=== PATIENT | female | born 1945 | race Caucasian/White ===

== ENCOUNTER → 2024-12-19 | Outpatient (CLI) | payer OTHER, SELFPAY ==
[2024-12-19 12:15] LABS: Basophils # (Auto) 0.1 Thou/mm3 (0.0-0.2); Basophils % (Auto) 1 % (0-2.5); Eosinophils # (Auto) 0.4 Thou/mm3 (0.0-0.5); Eosinophils % (Auto) 5 % (0-10); Hematocrit 45.6 % (36.0-46.0); Hemoglobin 15.0 g/dL (12.0-16.0); Immature Granulocytes Auto 0.03 Thou/mm3 (0.00-0.00); Lymphocytes # (Auto) 2.3 Thou/mm3 (1.0-4.8); Lymphocytes % (Auto) 30 % (10-50); Mean Corpuscular HGB Conc 32.9 g/dl (31.0-37.0); Mean Corpuscular Hemoglobin 30.7 pg (25.0-35.0); Mean Corpuscular Volume 93 fL (80-100); Monocytes # (Auto) 0.5 Thou/mm3 (0.0-0.8); Monocytes % (Auto) 7 % (0-12); Neutrophils # (Auto) 4.3 Thou/mm3 (1.8-7.7); Neutrophils % (Auto) 57 % (37-80); Nucleated Red Blood Cell # 0.00 Thou/mm3 (0.00-0.00); Nucleated Red Blood Cell % 0 /100 WBC (0); Platelet Count 260 Thou/mm3 (140-440); RDW Standard Deviation 45.6 fL (36.4-46.3); Red Blood Count 4.88 Miln/mm3 (4.00-5.20); White Blood Count 7.6 Thou/mm3 (3.6-11.0)
[2024-12-19 12:36] LABS: Alanine Aminotransferase 8 U/L (10-49); Albumin, Serum 4.0 gm/dL (3.4-4.8); Albumin/Globulin Ratio 1.6 (1.2-2.2); Alkaline Phosphatase 84 U/L (46-116); Anion Gap 10 (7-16); Aspartate Amino Transferase 15 U/L (0-34); BUN/Creatinine Ratio 9 Ratio (12-20); Bilirubin,Total 0.6 mg/dL (0.3-1.2); Blood Urea Nitrogen 8 mg/dL (9-23); Calcium 9.5 mg/dL (8.3-10.6); Calcium (Corrected) 9.5 mg/dL (8.5-10.1); Carbon Dioxide 26.0 mMol/L (20.0-31.0); Cardiac Risk Estimate 5.0 RATIO (3.7-5.6); Chloride 107 mMol/L (98-107); Cholesterol 229 mg/dL (132-200); Creatinine (Component) 0.9 mg/dL (0.6-1.3); Globulin 2.5 gm/dL (2.3-3.5); Glucose 104 mg/dL (74-106); HDL Cholesterol 46 mg/dL (40-60); LDL Cholesterol,Calculated 156 mg/dL (0-130); Osmolality,Calculated 283 (275-295); Potassium 4.1 mMol/L (3.4-5.1); Sodium 143 mMol/L (136-145); Total Protein 6.5 gm/dL (5.7-8.2); Triglycerides 134 mg/dL (30-150); eGFR > 60 See Note
[2024-12-19 12:50] LABS: Collection Type, Urine Clean Catch
[2024-12-19 13:35] LABS: Bacteria,Urine Rare; Bilirubin,Urine Negative (Negative); Blood,Urine Negative (Negative); Color,Urine Yellow (Lt Yel-Yel); Glucose, Urine Negative (Negative); Hyaline Casts,Urine < 1 /hpf (0-1); Ketones,Urine Negative (Negative); Leukocyte Esterase,Urine Positive (Negative); Nitrite,Urine Negative (Negative); PH,Urine 6.0 (5.0-7.0); Protein,Urine Trace (Neg - Trace); RBC,Urine 6 /hpf (0-3); Specific Gravity,Urine 1.022 (1.001-1.035); Squamous Epithelial Cell,Urine 20 /hpf (0-5); Urobilinogen,Urine Negative mg/dL (0.0-1.0); WBC,Urine 18 /hpf (0-5)
[2024-12-19 13:41] LABS: Clarity,Urine Hazy (Clear/Hazy)
== END | disposition home or self-care (01) ==
PROVIDERS: PCP Internal Medicine; Referring Provider Internal Medicine; Visit Provider Internal Medicine
DX: I10 Essential (primary) hypertension (principal); E78.5 Hyperlipidemia, unspecified
CPT/HCPCS: 36415; 80053; 80061; 81001; 85025

== ENCOUNTER → 2025-04-04 | Outpatient (CLI) | payer OTHER, SELFPAY ==
[2025-04-04 11:57] LABS: Collection Type, Urine Clean Catch
[2025-04-04 12:14] LABS: Basophils # (Auto) 0.1 Thou/mm3 (0.0-0.2); Basophils % (Auto) 1 % (0-2.5); Eosinophils # (Auto) 0.4 Thou/mm3 (0.0-0.5); Eosinophils % (Auto) 4 % (0-10); Hematocrit 45.3 % (36.0-46.0); Hemoglobin 15.0 g/dL (12.0-16.0); Immature Granulocytes Auto 0.04 Thou/mm3 (0.00-0.00); Lymphocytes # (Auto) 2.0 Thou/mm3 (1.0-4.8); Lymphocytes % (Auto) 22 % (10-50); Mean Corpuscular HGB Conc 33.1 g/dl (31.0-37.0); Mean Corpuscular Hemoglobin 30.5 pg (25.0-35.0); Mean Corpuscular Volume 92 fL (80-100); Monocytes # (Auto) 0.8 Thou/mm3 (0.0-0.8); Monocytes % (Auto) 9 % (0-12); Neutrophils # (Auto) 5.7 Thou/mm3 (1.8-7.7); Neutrophils % (Auto) 64 % (37-80); Nucleated Red Blood Cell # 0.00 Thou/mm3 (0.00-0.00); Nucleated Red Blood Cell % 0 /100 WBC (0); Platelet Count 251 Thou/mm3 (140-440); RDW Standard Deviation 45.6 fL (36.4-46.3); Red Blood Count 4.91 Miln/mm3 (4.00-5.20); White Blood Count 9.0 Thou/mm3 (3.6-11.0)
[2025-04-04 12:23] LABS: Glucose Estimated Average 120 mg/dL (80-131); Hemoglobin A1C 5.8 % Hgb (4.8-6.0)
[2025-04-04 12:25] LABS: Bacteria,Urine Rare; Bilirubin,Urine Negative (Negative); Blood,Urine Negative (Negative); Clarity,Urine Clear (Clear/Hazy); Color,Urine Yellow (Lt Yel-Yel); Glucose, Urine Negative (Negative); Hyaline Casts,Urine < 1 /hpf (0-1); Ketones,Urine Negative (Negative); Leukocyte Esterase,Urine Positive (Negative); Nitrite,Urine Negative (Negative); PH,Urine 6.5 (5.0-7.0); Protein,Urine Trace (Neg - Trace); RBC,Urine 3 /hpf (0-3); Specific Gravity,Urine 1.022 (1.001-1.035); Squamous Epithelial Cell,Urine 3 /hpf (0-5); Urobilinogen,Urine 3.0 mg/dL (0.0-1.0); WBC,Urine 6 /hpf (0-5)
[2025-04-04 12:33] LABS: Vitamin B12 402 pg/mL (211-911); Vitamin D 25 Hydroxy Total 59.6 ng/mL (7.3-40.2)
[2025-04-04 12:35] LABS: Alanine Aminotransferase 8 U/L (10-49); Albumin, Serum 4.4 gm/dL (3.4-4.8); Albumin/Globulin Ratio 2.0 (1.2-2.2); Alkaline Phosphatase 97 U/L (46-116); Anion Gap 10 (7-16); Aspartate Amino Transferase 17 U/L (0-34); BUN/Creatinine Ratio 8 Ratio (12-20); Bilirubin,Total 1.1 mg/dL (0.3-1.2); Blood Urea Nitrogen 7 mg/dL (9-23); Calcium 9.4 mg/dL (8.3-10.6); Calcium (Corrected) 9.4 mg/dL (8.5-10.1); Carbon Dioxide 27.9 mMol/L (20.0-31.0); Cardiac Risk Estimate 5.3 RATIO (3.7-5.6); Chloride 106 mMol/L (98-107); Cholesterol 210 mg/dL (132-200); Creatinine (Component) 0.9 mg/dL (0.6-1.3); Globulin 2.2 gm/dL (2.3-3.5); Glucose 93 mg/dL (74-106); HDL Cholesterol 40 mg/dL (40-60); LDL Cholesterol,Calculated 151 mg/dL (0-130); Osmolality,Calculated 284 (275-295); Potassium 3.5 mMol/L (3.4-5.1); Sodium 144 mMol/L (136-145); Thyroid Stimulating Hormone 3.75 uIU/mL (0.55-4.78); Total Protein 6.6 gm/dL (5.7-8.2); Triglycerides 93 mg/dL (30-150); Uric Acid 5.1 mg/dL (3.1-7.8); eGFR > 60 See Note
== END | disposition home or self-care (01) ==
PROVIDERS: PCP Internal Medicine; Referring Provider Internal Medicine; Visit Provider Internal Medicine
DX: Z00.00 Encounter for general adult medical examination without abnormal findings (principal); I10 Essential (primary) hypertension; E78.5 Hyperlipidemia, unspecified; E03.9 Hypothyroidism, unspecified; R73.03 Prediabetes; E79.0 Hyperuricemia without signs of inflammatory arthritis and tophaceous disease; D51.9 Vitamin B12 deficiency anemia, unspecified; E55.9 Vitamin D deficiency, unspecified
CPT/HCPCS: 36415; 80053; 80061; 81001; 82306; 82607; 83036; 84443; 84550; 85025

== ENCOUNTER → 2025-05-15 | Outpatient (CLI) | payer OTHER, SELFPAY ==
--- NOTE | 2025-05-15 13:00 | XR_ITS ---
Examination: Screening digital mammography, bilateral Computer aided detection 3-D breast Tomosynthesis, bilateral Date and time of exam: May 15, 2025, at 1317 hours, compared to mammograms dating to June 12, 2006 Indication: Screening Technique: Nonmagnified MLO, CC views of the breasts to been obtained, reconstructed from 3-D Tomosynthesis images. R2 computer aided detection program utilized for evaluation of suspicious masses and/or abnormal calcifications. 3-D Tomosynthesis images obtained. Findings: Scattered areas of fibroglandular density. Benign calcifications. No interval suspicious mass Impression: BI-RADS category II: Benign Findings. Recommend 1 year follow-up mammogram.
--- NOTE | 2025-05-15 13:15 | XR_ITS ---
Examination: Bone densitometry Date and time of exam: May 15, 2025, 1339 hours INDICATIONS: Menopause age 55 Technique: Lumbar spine and hip total bone mineralization values of an calculated. Peak reference and age match control results have been displayed. Findings: Lumbar spine total bone mineralization is 1.213 gm/cm2. This is 1.5 standard deviations above peak reference. This is 4.1 standard deviations above age-matched controls. Hip total bone mineralization is 1.826 gm/cm2 This is 1.0 standard deviations below peak reference. This is 1.0 standard deviations above age-matched controls Impression: There is normal mineralization based on lumbar spine measurements. There is osteopenia based on hip measurements Lumbar mineralization is increased 14.6% compared to January 02, 2010 Hip mineralization is decreased 19.2% compared with January 03, 2000
== END | disposition home or self-care (01) ==
LOC: CDIM 13:09
PROVIDERS: PCP Internal Medicine; Referring Provider Internal Medicine; Visit Provider Internal Medicine
DX: Z12.31 Encounter for screening mammogram for malignant neoplasm of breast (principal); R92.323 Mammographic fibroglandular density, bilateral breasts; R92.1 Mammographic calcification found on diagnostic imaging of breast; M85.89 Other specified disorders of bone density and structure, multiple sites
CPT/HCPCS: 77063; 77067; 77080

== ENCOUNTER 2025-06-01 14:47 | Inpatient (IN) | payer OTHER, MEDICARE, SELFPAY ==
[2025-06-01 14:48] VITALS: BP 143/86; PULSE 98; RESP 18; TEMP 36.4; O2SAT 95
--- NOTE | 2025-06-01 15:51 | PC.NURSE ---
Pt BIBA from home, lives alone. Hx Dementia and HLD per EMS. Daughter told EMS she had attempted to contact pt with no success, called PD for wellfare check, they were unable to make contact. Dtr ended up going to check on pt herself and found her laying in bed, very weak and lethargic. Called EMS due to the inability/fear of taking the pt to urgent care herself. Pt denies pain, unsure of symptoms, able to state Name, Birthday, and location, but not current month and upcoming holiday. Waiting for dtr to arrived (EMS stated that she should be on her way) to get more info/accurate info. Pt currently stable, and lying in gurney awake.
--- NOTE | 2025-06-01 16:02 | PC.NURSE ---
Dtr states pt has been sick for awhile and has not been getting better. States when she called pt yesterday, pt took awhile to answer (usually answers quickly), and today could not get ahold of her. Dtr found pt in recliner, naked. Pt was able to walk when dtr saw her. Pt has been coughing a bunch per dtr. Takes losartan, has a hernia, atorvastatin, mematine.
--- NOTE | 2025-06-01 16:17 | EKG_ITS ---
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: : [id number] Requested By: Melly Turner Order Number: [id number] Reading MD: Melly Turner Measurements Intervals [place] Rate: 85 P: 26 HI: 164 QRS: -13 QRSD: 107 T: 65 QT: 398 QTc: 474 Interpretive Statements SINUS RHYTHM WITH OCCASIONAL VENTRICULAR PREMATURE COMPLEXES WITH OCCASIONAL SUPRAVENTRICULAR PREMATURE COMPLEXES MINIMAL VOLTAGE CRITERIA FOR LVH, CONSIDER NORMAL VARIANT [MEETS CRITERIA IN ONE OF: R(aVL), S(V1), R(V5), R(V5/V6)+S(V1)] NONSPECIFIC T-WAVE ABNORMALITY Compared to ECG 11/19/2023 09:56:23 Ventricular premature complex(es) now present T-wave abnormality now present /store/S0/[id number]/[id number].pdf
--- NOTE | 2025-06-01 16:19 | XR_ITS ---
Examination: CT brain head without contrast. 2-D sagittal coronal reconstructions Date and time of exam: June 01, 2025, 1804 hours INDICATIONS: Altered mental status confusion today CTDI: vol (mGy): 47.1 DLP: (mGycm): 897 Technique: Multiple CT axial sections of the brain have been obtained, 5 mm slice thickness. Contrast has not been administered. 2-D sagittal, coronal reconstructions have been obtained Low dose protocols were performed. One or more of the following dose reduction techniques were used; automated exposure control, adjustment of the mA and/or KV according to patient size, use of iterative reconstruction technique. Findings: No significant ventricular enlargement. Intra-axial or extra-axial hemorrhage density is not seen. No mass effect or midline shift Basal cisterns are not remarkable. Fourth ventricle is midline. Cranial vault intact. Impression: Negative for acute hemorrhage, mass effect or midline shift Advise clinical correlation and follow-up accordingly
--- NOTE | 2025-06-01 16:20 | PD.EDWEAK ---
ED Weakness RME/HPI General Chief complaint: Weakness Stated complaint: WEAKNESS Time Seen by Provider: 06/01/25 15:50 Arrival date/time: 06/01/25 14:47 80-year-old female patient with significant history of new onset dementia, hypertension, hypercholesterolemia, was brought in by EMS for evaluation regarding confusion. According to the family patient was noted to be slow to response, and complaining of feeling very tired since yesterday afternoon. Earlier today patient called the patient and patient is not responding or answering the text. Patient called law enforcement for welfare check. They help to forcibly open the door to get in. Patient was found naked lying on the couch. On my initial evaluation patient answer simple question, and denies any complaints. GCS of 14. According to the family who was at the bedside, told me that patient has been sick with flulike symptoms for 1 month. Was not able to do much for the last 1 month. Patient usually very active doing her own shopping and laundry. No other complaints noted. Related Data Home Medications ?Medication ?Instructions ?Recorded ?Confirmed losartan 100 mg tablet 100 mg PO QDAY 02/19/19 11/20/23 acetaminophen 500 mg tablet 500 mg PO Q6H PRN Pain 11/19/23 11/19/23 ascorbic acid (vitamin C) 500 mg 500 mg PO QDAY 11/19/23 11/20/23 tablet (Vitamin C) aspirin 81 mg tablet,delayed 81 mg PO QDAY 11/19/23 11/20/23 release atorvastatin 10 mg tablet 10 mg PO HS 11/19/23 11/20/23 biotin 1 mg capsule 1 mg PO QDAY 11/19/23 11/20/23 calcium 600 mg capsule 600 mg PO DAILY 11/19/23 11/20/23 cholecalciferol (vitamin D3) 25 25 mcg PO QDAY 11/19/23 11/20/23 mcg (1,000 unit) chewable tablet (Vitamin D3) cyclobenzaprine 5 mg tablet 5 mg PO HS PRN Spasms 11/19/23 11/19/23 meclizine 12.5 mg tablet 12.5 mg PO TID PRN Dizziness 11/19/23 11/20/23 montelukast 10 mg tablet 10 mg PO QPM 11/19/23 11/20/23 (Singulair) vitamin B12 0.5 mg-folic acid 1 mg 1 tab PO QDAY 11/19/23 11/20/23 tablet Allergies Allergy/AdvReac Type Severity Reaction Status Date / Time latex Allergy Severe RASH Verified 11/20/23 12:57 Review of Systems Review of Systems Narrative Review of Systems: Review of system reviewed and within normal limits except mentioned in HPI ED Exam Narrative Physical exam: VITAL SIGNS: Reviewed. GENERAL APPEARANCE: Alert and oriented x 3, follows commands, no acute distress, GCS 14 HEAD AND FACE: Non-traumatic. ENT: PERRL, pink conjunctivitis, eyelid no trauma, Mucous membrane moist. NECK: Supple, nontender, no nuchal rigidity. CHEST: No tenderness, no crepitus, no paradoxical movement, no retractions. LUNGS: Clear, well ventilated, symmetric, no rales, no wheezing, no ronchi, no stridor, good breath sounds bilaterally. HEART: Regular rate, regular rhythm, no murmur, no gallops. ABDOMEN: Soft, positive bowel sounds, nondistended, no guarding, nontender, no rebound, no masses, RECTAL: Deferred. GENITAL: Deferred. NEUROLOGICAL: Gross motor function intact sensory function intact, Appropriate for age. MUSCULOSKELETAL: low back nontender, full range of motion. EXTREMITIES: Nontender, full range of motion. SKIN: Color pink, dry, no rash, no lacerations, no abrasions, no contusions. LYMPHATICS: Deferred. Course Quality Measures none Orders Category Date Time Status admission [Admit to Inpatient Status] Routine Admission 06/01/25 21:11 Active Bedside COVID-19 Antigen Test NOW Care 06/01/25 16:19 Active Bedside Influenza A&B Antigen Test NOW Care 06/01/25 16:20 Completed COVID-19 Screening Questionnaire NOW Care 06/01/25 21:[address] Screening NOW Care 06/01/25 18:40 Active Group Director STAT Care 06/01/25 16:17 Active Continuous Pulse Oximetry STAT Care 06/01/25 16:17 Active Decision to Admit X1 Care 06/01/25 21:06 Active EKG (ED ONLY) *Do not use* NOW Care 06/01/25 16:17 Completed In and Out Catheter X1PRN Care 06/01/25 16:17 Completed Insert IV NOW Care 06/01/25 16:17 Active NPO STAT Care 06/01/25 16:17 Active Neuro Check Q4H Care 06/01/25 21:12 Active Strict Intake and Output Routine Care 06/01/25 16:17 Ordered Diet Cardiac Diet 06/01/[address] chest abdomen pelvis w Stat Exams 06/01/25 18:[address] head/brain wo con Stat Exams 06/01/25 16:19 Completed EKG (ED Only) Stat Exams 06/01/25 16:17 Draft Ammonia Stat Lab 06/01/25 20:59 Ordered B-Type Natriuretic Peptide Stat Lab 06/01/25 16:20 Completed Blood Culture (Lab) Stat Lab 06/01/25 17:00 Received CBC AM DRAW Lab 06/02/25 05:00 Ordered CBC AM DRAW Lab 06/03/25 05:00 Ordered CBC AM DRAW Lab 06/04/25 05:00 Ordered CBC Stat Lab 06/01/25 16:20 Completed Comprehensive Metabolic Panel AM DRAW Lab 06/02/25 05:00 Ordered Comprehensive Metabolic Panel AM DRAW Lab 06/03/25 05:00 Ordered Comprehensive Metabolic Panel AM DRAW Lab 06/04/25 05:00 Ordered Comprehensive Metabolic Panel Stat Lab 06/01/25 16:20 Completed LDH (Lactate Dehydrogenase) Stat Lab 06/01/25 16:20 Completed Lactate (Lactic Acid) Stat Lab 06/01/25 16:20 Completed Lactic Acid [Lactate (Lactic Acid)] Routine Lab 06/02/25 05:00 Ordered Lactic Acid, 3 HR Stat Lab 06/01/25 20:15 Completed Lipase Stat Lab 06/01/25 16:20 Completed Magnesium Stat Lab 06/01/25 16:20 Completed Partial Thromboplastin Time Stat Lab 06/01/25 20:15 Completed Phosphorous Stat Lab 06/01/25 16:20 Completed Procalcitonin Stat Lab 06/01/25 16:20 Completed Prothrombin Time with INR Stat Lab 06/01/25 20:15 Completed Troponin I Stat Lab 06/01/25 16:20 Completed Urinalysis, C/S if Indicated Stat Lab 06/01/25 17:50 Completed Piper/Tazo 3.375 gm Premix [Zosyn] Med 06/01/25 21:12 Pending 3.375 gm in 50 ml IV Q6HR Piper/Tazo 3.375 gm Premix [Zosyn] Med 06/01/25 21:15 Active 3.375 gm in 50 ml IV X1 Ringers Lactated 1000 ml [Lactated Ringers] 1,000 ml Med 06/01/25 16:18 Discontinued IV 999 mls/hr Ringers Lactated 1000 ml [Lactated Ringers] 1,000 ml Med 06/01/25 21:12 Active IV 999 mls/hr Sodium Chloride 0.45 % [Ns 0.45%] 1,000 ml Med 06/01/25 21:11 Active IV 125 mls/hr cefTRIAXone/D5w 1gm IV premix [Rocephin/D5w 1gm IV Med 06/01/25 16:17 Discontinued premix] 1 gm in 50 ml IV X1 Code Status Routine Oth 06/01/25 21:11 Ordered Oxygen Delivery NOW RT 06/01/25 16:17 Active Vital Signs Vital signs: Vital Signs Temperature 97.5 F 06/01/25 14:48 Pulse Rate 98 06/01/25 14:48 Respiratory Rate 18 06/01/25 14:48 Blood Pressure 143/86 H 06/01/25 14:48 Pulse Oximetry (%) 95 06/01/25 14:48 Oxygen Delivery Method Room Air 06/01/25 14:48 Weakness MDM Narrative MDM Narrative:: 06/01/25 14:47 80-year-old female patient with significant history of new onset dementia, hypertension, hypercholesterolemia, was brought in by EMS for evaluation regarding confusion. According to the family patient was noted to be slow to response, and complaining of feeling very tired since yesterday afternoon. Earlier today patient called the patient and patient is not responding or answering the text. Patient called law enforcement for welfare check. They help to forcibly open the door to get in. Patient was found naked lying on the couch. On my initial evaluation patient answer simple question, and denies any complaints. GCS of 14. According to the family who was at the bedside, told me that patient has been sick with flulike symptoms for 1 month. Was not able to do much for the last 1 month. Patient usually very active doing her own shopping and laundry. No other complaints noted. EKG showed sinus rhythm, ventricular rate of 85 bpm, no ST segment elevation depression noted. Laboratory workup is significant for leukocytosis of 20.7. Patient initial lactic acid was noted to be 4.3, after 1 L of fluids still high 3.1 Patient received total of 2 L IV fluids, and IV ceftriaxone. Plan of care discussed with the patient and family who agrees to be admitted Urinalysis no UTI. CT scan of the head came back unremarkable. CT scan of the chest abdomen pelvis also came back unremarkable. I spoke with Dr. Tony, patient's PCP, who admitted the patient. Patient data External records reviewed:: None Clinical information provided by:: patient and family Social determinants that could affect healthcare access:: none Patient has the following chronic illnesses:: Hyperlipidemia hypertension dementia How is presenting disease/condition affected by chronic disease/condition?: exacerbated by Evaluation data The following diagnostics were reviewed and interpreted by me:: lab results, radiology exam(s) and EKG tracing(s) Lab and/or radiology exams considered but not ordered:: None Interpretation Summary: See above Medications / Prescriptions Medications or Prescriptions considered but not ordered:: None Medication administrations:: Medication Administration History Lactated Ringer's (Lactated Ringers) 1,000 mls @ 999 mls/hr IV .Q1H1M ONE Stop: 06/01/25 22:12 Sodium Chloride (Ns 0.45%) 1,000 mls @ 125 mls/hr IV .Q8H ONE Stop: 06/02/25 05:10 Piperacillin/Tazobactam/Dextrose (Zosyn) 3.375 gm in 50 mls @ 100 mls/hr IV Q6HR ONE; Protocol Stop: 06/01/25 21:41 Piperacillin/Tazobactam/Dextrose (Zosyn) 3.375 gm in 50 mls @ 100 mls/hr IV X1 ONE; Protocol Stop: 06/01/25 21:44 Discontinued Medications Ceftriaxone Sodium/Dextrose (Rocephin/D5w 1gm Iv Premix) 1 gm in 50 mls @ 100 mls/hr IV X1 ONE Stop: 06/01/25 16:46 Last Infusion: 06/01/25 19:32 Dose: Infused Documented By: Admin: 06/01/25 17:02 Dose: 100 mls/hr Documented By: BROOKLYN Lactated Ringer's (Lactated Ringers) 1,000 mls @ 999 mls/hr IV .Q1H1M ONE Stop: 06/01/25 17:18 Last Infusion: 06/01/25 20:23 Dose: Infused Documented By: Admin: 06/01/25 17:02 Dose: 999 mls/hr Documented By: BROOKLYN Stable Consultations Consultation(s) initiated? (list below): No Diagnosis Weakness Differential Diagnosis: sepsis and dehydration Most likely diagnosis given after review of the tests above:: Altered mental status, sepsis, Admission Indicated Admission indicated?: not indicated Admission Request Was there a request for admission?: Yes Admission Attestation Admission request attestation: Dr Tony [agrees,d to accept the patient for admission. Disposition Plan Disposition Plan: Admit Discharge Plan Plan Patient Disposition: Admit Acute Care w/in Hospital Prescriptions/Referrals Prescriptions/Med Rec: No Action losartan 100 mg Tablet 100 mg PO QDAY calcium 600 mg Capsule 600 mg PO DAILY atorvastatin 10 mg tablet 10 mg PO HS Patient Comments: TAKE 1 TABLET BY MOUTH EVERYDAY AT BEDTIME meclizine 12.5 mg Tablet 12.5 mg PO TID PRN (Reason: Dizziness) aspirin 81 mg Tablet,Delayed Release (Dr/Ec) 81 mg PO QDAY acetaminophen 500 mg Tablet 500 mg PO Q6H PRN (Reason: Pain) ascorbic acid (vitamin C) [Vitamin C] 500 mg Tablet 500 mg PO QDAY montelukast [Singulair] 10 mg Tablet 10 mg PO QPM cyclobenzaprine 5 mg Tablet 5 mg PO HS PRN (Reason: Spasms) vitamin W40-btmga acid 0.5-1 mg Tablet 1 tab PO QDAY cholecalciferol (vitamin D3) [Vitamin D3] 25 mcg (1,000 unit) Tablet,Chewable 25 mcg PO QDAY biotin 1 mg Capsule 1 mg PO QDAY Referrals: Radu Tony MD [Primary Care Provider, Nephrology] - In 1 week Problem List Clinical Impression: Sepsis, Altered mental status Patient/Caregiver Discharge Instructions Print Language: Polish Stand Alone Forms: Marah Award Info., Patient Portal Info Letter
[2025-06-01 16:52] LABS: Basophils # (Auto) 0.1 Thou/mm3 (0.0-0.2); Basophils % (Auto) 0 % (0-2.5); Eosinophils # (Auto) 0.1 Thou/mm3 (0.0-0.5); Eosinophils % (Auto) 1 % (0-10); Hematocrit 50.9 % (36.0-46.0); Hemoglobin 17.2 g/dL (12.0-16.0); Immature Granulocytes Auto 0.19 Thou/mm3 (0.00-0.00); Lymphocytes # (Auto) 1.2 Thou/mm3 (1.0-4.8); Lymphocytes % (Auto) 6 % (10-50); Mean Corpuscular HGB Conc 33.8 g/dl (31.0-37.0); Mean Corpuscular Hemoglobin 30.6 pg (25.0-35.0); Mean Corpuscular Volume 90 fL (80-100); Monocytes # (Auto) 1.0 Thou/mm3 (0.0-0.8); Monocytes % (Auto) 5 % (0-12); Neutrophils # (Auto) 18.2 Thou/mm3 (1.8-7.7); Neutrophils % (Auto) 88 % (37-80); Nucleated Red Blood Cell # 0.07 Thou/mm3 (0.00-0.00); Nucleated Red Blood Cell % 0 /100 WBC (0); Platelet Count 220 Thou/mm3 (140-440); RDW Standard Deviation 51.3 fL (36.4-46.3); Red Blood Count 5.63 Miln/mm3 (4.00-5.20); White Blood Count 20.7 Thou/mm3 (3.6-11.0)
[2025-06-01 16:54] LABS: Lactate (Lactic Acid) 4.3 mMol/L (0.4-2.0)
[2025-06-01] MEDS: RINGERS LACTATED 1000 ML 1,000 ML 999 ML IV ×2 (17:02→22:51)
[2025-06-01] MEDS: cefTRIAXone/D5w 1gm IV premix 1 GM/50 ML BAG IV (17:02)
[2025-06-01 17:10] LABS: B-Type Natriuretic Peptide 52 pg/mL (0-100)
[2025-06-01 17:27] LABS: Alanine Aminotransferase 9 U/L (10-49); Albumin, Serum 4.3 gm/dL (3.4-4.8); Albumin/Globulin Ratio 1.3 (1.2-2.2); Alkaline Phosphatase 100 U/L (46-116); Anion Gap 17 (7-16); Aspartate Amino Transferase 24 U/L (0-34); BUN/Creatinine Ratio 24 Ratio (12-20); Bilirubin,Total 2.3 mg/dL (0.3-1.2); Blood Urea Nitrogen 24 mg/dL (9-23); Calcium 9.9 mg/dL (8.3-10.6); Calcium (Corrected) 9.9 mg/dL (8.5-10.1); Carbon Dioxide 24.9 mMol/L (20.0-31.0); Chloride 106 mMol/L (98-107); Creatinine (Component) 1.0 mg/dL (0.6-1.3); Globulin 3.2 gm/dL (2.3-3.5); Glucose 134 mg/dL (74-106); LDH (Lactate Dehydrogenase) 350 U/L (120-246); Lipase 43 U/L (12-53); Magnesium 2.1 mg/dL (1.6-2.6); Osmolality,Calculated 300 (275-295); Phosphorous 1.8 mg/dL (2.4-5.1); Potassium 3.4 mMol/L (3.4-5.1); Procalcitonin 0.23 ng/ml (0.0-0.49); Sodium 148 mMol/L (136-145); Total Protein 7.5 gm/dL (5.7-8.2); Troponin I < 0.020 ng/mL (0.0-0.045); eGFR 58 See Note
[2025-06-01 18:07] LABS: Collection Type, Urine Clean Catch
[2025-06-01 18:14] LABS: Bilirubin,Urine 1+ (Negative); Blood,Urine Negative (Negative); Clarity,Urine Clear (Clear/Hazy); Color,Urine Yellow (Lt Yel-Yel); Culture Indicated,Urine Not Indicated; Glucose, Urine Negative (Negative); Ketones,Urine 1+ (Negative); Leukocyte Esterase,Urine Negative (Negative); Nitrite,Urine Negative (Negative); PH,Urine 6.0 (5.0-7.0); Protein,Urine Trace (Neg - Trace); RBC,Urine 1 /hpf (0-3); Specific Gravity,Urine 1.029 (1.001-1.035); Squamous Epithelial Cell,Urine < 1 /hpf (0-5); Urobilinogen,Urine 4.0 mg/dL (0.0-1.0); WBC,Urine 3 /hpf (0-5)
[2025-06-01 18:37] VITALS: BP 171/94; PULSE 83; RESP 19; TEMP 36.5; O2SAT 95
--- NOTE | 2025-06-01 18:40 | XR_ITS ---
Examination: CT chest with intravenous contrast CT abdomen with intravenous contrast CT pelvis with intravenous contrast 2-D coronal and sagittal reconstructions Time of exam: June 011931 hours INDICATIONS: Sepsis alert today, unknown source of the sepsis CTDI: vol (mGy) : 9.46 DLP: (mGycm): 678 Technique: Multiple axial images of the chest, abdomen and pelvis with intravenous contrast, 3.0 mm slice thickness. Images obtained post intravenous injection Isovue 370 60 cc. 2-D sagittal and coronal reconstructions. Low dose protocols were performed. One or more of the following dose reduction techniques were used; automated exposure control, adjustment of the mA and/or KV according to patient size, use of iterative reconstruction technique. Findings: No thoracic aortic aneurysmal dilatation No pulmonary artery emboli No mediastinal lymphadenopathy Moderate vascular congestion No lobar pneumonia Liver is irregular in contour, no focal liver lesions Gallbladder is not visualized No pancreatic mass Spleen is not enlarged No adrenal masses No renal or ureteral calculi, no hydronephrosis Aorta normal size No pericecal inflammatory change Scattered colonic diverticulosis, no diverticulitis Severe osteopenia with diffuse thoracic lumbar degenerative disc disease Atrophic uterus Contracted urinary bladder around a Ferrer catheter IMPRESSION: Moderate vascular congestion No pneumonia or pulmonary edema Cirrhosis versus primary hepatocellular disease No abdominal or pelvic abscess
[2025-06-01 19:45] LABS: Reflex Lactate? Y
[2025-06-01 20:24] LABS: Lactic Acid, 3 HR 3.1 mMol/L (0.4-2.0)
[2025-06-01 20:34] VITALS: BP 145/105; PULSE 77; RESP 19; TEMP 36.7; O2SAT 99
[2025-06-01 20:48] LABS: INR 1.3 (0.9-1.3); Partial Thromboplastin Time 28.8 Seconds (22.0-36.0); Prothrombin Time 13.5 Seconds (9.0-12.2)
--- NOTE | 2025-06-01 21:14 | PD.NEPHHP ---
Documentation for date of: 06/01/25 Meds Home Medications and Allergies Home Medications ?Medication ?Instructions ?Recorded ?Confirmed ?Type losartan 100 mg tablet 100 mg PO QDAY 02/19/19 06/02/25 History ascorbic acid (vitamin C) 500 mg 500 mg PO QDAY 11/19/23 06/02/25 History tablet (Vitamin C) aspirin 81 mg tablet,delayed 81 mg PO QDAY 11/19/23 06/02/25 History release atorvastatin 10 mg tablet 10 mg PO HS 11/19/23 06/02/25 History biotin 1 mg capsule 1 mg PO QDAY 11/19/23 06/02/25 History calcium 600 mg capsule 600 mg PO DAILY 11/19/23 06/02/25 History cholecalciferol (vitamin D3) 25 25 mcg PO QDAY 11/19/23 06/02/25 History mcg (1,000 unit) chewable tablet (Vitamin D3) cyclobenzaprine 5 mg tablet 5 mg PO HS PRN Spasms 11/19/23 06/02/25 History meclizine 12.5 mg tablet 12.5 mg PO TID PRN Dizziness 11/19/23 06/02/25 History montelukast 10 mg tablet 10 mg PO QPM 11/19/23 06/02/25 History (Singulair) vitamin B12 0.5 mg-folic acid 1 mg 1 tab PO QDAY 11/19/23 06/02/25 History tablet atorvastatin 40 mg tablet 40 mg PO HS 06/02/25 06/02/25 History ketoconazole 2 % topical cream 1 applic topical BID 06/02/25 06/02/25 History memantine 10 mg tablet 10 mg PO HS 06/02/25 06/02/25 History Allergies Allergy/AdvReac Type Severity Reaction Status Date / Time latex Allergy Severe RASH Verified 11/20/23 12:57 Exam Vital Signs Temp Pulse Resp BP Pulse Ox O2 Del Method O2 Flow Rate 36.7 C 77 19 145/105 H 99 Nasal Cannula 3 06/01/25 20:34 06/01/25 20:34 06/01/25 20:34 06/01/25 20:34 06/01/25 20:34 06/01/25 20:34 06/01/25 20:34 Results: Labs 06/02/25 05:40 06/02/25 05:40 Labs: Short CBC 06/01/25 Range/Units 16:20 WBC 20.7 H (3.6-11.0) Thou/mm3 Hgb 17.2 H (12.0-16.0) g/dL Hct 50.9 H (36.0-46.0) % Plt Count 220 (140-440) Thou/mm3 BMP 06/01/25 16:20 Sodium 148 H Potassium 3.4 Chloride 106 Carbon Dioxide 24.9 BUN 24 H Creatinine 1.0 Glucose 134 H Calcium 9.9 Cardiac Enzymes 06/01/25 Range/Units 16:20 Troponin I < 0.020 (0.0-0.045) ng/mL Liver Function 06/01/25 Range/Units 16:20 Total Bilirubin 2.3 H (0.3-1.2) mg/dL AST 24 (0-34) U/L ALT 9 L (10-49) U/L Alkaline Phosphatase 100 (46-116) U/L Albumin 4.3 (3.4-4.8) gm/dL Urine 06/01/25 Range/Units 17:50 Urine Color Yellow (Lt Yel-Yel) Urine Clarity Clear (Clear/Hazy) Urine pH 6.0 (5.0-7.0) Ur Specific [place] 1.029 (1.001-1.035) Urine Protein Trace (Neg - Trace) Urine Glucose (UA) Negative (Negative)
--- NOTE | 2025-06-01 21:40 | PD.RESHP ---
Documentation for date of: 06/01/25 [facility] History of Present Illness Chief complaint: AMS History of present illness: Patient is a 80 year old female with PMH of new onset dementia, hypertension, HLD who presented with progressive confusion over the past month. History was obtained from patient's daughter Edilam due to patient's altered mental status. Patient has had ongoing memory issues for the past 2 months, AOx1 for the past month. Also had intermittent flulike symptoms for the past month including nonproductive cough, fatigue, and a 2 day episode of n/v and diarrhea (in mid April), all of which has progressively made her weaker and less active per daughter. Previously independent with ADLs. Daughter suspects patient has not been taking her medications for the past few weeks and her house has become more unkempt over the past month. Patient lives at home alone, daughter lives in [place] and visits every weekend. Noted to be slower to respond and more tired for the past 2 days. Daughter tried to call her yesterday around noon, was not responding. Law enforcement was called due to concern, patient was found naked in recliner, altered. Upon ED arrival, GCS 14. BP 143/86, all other vitals stable. WBC 20.7, hemoglobin 17.2. Sodium 148. Anion gap 17, bicarb 24.9. BUN 24, creatinine 1.0 (baseline 0.7-0.9). Glucose 134. Lactic 4.3, LDH 350, procal negative. Calcium 9.9, phosphorus 1.8, Mg 2.1. Total bili 2.3 but liver enzymes and alk phos within normal limits. Ammonia <10. Troponin negative, BNP WNL. EKG showed sinus rhythm with occasional PVCs, no ST abnormalities noted UA showed 1+ ketones and 1+ bilirubin, negative for UTI. Head CT negative for acute infarct. CT CAP showed cirrhosis but otherwise unremarkable. Given LR bolus x2, CFX x1 Patient admitted for acute encephalopathy and sepsis rule out, unclear infection source at this time. Past Medical History: as above Family History: noncontributory Surgical History: bilateral knee arthroscopy, bilateral heel bone spur surgery Social History: Denies history of smoking, denies current alcohol use, denies recreational drug use Current Medications: ASA 81 daily, atorvastatin 40 nightly, biotin 1 mg daily, vit D3, calcium 600 mg daily, cyclobenzaprine 5 mg prn, losartan 100 mg daily, meclizine prn, memantine 10 mg nightly, montelukast 10 mg nightly, vit B12 folic acid daily Allergies: Latex (rash) Exam Vital Signs Temp Pulse Resp BP Pulse Ox O2 Del Method O2 Flow Rate 98.5 F 105 H 20 180/75 H 100 High Flow Nasal Cannula 40 06/02/25 12:00 06/02/25 12:00 06/02/25 12:00 06/02/25 12:00 06/02/25 12:00 06/02/25 12:00 06/02/25 12:00 FiO2 90 06/02/25 12:00 Narrative Exam Physical Exam General: Drowsy. Altered. GCS 14. HEENT: Normocephalic, atraumatic, mucous membranes dry. Heart: Regular rate and rhythm, normal S1 and S2, no murmurs appreciated. Lungs: Clear to auscultation with no wheezing or crackles. Abdomen: Soft, nondistended, nontender, positive bowel sounds. No guarding or rebound tenderness. Neurologic: Unable to assessed due to altered mental status. Extremities: No edema. Skin: No rash or ecchymoses. Results: Labs 06/03/25 05:20 06/03/25 16:42 Labs: Short CBC 06/01/25 06/02/25 Range/Units 16:20 05:40 WBC 20.7 H 16.0 H (3.6-11.0) Thou/mm3 Hgb 17.2 H 15.3 (12.0-16.0) g/dL Hct 50.9 H 44.1 (36.0-46.0) % Plt Count 220 193 (140-440) Thou/mm3 [facility] 06/01/25 06/02/25 16:20 05:40 Sodium 148 H 144 Potassium 3.4 2.7 L* D Chloride 106 106 Carbon Dioxide 24.9 23.9 BUN 24 H 16 Creatinine 1.0 0.6 Glucose 134 H 105 Calcium 9.9 9.0 Cardiac Enzymes 06/01/25 Range/Units 16:20 Troponin I < 0.020 (0.0-0.045) ng/mL Liver Function 06/01/25 06/02/25 Range/Units 16:20 05:40 Total Bilirubin 2.3 H 1.4 H D (0.3-1.2) mg/dL AST 24 21 (0-34) U/L ALT 9 L < 7 L (10-49) U/L Alkaline Phosphatase 100 88 (46-116) U/L Albumin 4.3 3.6 D (3.4-4.8) gm/dL Urine 06/01/25 Range/Units 17:50 Urine Color Yellow (Lt Yel-Yel) Urine Clarity Clear (Clear/Hazy) Urine pH 6.0 (5.0-7.0) Ur Specific [place] 1.029 (1.001-1.035) Urine Protein Trace (Neg - Trace) Urine Glucose (UA) Negative (Negative) Quality Measures Quality Measures none Advance care planning discussed with:: child Medications Home Medications and Allergies Home Medications ?Medication ?Instructions ?Recorded ?Confirmed ?Type losartan 100 mg tablet 100 mg PO QDAY 02/19/19 06/02/25 History ascorbic acid (vitamin C) 500 mg 500 mg PO QDAY 11/19/23 06/02/25 History tablet (Vitamin C) aspirin 81 mg tablet,delayed 81 mg PO QDAY 11/19/23 06/02/25 History release atorvastatin 10 mg tablet 10 mg PO HS 11/19/23 06/02/25 History biotin 1 mg capsule 1 mg PO QDAY 11/19/23 06/02/25 History calcium 600 mg capsule 600 mg PO DAILY 11/19/23 06/02/25 History cholecalciferol (vitamin D3) 25 25 mcg PO QDAY 11/19/23 06/02/25 History mcg (1,000 unit) chewable tablet (Vitamin D3) cyclobenzaprine 5 mg tablet 5 mg PO HS PRN Spasms 11/19/23 06/02/25 History meclizine 12.5 mg tablet 12.5 mg PO TID PRN Dizziness 11/19/23 06/02/25 History montelukast 10 mg tablet 10 mg PO QPM 11/19/23 06/02/25 History (Singulair) vitamin B12 0.5 mg-folic acid 1 mg 1 tab PO QDAY 11/19/23 06/02/25 History tablet atorvastatin 40 mg tablet 40 mg PO HS 06/02/25 06/02/25 History ketoconazole 2 % topical cream 1 applic topical BID 06/02/25 06/02/25 History memantine 10 mg tablet 10 mg PO HS 06/02/25 06/02/25 History Allergies Allergy/AdvReac Type Severity Reaction Status Date / Time latex Allergy Severe RASH Verified 11/20/23 12:57 Visit Medications Ascorbic Acid (Ascorbic Acid 250 Mg Tablet) 500 mg PO QDAY [facility] Stop: 07/02/25 11:44 Last Admin: 06/02/25 11:46 Dose: 500 mg Atorvastatin Calcium (Atorvastatin Calcium 20 Mg Tablet) 40 mg PO HS [facility] Stop: 07/02/25 20:59 Calcium Carbonate (Calcium Carbonate 600 Mg Tablet) 600 mg PO DAILY [facility] Stop: 07/03/25 08:59 Cyclobenzaprine HCl (Cyclobenzaprine 5 Mg Tablet) 5 mg PO HS PRN PRN Reason: Spasms Stop: 07/02/25 11:34 Losartan Potassium (Losartan Potassium 25 Mg Tablet) 100 mg PO QDAY [facility] Stop: 07/02/25 11:44 Last Admin: 06/02/25 11:49 Dose: 100 mg Meclizine HCl (Meclizine Hcl 25 Mg Tablet) 12.5 mg PO TID PRN PRN Reason: Dizziness Memantine (Memantine Hcl 5 Mg Tablet) 10 mg PO HS [facility] Stop: 07/02/25 20:59 Montelukast Sodium (Montelukast Sodium 10 Mg Tablet) 10 mg PO QPM [facility] Stop: 07/02/25 20:59 Vitamin B Complex/Vit C/Folic Acid (Vit B12/Vit C/Fa (Nephrovite) Tablet) 1 tab PO QDAY [facility] Stop: 07/02/25 11:44 Last Admin: 06/02/25 11:46 Dose: 1 tab Vitamin D (Cholecalciferol (Vitamin D3) 1,000 Iu Tablet) 1,000 iu PO QDAY [facility] Stop: 07/03/25 08:59 Discontinued Medications Gentamicin Sulfate (Gentamicin Op Malinda 0.3% 5 Ml Btl) 0 drop BOTH EYES X1 ONE Stop: 06/02/25 08:30 Last Admin: 06/02/25 10:50 Dose: 1 drop Ceftriaxone Sodium/Dextrose (Rocephin/D5w 1gm Iv Premix) 1 gm in 50 mls @ 100 mls/hr IV X1 ONE Stop: 06/01/25 16:46 Last Infusion: 06/01/25 19:32 Dose: Infused Lactated Ringer's (Lactated Ringers) 1,000 mls @ 999 mls/hr IV .Q1H1M ONE Stop: 06/01/25 17:18 Last Infusion: 06/01/25 20:23 Dose: Infused Lactated Ringer's (Lactated Ringers) 1,000 mls @ 999 mls/hr IV .Q1H1M ONE Stop: 06/01/25 22:12 Last Infusion: 06/02/25 01:26 Dose: Infused Sodium Chloride (Ns 0.45%) 1,000 mls @ 125 mls/hr IV .Q8H ONE Stop: 06/02/25 05:10 Last Infusion: 06/02/25 05:15 Dose: 0 mls/hr Piperacillin/Tazobactam/Dextrose (Zosyn) 3.375 gm in 50 mls @ 100 mls/hr IV Q6HR ONE; Protocol Stop: 06/01/25 06:29 Piperacillin/Tazobactam/Dextrose (Zosyn) 3.375 gm in 50 mls @ 100 mls/hr IV X1 ONE; Protocol Stop: 06/01/25 21:44 Last Infusion: 06/01/25 23:39 Dose: Infused Potassium Chloride (Kcl Ivpb) 10 meq in 100 mls @ 100 mls/hr IV Q1H [facility] Stop: 06/02/25 11:09 Last Admin: 06/02/25 11:44 Dose: 75 mls/hr Lactated Ringer's (Lactated Ringers) 1,000 mls @ 999 mls/hr IV .Q1H1M ONE Stop: 06/02/25 09:29 Last Admin: 06/02/25 08:40 Dose: 999 mls/hr Lactated Ringer's (Lactated Ringers) 1,000 mls @ 999 mls/hr IV .Q1H1M ONE Stop: 06/02/25 11:24 Last Admin: 06/02/25 10:49 Dose: 999 mls/hr Non-Formulary Medication (Biotin) 1 mg PO QDAY [facility] Stop: 07/03/25 08:59 Assessment & Plan Plan Patient is a 80 year old female with PMH of new onset dementia, hypertension, HLD who presented with progressive confusion over the past month, admitted for acute encephalopathy and sepsis rule out, unclear infection source at this time. #Acute encephalopathy, likely metabolic #Sepsis rule out - Presented for confusion for the past day. Last known normal last night (conversational but confused), however daughter also notes that she has become progressively confused for the past month, which she attributes to her dementia. Also reports increasing fatigue and persistent nonproductive cough. AOx1 at baseline but previously independent with ADLs. - Home medication includes ASA 81, unknown history of stroke/TIA - BP mildly elevated at 143/86, other vitals stable, afebrile - WBC elevated at 20,000. Hgb 17.2. CMP unremarkable except for total bili 2.3. Lactic acid and LDH elevated, procal negative, ammonia <10. - EKG showed normal sinus rhythm with occasional PVCs, no ST abnormalities - UA negative for UTI but shows ketones and bilirubin - CT head negative for acute infarct - CT CAP showed moderate vascular congestion but negative for lobar PNA, appendicitis, diverticulitis - S/p LR bolus x2, CFX x1 in ED - Suspect metabolic secondary to lactic acidosis, possible sepsis but no clear source of infection at this time. Plan: - Consider MRI if high suspicion for stroke - Started on Zosyn (06/02 - Follow up blood cultures #Lactic acidosis, type A versus type B #Anion gap metabolic acidosis - Lactic 4.3 on admission - Anion gap 17, bicarb 24.9 - Suspect secondary to sepsis given elevated WBC and history of flu like symptoms Plan: - S/p LR x2 bolus - NS 125 ml/hr maintenance - Trend lactic q6hr - On abx as above #Hypovolemic hypernatremia - Likely secondary to dehydration - Na 148 - Patient has been increasingly forgetful per daughter, likely decreased PO intake - Appears hypovolemic on exam Plan: - S/p LR bolus x2 - Follow up AM renal panel #Hx of dementia - Has been having memory issues for the past 2 months per daughter. Appears to have worsening mentation over the past month - Officially diagnosed in PCP office in April per daughter, MMSE Plan: - Continue memantine 10 mg nightly - Will likely need SNF placement #HTN - Continue losartan 100 mg daily #HLD - Continue atorvastatin 40 mg nightly #Scattered colonic diverticulosis #Severe osteopenia #Diffuse thoracic lumbar degenerative disease - Incidental findings on CT CAP - No active treatment at this time - Outpatient follow up Health Maintenance Disposition: telemetry DVT prophylaxis: heparin SC GI prophylaxis: none Diet: cardiac CODE STATUS: FULL Patient plan of care was discussed with the attending physician, Dr. Tony. Hallie Ocampo DO, PGY-1 Attending Provider Attestation/Addendum Patient currently seen and examined with resident physician Dr. Ocampo. Note reviewed, agree with findings and recommendations. Patient currently seen in telemetry. Confused. Continue with fluids. Cultures ordered CT brain negative
[2025-06-01 22:25] LABS: Ammonia < 10 uMol/L (11-32)
[2025-06-01] MEDS: PIPER/TAZO 3.375 GM PREMIX 3.375 GM/50 ML BAG IV (22:51)
[2025-06-01 23:29] VITALS: BP 172/86; PULSE 93; RESP 18; TEMP 36.9; O2SAT 100
[2025-06-02] VITALS (8 sets, daily range): BP systolic 116–180; BP diastolic 75–91; PULSE 65–105; RESP 18–97; TEMP 36.1–36.9; O2SAT 94–100; BMI 27.4
[2025-06-02] MEDS: SODIUM CHLORIDE 0.45 % 1,000 ML 125 ML IV (00:07)
[2025-06-02 06:06] LABS: Lactate (Lactic Acid) 2.4 mMol/L (0.4-2.0)
[2025-06-02 06:18] LABS: Basophils # (Auto) 0.0 Thou/mm3 (0.0-0.2); Basophils % (Auto) 0 % (0-2.5); Eosinophils # (Auto) 0.0 Thou/mm3 (0.0-0.5); Eosinophils % (Auto) 0 % (0-10); Hematocrit 44.1 % (36.0-46.0); Hemoglobin 15.3 g/dL (12.0-16.0); Immature Granulocytes Auto 0.20 Thou/mm3 (0.00-0.00); Lymphocytes # (Auto) 2.3 Thou/mm3 (1.0-4.8); Lymphocytes % (Auto) 14 % (10-50); Mean Corpuscular HGB Conc 34.7 g/dl (31.0-37.0); Mean Corpuscular Hemoglobin 30.9 pg (25.0-35.0); Mean Corpuscular Volume 89 fL (80-100); Monocytes # (Auto) 1.0 Thou/mm3 (0.0-0.8); Monocytes % (Auto) 6 % (0-12); Neutrophils # (Auto) 12.5 Thou/mm3 (1.8-7.7); Neutrophils % (Auto) 78 % (37-80); Nucleated Red Blood Cell # 0.04 Thou/mm3 (0.00-0.00); Nucleated Red Blood Cell % 0 /100 WBC (0); Platelet Count 193 Thou/mm3 (140-440); RDW Standard Deviation 50.4 fL (36.4-46.3); Red Blood Count 4.95 Miln/mm3 (4.00-5.20); White Blood Count 16.0 Thou/mm3 (3.6-11.0)
[2025-06-02 06:59] LABS: Alanine Aminotransferase < 7 U/L (10-49); Albumin, Serum 3.6 gm/dL (3.4-4.8); Albumin/Globulin Ratio 1.3 (1.2-2.2); Alkaline Phosphatase 88 U/L (46-116); Anion Gap 14 (7-16); Aspartate Amino Transferase 21 U/L (0-34); BUN/Creatinine Ratio 27 Ratio (12-20); Bilirubin,Total 1.4 mg/dL (0.3-1.2); Blood Urea Nitrogen 16 mg/dL (9-23); Calcium 9.0 mg/dL (8.3-10.6); Calcium (Corrected) 9.3 mg/dL (8.5-10.1); Carbon Dioxide 23.9 mMol/L (20.0-31.0); Chloride 106 mMol/L (98-107); Creatinine (Component) 0.6 mg/dL (0.6-1.3); Estimated Creatinine Clearance 81.0 mL/min (>60); Globulin 2.7 gm/dL (2.3-3.5); Glucose 105 mg/dL (74-106); Osmolality,Calculated 288 (275-295); Sodium 144 mMol/L (136-145); Total Protein 6.3 gm/dL (5.7-8.2); eGFR > 60 See Note
[2025-06-02 07:02] LABS: Potassium 2.7 mMol/L (3.4-5.1)
[2025-06-02] MEDS: POTASSIUM CHL 10 mEq IVPB 10 MEQ/100 ML BAG 100 MEQ IV ×2 (07:37→08:39)
--- NOTE | 2025-06-02 08:30 | XR_ITS ---
Examination: Abdomen sonogram, Limited Date and time of exam: June 02, 2025, 0930 hours INDICATIONS: Elevated total bilirubin on laboratory examination today Technique: Real-time barbosa scale transabdominal sonographic images of the upper abdomen obtained. Findings: Absent gallbladder Normal common bile duct 0.3 cm Pancreatic head 3.4 cm Liver 12.8 cm lobular contour no focal liver lesions Normal hepatopetal portal venous flow Patent IVC IMPRESSION: Normal common bile duct Liver normal size lobular contour consider primary hepatocellular disease
[2025-06-02] MEDS: RINGERS LACTATED 1000 ML 1,000 ML 999 ML IV ×2 (08:40→10:49)
--- NOTE | 2025-06-02 08:45 | PD.RESHP ---
Documentation for date of: 06/02/25 [facility] History of Present Illness History of present illness: Patient is a 80 year old female with PMH of new onset dementia, hypertension, HLD who presented with progressive confusion over the past month. History was obtained from patient's daughter Edilma due to patient's altered mental status. Patient has had ongoing memory issues for the past 2 months, AOx1 for the past month. Also had intermittent flulike symptoms for the past month including nonproductive cough, fatigue, and a 2 day episode of n/v and diarrhea (in mid April), all of which has progressively made her weaker and less active per daughter. Previously independent with ADLs. Daughter suspects patient has not been taking her medications for the past few weeks and her house has become more unkempt over the past month. Patient lives at home alone, daughter lives in [place] and visits every weekend. Noted to be slower to respond and more tired for the past 2 days. Daughter tried to call her yesterday around noon, was not responding. Law enforcement was called due to concern, patient was found naked in recliner, altered. Upon ED arrival, GCS 14. BP 143/86, all other vitals stable. WBC 20.7, hemoglobin 17.2. Sodium 148. Anion gap 17, bicarb 24.9. BUN 24, creatinine 1.0 (baseline 0.7-0.9). Glucose 134. Lactic 4.3, LDH 350, procal negative. Calcium 9.9, phosphorus 1.8, Mg 2.1. Total bili 2.3 but liver enzymes and alk phos within normal limits. Ammonia <10. Troponin negative, BNP WNL. EKG showed sinus rhythm with occasional PVCs, no ST abnormalities noted UA showed 1+ ketones and 1+ bilirubin, negative for UTI. Head CT negative for acute infarct. CT CAP showed cirrhosis but otherwise unremarkable. Given LR bolus x2, CFX x1 Patient admitted for acute encephalopathy and sepsis rule out, unclear infection source at this time. Past Medical History: as above Family History: noncontributory Surgical History: bilateral knee arthroscopy, bilateral heel bone spur surgery Social History: Denies history of smoking, denies current alcohol use, denies recreational drug use Current Medications: ASA 81 daily, atorvastatin 40 nightly, biotin 1 mg daily, vit D3, calcium 600 mg daily, cyclobenzaprine 5 mg prn, losartan 100 mg daily, meclizine prn, memantine 10 mg nightly, montelukast 10 mg nightly, vit B12 folic acid daily Allergies: Latex (rash) 06/02/25: Patient seen and assessed on telemetry. AOx1, at baseline. Following commands, able to respond to simple questions appropriately. Complaining of abdominal pain, ordered gallbladder US. Denies chest pain and shortness of breath. Appears hypovolemic, UOP 500 cc overnight, will give another LR bolus x2. BP 144/84, restart home losartan. WBC downtrending, started on Zosyn overnight. Potassium 2.7, repleted. Total bili 1.4 (from 2.3). BHB mildly elevated, possible starvation ketosis. Anion gap closing, lactic acid improving, will continue to monitor. Exam Vital Signs Temp Pulse Resp BP Pulse Ox O2 Del Method O2 Flow Rate 97.5 F 70 20 142/84 H 94 L Nasal Cannula 2 06/02/25 08:00 06/02/25 08:00 06/02/25 08:00 06/02/25 08:00 06/02/25 08:00 06/02/25 08:00 06/02/25 08:00 Narrative Exam Physical Exam General: Awake and in no acute distress. Pleasant elderly lady, confused at baseline. Able to follow commands, answers simple questions appropriately. HEENT: Normocephalic, atraumatic, mucous membranes dry. Redness in eyes, dry. Heart: Regular rate and rhythm, normal S1 and S2, no murmurs appreciated. Lungs: Clear to auscultation with no wheezing or crackles. Abdomen: Soft, nondistended, nontender, positive bowel sounds. No guarding or rebound tenderness. Neurologic: Alert and oriented x1 (at baseline), no gross neurological deficit, and patient able to move all 4 extremities, strength intact. Extremities: No edema. Skin: No rash or ecchymoses. Results: Labs 06/02/25 05:40 06/02/25 05:40 Labs: Short CBC 06/01/25 06/02/25 Range/Units 16:20 05:40 WBC 20.7 H 16.0 H (3.6-11.0) Thou/mm3 Hgb 17.2 H 15.3 (12.0-16.0) g/dL Hct 50.9 H 44.1 (36.0-46.0) % Plt Count 220 193 (140-440) Thou/mm3 BMP 06/01/25 06/02/25 16:20 05:40 Sodium 148 H 144 Potassium 3.4 2.7 L* D Chloride 106 106 Carbon Dioxide 24.9 23.9 BUN 24 H 16 Creatinine 1.0 0.6 Glucose 134 H 105 Calcium 9.9 9.0 Cardiac Enzymes 06/01/25 Range/Units 16:20 Troponin I < 0.020 (0.0-0.045) ng/mL Liver Function 06/01/25 06/02/25 Range/Units 16:20 05:40 Total Bilirubin 2.3 H 1.4 H D (0.3-1.2) mg/dL AST 24 21 (0-34) U/L ALT 9 L < 7 L (10-49) U/L Alkaline Phosphatase 100 88 (46-116) U/L Albumin 4.3 3.6 D (3.4-4.8) gm/dL Urine 06/01/25 Range/Units 17:50 Urine Color Yellow (Lt Yel-Yel) Urine Clarity Clear (Clear/Hazy) Urine pH 6.0 (5.0-7.0) Ur Specific [place] 1.029 (1.001-1.035) Urine Protein Trace (Neg - Trace) Urine Glucose (UA) Negative (Negative) Quality Measures Quality Measures none Medications Home Medications and Allergies Home Medications ?Medication ?Instructions ?Recorded ?Confirmed ?Type losartan 100 mg tablet 100 mg PO QDAY 02/19/19 06/02/25 History ascorbic acid (vitamin C) 500 mg 500 mg PO QDAY 11/19/23 06/02/25 History tablet (Vitamin C) aspirin 81 mg tablet,delayed 81 mg PO QDAY 11/19/23 06/02/25 History release atorvastatin 10 mg tablet 10 mg PO HS 11/19/23 06/02/25 History biotin 1 mg capsule 1 mg PO QDAY 11/19/23 06/02/25 History calcium 600 mg capsule 600 mg PO DAILY 11/19/23 06/02/25 History cholecalciferol (vitamin D3) 25 25 mcg PO QDAY 11/19/23 06/02/25 History mcg (1,000 unit) chewable tablet (Vitamin D3) cyclobenzaprine 5 mg tablet 5 mg PO HS PRN Spasms 11/19/23 06/02/25 History meclizine 12.5 mg tablet 12.5 mg PO TID PRN Dizziness 11/19/23 06/02/25 History montelukast 10 mg tablet 10 mg PO QPM 11/19/23 06/02/25 History (Singulair) vitamin B12 0.5 mg-folic acid 1 mg 1 tab PO QDAY 11/19/23 06/02/25 History tablet atorvastatin 40 mg tablet 40 mg PO HS 06/02/25 06/02/25 History ketoconazole 2 % topical cream 1 applic topical BID 06/02/25 06/02/25 History memantine 10 mg tablet 10 mg PO HS 06/02/25 06/02/25 History Allergies Allergy/AdvReac Type Severity Reaction Status Date / Time latex Allergy Severe RASH Verified 11/20/23 12:57 Visit Medications Potassium Chloride (Kcl Ivpb) 10 meq in 100 mls @ 100 mls/hr IV Q1H [facility] Stop: 06/02/25 11:09 Last Admin: 06/02/25 08:39 Dose: 100 mls/hr Lactated Ringer's (Lactated Ringers) 1,000 mls @ 999 mls/hr IV .Q1H1M ONE Stop: 06/02/25 09:29 Last Admin: 06/02/25 08:40 Dose: 999 mls/hr Discontinued Medications Gentamicin Sulfate (Gentamicin Op [place] 0.3% 5 Ml Btl) 0 drop BOTH EYES X1 ONE Stop: 06/02/25 08:30 Ceftriaxone Sodium/Dextrose (Rocephin/D5w 1gm Iv Premix) 1 gm in 50 mls @ 100 mls/hr IV X1 ONE Stop: 06/01/25 16:46 Last Infusion: 06/01/25 19:32 Dose: Infused Lactated Ringer's (Lactated Ringers) 1,000 mls @ 999 mls/hr IV .Q1H1M ONE Stop: 06/01/25 17:18 Last Infusion: 06/01/25 20:23 Dose: Infused Lactated Ringer's (Lactated Ringers) 1,000 mls @ 999 mls/hr IV .Q1H1M ONE Stop: 06/01/25 22:12 Last Infusion: 06/02/25 01:26 Dose: Infused Sodium Chloride (Ns 0.45%) 1,000 mls @ 125 mls/hr IV .Q8H ONE Stop: 06/02/25 05:10 Last Infusion: 06/02/25 05:15 Dose: 0 mls/hr Piperacillin/Tazobactam/Dextrose (Zosyn) 3.375 gm in 50 mls @ 100 mls/hr IV Q6HR ONE; Protocol Stop: 06/01/25 06:29 Piperacillin/Tazobactam/Dextrose (Zosyn) 3.375 gm in 50 mls @ 100 mls/hr IV X1 ONE; Protocol Stop: 06/01/25 21:44 Last Infusion: 06/01/25 23:39 Dose: Infused Assessment & Plan Plan Patient is a 80 year old female with PMH of new onset dementia, hypertension, HLD who presented with progressive confusion over the past month, admitted for acute encephalopathy and sepsis rule out, unclear source at this time. #Acute encephalopathy #Concern for sepsis - Presented with worsening #Hx dementia - Possible vascular given progression? Plan: - Continue memantine 10 mg nightly #HTN - Continue losartan 100 mg daily #HLD - Continue atorvastatin 40 mg nightly Health Maintenance Disposition: telemetry DVT prophylaxis: SCDs GI prophylaxis: none Diet: cardiac CODE STATUS: FULL Patient plan of care was discussed with the attending physician, Dr. Tony. Hallie Ocampo DO, PGY-1
[2025-06-02 09:05] LABS: Reflex Lactate? Y
[2025-06-02 09:34] LABS: Lactic Acid, 3 HR 2.3 mMol/L (0.4-2.0)
[2025-06-02 09:48] LABS: Beta Hydroxybutyrate 0.7 mmol/L (<0.6)
[2025-06-02 10:07] LABS: Magnesium 1.9 mg/dL (1.6-2.6); Phosphorous 2.1 mg/dL (2.4-5.1)
[2025-06-02] MEDS: POTASSIUM CHL 10 mEq IVPB 10 MEQ/100 ML BAG 75 MEQ IV ×2 (10:07→11:44)
[2025-06-02] MEDS: GENTAMICIN OP SOL 0.3% 5 ML BTL BOTH EYES (10:50)
[2025-06-02] MEDS: VIT B12/Vit C/FA (Nephrovite) TABLET 1 TAB PO (11:46)
[2025-06-02] MEDS: ASCORBIC ACID 250 MG TABLET 500 MG PO (11:46)
[2025-06-02] MEDS: LOSARTAN POTASSIUM 25 MG TABLET 100 MG PO (11:49)
--- NOTE | 2025-06-02 14:12 | PD.RESPRO ---
Documentation for date of: 06/02/25 Subjective Subjective Interval history: Patient is a 80 year old female with PMH of new onset dementia, hypertension, HLD who presented with progressive confusion over the past month. History was obtained from patient's daughter Edilma due to patient's altered mental status. Patient has had ongoing memory issues for the past 2 months, AOx1 for the past month. Also had intermittent flulike symptoms for the past month including nonproductive cough, fatigue, and a 2 day episode of n/v and diarrhea (in mid April), all of which has progressively made her weaker and less active per daughter. Previously independent with ADLs. Daughter suspects patient has not been taking her medications for the past few weeks and her house has become more unkempt over the past month. Patient lives at home alone, daughter lives in [place] and visits every weekend. Noted to be slower to respond and more tired for the past 2 days. Daughter tried to call her yesterday around noon, was not responding. Law enforcement was called due to concern, patient was found naked in recliner, altered. Upon ED arrival, GCS 14. BP 143/86, all other vitals stable. WBC 20.7, hemoglobin 17.2. Sodium 148. Anion gap 17, bicarb 24.9. BUN 24, creatinine 1.0 (baseline 0.7-0.9). Glucose 134. Lactic 4.3, LDH 350, procal negative. Calcium 9.9, phosphorus 1.8, Mg 2.1. Total bili 2.3 but liver enzymes and alk phos within normal limits. Ammonia <10. Troponin negative, BNP WNL. EKG showed sinus rhythm with occasional PVCs, no ST abnormalities noted UA showed 1+ ketones and 1+ bilirubin, negative for UTI. Head CT negative for acute infarct. CT CAP showed cirrhosis but otherwise unremarkable. Given LR bolus x2, CFX x1 Patient admitted for acute encephalopathy and sepsis rule out, unclear infection source at this time. Past Medical History: as above Family History: noncontributory Surgical History: bilateral knee arthroscopy, bilateral heel bone spur surgery Social History: Denies history of smoking, denies current alcohol use, denies recreational drug use Current Medications: ASA 81 daily, atorvastatin 40 nightly, biotin 1 mg daily, vit D3, calcium 600 mg daily, cyclobenzaprine 5 mg prn, losartan 100 mg daily, meclizine prn, memantine 10 mg nightly, montelukast 10 mg nightly, vit B12 folic acid daily Allergies: Latex (rash) 06/02/25: Patient seen and assessed on telemetry. AOx1, at baseline. Following commands, able to respond to simple questions appropriately. Complaining of abdominal pain, ordered gallbladder US. Denies chest pain and shortness of breath. Appears hypovolemic, UOP 500 cc overnight, will give another LR bolus x2. BP 144/84, restart home losartan. WBC downtrending, started on Zosyn overnight. Potassium 2.7, repleted. Total bili 1.4 (from 2.3). BHB mildly elevated, possible starvation ketosis. Anion gap closing, lactic acid improving, will continue to monitor. Spoke to patient's daughter Edilma over phone, obtained more history and updated her on plan. Would like to get in touch with social work administrator for SNF placement. Exam Vital Signs Temp Pulse Resp BP Pulse Ox O2 Del Method O2 Flow Rate 98.5 F 105 H 20 180/75 H 100 High Flow Nasal Cannula 40 06/02/25 12:00 06/02/25 12:00 06/02/25 12:00 06/02/25 12:00 06/02/25 12:00 06/02/25 12:00 06/02/25 12:00 FiO2 90 06/02/25 12:00 Narrative Exam Physical Exam General: Awake and in no acute distressed. Elderly lady, pleasantly confused. Following commands appropriately, able to answer simple questions. HEENT: Normocephalic, atraumatic, mucous membranes dry. Conjunctivitis. Heart: Regular rate and rhythm, normal S1 and S2, no murmurs appreciated appreciated. Lungs: Clear to auscultation with no wheezing or crackles. Abdomen: Soft, nondistended, positive bowel sounds. Mildly tender in lower abdomen. No guarding or rebound tenderness. Neurologic: AOx1, no gross neurological deficit, and patient able to move all 4 extremities. Strength intact. Extremities: No edema. Skin: No rash or ecchymoses. Objective Labs 06/03/25 05:20 06/03/25 16:42 Labs: Laboratory Results - last 24 hr 06/01/25 06/01/25 06/01/25 16:20 17:50 20:15 WBC 20.7 H RBC 5.63 H Hgb 17.2 H Hct 50.9 H MCV 90 MCH 30.6 MCHC 33.8 RDW Std Deviation 51.3 H Plt Count 220 Neut % (Auto) 88 H Lymph % (Auto) 6 L [place] % (Auto) 5 Eos % (Auto) 1 Baso % (Auto) 0 Neut # (Auto) 18.2 H Lymph # (Auto) 1.2 [place] # (Auto) 1.0 H Eos # (Auto) 0.1 Baso # (Auto) 0.1 Immature Gran # (Auto) 0.19 H Absolute Nucleated RBC 0.07 H Immature Gran % 1 H Nucleated RBC % 0 PT 13.5 H INR 1.3 APTT 28.8 Sodium 148 H Potassium 3.4 Chloride 106 Carbon Dioxide 24.9 Anion Gap 17 H BUN 24 H Creatinine 1.0 Estim Creat Clear Calc Not Performed. eGFR 58 L BUN/Creatinine Ratio 24 H Glucose 134 H Calculated Osmolality 300 H Lactic Acid 4.3 H* 3.1 H Calcium 9.9 Corrected Calcium 9.9 Phosphorus 1.8 L Magnesium 2.1 Total Bilirubin 2.3 H AST 24 ALT 9 L Alkaline Phosphatase 100 Ammonia Lactate Dehydrogenase 350 H Troponin I < 0.020 B-Natriuretic Peptide 52 Total Protein 7.5 Albumin 4.3 Globulin 3.2 Albumin/Globulin Ratio 1.3 Lipase 43 Beta-Hydroxybutyrate/Acetoacetate Procalcitonin 0.23 Ur Collection Type Clean Catch Urine Color Yellow Urine Clarity Clear Urine pH 6.0 Ur Specific [place] 1.029 Urine Protein Trace Urine Glucose (UA) Negative Urine Ketones 1+ A Urine Blood Negative Urine Nitrite Negative Urine Bilirubin 1+ A Urine Urobilinogen (Auto) 4.0 Ur Leukocyte Esterase Negative Urine RBC 1 Urine WBC 3 Ur Squamous Epith Cells < 1 Urine Bacteria None Ur Culture Indicated? Not Indicated 06/01/25 06/02/25 06/02/25 21:59 05:40 09:00 WBC 16.0 H RBC 4.95 Hgb 15.3 Hct 44.1 MCV 89 MCH 30.9 MCHC 34.7 RDW Std Deviation 50.4 H Plt Count 193 Neut % (Auto) 78 Lymph % (Auto) 14 [place] % (Auto) 6 Eos % (Auto) 0 Baso % (Auto) 0 Neut # (Auto) 12.5 H Lymph # (Auto) 2.3 [place] # (Auto) 1.0 H Eos # (Auto) 0.0 Baso # (Auto) 0.0 Immature Gran # (Auto) 0.20 H Absolute Nucleated RBC 0.04 H Immature Gran % 1 H Nucleated RBC % 0 PT INR APTT Sodium 144 Potassium 2.7 L* D Chloride 106 Carbon Dioxide 23.9 Anion Gap 14 BUN 16 Creatinine 0.6 Estim Creat Clear Calc 81.0 eGFR > 60 BUN/Creatinine Ratio 27 H Glucose 105 Calculated Osmolality 288 Lactic Acid 2.4 H 2.3 H Calcium 9.0 Corrected Calcium 9.3 Phosphorus 2.1 L Magnesium 1.9 Total Bilirubin 1.4 H D AST 21 ALT < 7 L Alkaline Phosphatase 88 Ammonia < 10 L Lactate Dehydrogenase Troponin I B-Natriuretic Peptide Total Protein 6.3 Albumin 3.6 D Globulin 2.7 Albumin/Globulin Ratio 1.3 Lipase Beta-Hydroxybutyrate/Acetoacetate 0.7 H Procalcitonin Ur Collection Type Urine Color Urine Clarity Urine pH Ur Specific [place] Urine Protein Urine Glucose (UA) Urine Ketones Urine Blood Urine Nitrite Urine Bilirubin Urine Urobilinogen (Auto) Ur Leukocyte Esterase Urine RBC Urine WBC Ur Squamous Epith Cells Urine Bacteria Ur Culture Indicated? Quality Measures Quality Measures none Advance care planning discussed with:: child Assessment & Plan Assessment Current Active Medications: Generic Name Dose Route Start Last Admin Trade Name Freq PRN Reason Stop Dose Admin Ascorbic Acid 500 mg 06/02/25 11:45 06/02/25 11:46 Ascorbic Acid 250 Mg Tablet PO 07/02/25 11:44 500 mg QDAY NOAM Administration Atorvastatin Calcium 40 mg 06/02/25 21:00 Atorvastatin Calcium 20 Mg Tablet PO 07/02/25 20:59 HS NOAM Calcium Carbonate 600 mg 06/03/25 09:00 Calcium Carbonate 600 Mg Tablet PO 07/03/25 08:59 DAILY NOAM Cyclobenzaprine HCl 5 mg 06/02/25 11:35 Cyclobenzaprine 5 Mg Tablet PO 07/02/25 11:34 HS PRN Spasms Losartan Potassium 100 mg 06/02/25 11:45 06/02/25 11:49 Losartan Potassium 25 Mg Tablet PO 07/02/25 11:44 100 mg QDAY NOAM Administration Meclizine HCl 12.5 mg 06/02/25 11:35 Meclizine Hcl 25 Mg Tablet PO TID PRN Dizziness Memantine 10 mg 06/02/25 21:00 Memantine Hcl 5 Mg Tablet PO 07/02/25 20:59 HS NOAM Montelukast Sodium 10 mg 06/02/25 21:00 Montelukast Sodium 10 Mg Tablet PO 07/02/25 20:59 QPM NOAM Vitamin B Complex/Vit C/Folic Acid 1 tab 06/02/25 11:45 06/02/25 11:46 Vit B12/Vit C/Fa (Nephrovite) Tablet PO 07/02/25 11:44 1 tab QDAY NOAM Administration Vitamin D 1,000 iu 06/03/25 09:00 Cholecalciferol (Vitamin D3) 1,000 Iu Tablet PO 07/03/25 08:59 QDAY NOAM Plan Patient is a 80 year old female with PMH of new onset dementia, hypertension, HLD who presented with progressive confusion over the past month, admitted to telemetry for acute encephalopathy and sepsis rule out, unclear infection source at this time. #Acute encephalopathy (resolved) #Sepsis rule out - Presented on 06/01 for worsened altered mental status. Last known normal last night, however daughter also notes that she has become progressively confused for the past month, which she attributes to her dementia. Also reports increasing fatigue and persistent nonproductive cough. AOx1 at baseline but previously independent with ADLs. - Home medication includes ASA 81, unknown history of stroke/TIA - BP mildly elevated at 143/86, other vitals stable, afebrile - WBC 20.7 -> 16.0 - CMP unremarkable except for total bili 2.3. Liver enzymes and alk phos WNL. - Lactic acid and LDH elevated, procal negative, ammonia <10. - EKG showed normal sinus rhythm with occasional PVCs, no ST abnormalities - UA negative for UTI but shows ketones and bilirubin - CT head negative for acute infarct - CT CAP showed moderate vascular congestion but negative for lobar PNA, appendicitis, diverticulitis - S/p LR bolus x2, CFX x1 in ED - Suspect metabolic secondary to lactic acidosis, possible sepsis but no clear source of infection at this time. - On exam today, patient has returned to mental baseline, following commands and answering simple questions appropriately. Able to recognize familiar face. Moving all extremities, no deficits noted, low suspicion for stroke at this time. Plan: - Started on Zosyn (06/01- - Follow up gallbladder US as not clearly visualized on CT CAP - Follow up influenza A&B - Follow up blood cultures - Resume ASA 81 mg daily #Lactic acidosis, type A versus type B (improving) #Anion gap metabolic acidosis (improving) - Lactic 4.3 on admission --> 2.4 - Anion gap 17, bicarb 24.9 --> 14 - S/p LR x2 bolus and NS 125 ml/hr maintenance - Suspect secondary to sepsis given elevated WBC and history of flu like symptoms Plan: - LR bolus 1L x2 - Trend lactic q6hr - On abx as above #Hypokalemia - Potassium 2.7 (06/02) Plan: - IV KCl 40 mEq x1 - Follow up repeat renal panel at 3 PM - Replete as needed - Keep K <4 #Hypovolemic hypernatremia (resolved) - Likely secondary to dehydration - Na 148 -> 144 - Patient has been increasingly forgetful per daughter, likely decreased PO intake - Appears hypovolemic on exam Plan: - S/p LR bolus x2 - Follow up AM renal panel #Hx of dementia - Has been having memory issues for the past 2 months per daughter. Appears to have worsening mentation over the past month - Officially diagnosed in PCP office in April per daughter, MMSE Plan: - Continue memantine 10 mg nightly - ASA 81 mg daily - Atorvastatin 40 mg nightly - Consider MRI or outpatient work up for dementia work up - financial services assistant consulted - PT consulted - Will likely need SNF placement #HTN - Continue losartan 100 mg daily #HLD - Continue atorvastatin 40 mg nightly #Conjunctivitis - Appears to have conjunctivitis on exam, some crusty discharge around eyes - Possibly infection versus dry eyes iso hypovolemia Plan: - Gentamicin eye drops #Scattered colonic diverticulosis #Severe osteopenia #Diffuse thoracic lumbar degenerative disease - Incidental findings on CT CAP - No active treatment at this time - Outpatient follow up Health Maintenance Disposition: telemetry DVT prophylaxis: heparin SC GI prophylaxis: none Diet: cardiac CODE STATUS: FULL Patient plan of care was discussed with the attending physician, Dr. Tony. Hallie Ocampo DO, PGY-1 Attending Provider Attestation/Addendum Patient currently seen and examined with resident physician Dr. Ocampo. Note reviewed, agree with findings and recommendations. Patient currently seen in telemetry. Confused. Continue with fluids. So far cultures pending CT brain negative
[2025-06-02 15:55] LABS: Lactate (Lactic Acid) 1.4 mMol/L (0.4-2.0)
[2025-06-02 16:31] LABS: Albumin, Serum 2.9 gm/dL (3.4-4.8); Anion Gap 13 (7-16); BUN/Creatinine Ratio 24 Ratio (12-20); Blood Urea Nitrogen 12 mg/dL (9-23); Calcium 8.0 mg/dL (8.3-10.6); Calcium (Corrected) 8.9 mg/dL (8.5-10.1); Carbon Dioxide 24.2 mMol/L (20.0-31.0); Chloride 104 mMol/L (98-107); Creatinine (Component) 0.5 mg/dL (0.6-1.3); Estimated Creatinine Clearance 97.2 mL/min (>60); Glucose 90 mg/dL (74-106); Osmolality,Calculated 280 (275-295); Phosphorous 2.0 mg/dL (2.4-5.1); Potassium 3.1 mMol/L (3.4-5.1); Sodium 141 mMol/L (136-145); eGFR > 60 See Note
[2025-06-02 17:12] LABS: Influenza A Ag Negative; Influenza B Ag Negative
[2025-06-02] MEDS: MEMANTINE HCL 5 MG TABLET 10 MG PO (20:22)
[2025-06-02] MEDS: ATORVASTATIN CALCIUM 20 MG TABLET 40 MG PO (20:22)
[2025-06-02] MEDS: MONTELUKAST SODIUM 10 MG TABLET PO (20:22)
[2025-06-02] MEDS: HEPARIN SOD INJ 5000 UNIT/ML VIAL SC (20:22)
[2025-06-03] VITALS (10 sets, daily range): BP systolic 100–131; BP diastolic 62–96; PULSE 68–140; RESP 14–97; TEMP 36.1–36.4; O2SAT 90–97; BMI 13.0
[2025-06-03 06:27] LABS: Basophils # (Auto) 0.1 Thou/mm3 (0.0-0.2); Basophils % (Auto) 0 % (0-2.5); Eosinophils # (Auto) 0.2 Thou/mm3 (0.0-0.5); Eosinophils % (Auto) 1 % (0-10); Hematocrit 39.1 % (36.0-46.0); Hemoglobin 13.5 g/dL (12.0-16.0); Immature Granulocytes Auto 0.16 Thou/mm3 (0.00-0.00); Lymphocytes # (Auto) 2.7 Thou/mm3 (1.0-4.8); Lymphocytes % (Auto) 21 % (10-50); Mean Corpuscular HGB Conc 34.5 g/dl (31.0-37.0); Mean Corpuscular Hemoglobin 30.9 pg (25.0-35.0); Mean Corpuscular Volume 90 fL (80-100); Monocytes # (Auto) 1.0 Thou/mm3 (0.0-0.8); Monocytes % (Auto) 7 % (0-12); Neutrophils # (Auto) 8.9 Thou/mm3 (1.8-7.7); Neutrophils % (Auto) 69 % (37-80); Nucleated Red Blood Cell # 0.02 Thou/mm3 (0.00-0.00); Nucleated Red Blood Cell % 0 /100 WBC (0); Platelet Count 155 Thou/mm3 (140-440); RDW Standard Deviation 50.5 fL (36.4-46.3); Red Blood Count 4.37 Miln/mm3 (4.00-5.20); White Blood Count 12.9 Thou/mm3 (3.6-11.0)
[2025-06-03 08:49] LABS: Alanine Aminotransferase 8 U/L (10-49); Albumin, Serum 3.2 gm/dL (3.4-4.8); Albumin/Globulin Ratio 1.4 (1.2-2.2); Alkaline Phosphatase 76 U/L (46-116); Anion Gap 17 (7-16); Aspartate Amino Transferase 22 U/L (0-34); BUN/Creatinine Ratio 20 Ratio (12-20); Bilirubin,Total 1.3 mg/dL (0.3-1.2); Blood Urea Nitrogen 10 mg/dL (9-23); Calcium 8.5 mg/dL (8.3-10.6); Calcium (Corrected) 9.1 mg/dL (8.5-10.1); Carbon Dioxide 23.2 mMol/L (20.0-31.0); Chloride 102 mMol/L (98-107); Creatinine (Component) 0.5 mg/dL (0.6-1.3); Estimated Creatinine Clearance 101.3 mL/min (>60); Globulin 2.3 gm/dL (2.3-3.5); Glucose 71 mg/dL (74-106); Osmolality,Calculated 280 (275-295); Potassium 2.8 mMol/L (3.4-5.1); Sodium 142 mMol/L (136-145); Total Protein 5.5 gm/dL (5.7-8.2); eGFR > 60 See Note
[2025-06-03] MEDS: LOSARTAN POTASSIUM 25 MG TABLET 100 MG PO (09:09)
[2025-06-03] MEDS: CALCIUM CARBONATE 600 MG TABLET PO (09:09)
[2025-06-03] MEDS: HEPARIN SOD INJ 5000 UNIT/ML VIAL SC ×2 (09:15→20:22)
[2025-06-03] MEDS: ASCORBIC ACID 250 MG TABLET 500 MG PO (09:15)
[2025-06-03] MEDS: VIT B12/Vit C/FA (Nephrovite) TABLET 1 TAB PO (09:15)
[2025-06-03] MEDS: ASPIRIN EC 81 MG TABEC PO (09:15)
[2025-06-03] MEDS: CHOLECALCIFEROL (Vitamin D3) 1,000 IU TABLET 1000 IU PO (09:15)
--- NOTE | 2025-06-03 10:32 | PD.RESPRO ---
Documentation for date of: 06/03/25 Subjective Subjective Interval history: Patient is a 80 year old female with PMH of new onset dementia, hypertension, HLD who presented with progressive confusion over the past month. History was obtained from patient's daughter Edilma due to patient's altered mental status. Patient has had ongoing memory issues for the past 2 months, AOx1 for the past month. Also had intermittent flulike symptoms for the past month including nonproductive cough, fatigue, and a 2 day episode of n/v and diarrhea (in mid April), all of which has progressively made her weaker and less active per daughter. Previously independent with ADLs. Daughter suspects patient has not been taking her medications for the past few weeks and her house has become more unkempt over the past month. Patient lives at home alone, daughter lives in [place] and visits every weekend. Noted to be slower to respond and more tired for the past 2 days. Daughter tried to call her yesterday around noon, was not responding. Law enforcement was called due to concern, patient was found naked in recliner, altered. Upon ED arrival, GCS 14. BP 143/86, all other vitals stable. WBC 20.7, hemoglobin 17.2. Sodium 148. Anion gap 17, bicarb 24.9. BUN 24, creatinine 1.0 (baseline 0.7-0.9). Glucose 134. Lactic 4.3, LDH 350, procal negative. Calcium 9.9, phosphorus 1.8, Mg 2.1. Total bili 2.3 but liver enzymes and alk phos within normal limits. Ammonia <10. Troponin negative, BNP WNL. EKG showed sinus rhythm with occasional PVCs, no ST abnormalities noted UA showed 1+ ketones and 1+ bilirubin, negative for UTI. Head CT negative for acute infarct. CT CAP showed cirrhosis but otherwise unremarkable. Given LR bolus x2, CFX x1 Patient admitted for acute encephalopathy and sepsis rule out, unclear infection source at this time. Past Medical History: as above Family History: noncontributory Surgical History: bilateral knee arthroscopy, bilateral heel bone spur surgery Social History: Denies history of smoking, denies current alcohol use, denies recreational drug use Current Medications: ASA 81 daily, atorvastatin 40 nightly, biotin 1 mg daily, vit D3, calcium 600 mg daily, cyclobenzaprine 5 mg prn, losartan 100 mg daily, meclizine prn, memantine 10 mg nightly, montelukast 10 mg nightly, vit B12 folic acid daily Allergies: Latex (rash) 06/02/25: Patient seen and assessed on telemetry. AOx1, at baseline. Following commands, able to respond to simple questions appropriately. Complaining of abdominal pain, ordered gallbladder US. Denies chest pain and shortness of breath. Appears hypovolemic, UOP 500 cc overnight, will give another LR bolus x2. BP 144/84, restart home losartan. WBC downtrending, started on Zosyn overnight. Potassium 2.7, repleted. Total bili 1.4 (from 2.3). BHB mildly elevated, possible starvation ketosis. Anion gap closing, lactic acid improving, will continue to monitor. Spoke to patient's daughter Edilma over phone, obtained more history and updated her on plan. Would like to get in touch with social service coordinator for SNF placement. 06/03/25: Patient seen and assessed on telemetry. Conversational, back to baseline, AOx1. WBC 12.9. Potassium 2.8, repleted with 80 mEq orally. Lactic acidosis resolved. Bilirubin downtrending. Gall bladder US negative for obstruction or biliary dilation. Blood cultures negative for 24 hours. Continue Zosyn. Spoke with social, patient would like to be discharged to SNF. PT recommends SNF. Likely discharge tomorrow if blood cultures remain negative. Exam Vital Signs Temp Pulse Resp BP Pulse Ox O2 Del Method O2 Flow Rate 97.5 F 82 14 106/62 96 Nasal Cannula 2 06/03/25 08:00 06/03/25 09:09 06/03/25 08:00 06/03/25 09:09 06/03/25 08:00 06/03/25 08:00 06/03/25 08:00 FiO2 90 06/02/25 12:00 Narrative Exam Physical Exam General: Awake and in no acute distressed. Elderly lady, pleasantly confused. Conversational. At baseline. HEENT: Normocephalic, atraumatic, mucous membranes dry. Heart: Regular rate and rhythm, normal S1 and S2, no murmurs appreciated appreciated. Lungs: Clear to auscultation with no wheezing or crackles. Abdomen: Soft, nondistended, positive bowel sounds. No guarding or rebound tenderness. Neurologic: AOx1, no gross neurological deficit, and patient able to move all 4 extremities. Strength intact. Extremities: No edema. Skin: No rash or ecchymoses. Objective Labs 06/03/25 05:20 06/03/25 16:42 Labs: Laboratory Results - last 24 hr 06/02/25 06/02/25 06/03/25 15:40 16:10 05:20 WBC 12.9 H RBC 4.37 Hgb 13.5 Hct 39.1 MCV 90 MCH 30.9 MCHC 34.5 RDW Std Deviation 50.5 H Plt Count 155 D Neut % (Auto) 69 Lymph % (Auto) 21 [place] % (Auto) 7 Eos % (Auto) 1 Baso % (Auto) 0 Neut # (Auto) 8.9 H Lymph # (Auto) 2.7 [place] # (Auto) 1.0 H Eos # (Auto) 0.2 Baso # (Auto) 0.1 Immature Gran # (Auto) 0.16 H Absolute Nucleated RBC 0.02 H Immature Gran % 1 H Nucleated RBC % 0 Sodium 141 142 Potassium 3.1 L 2.8 L Chloride 104 102 Carbon Dioxide 24.2 23.2 Anion Gap 13 17 H BUN 12 10 Creatinine 0.5 L 0.5 L Estim Creat Clear Calc 97.2 101.3 eGFR > 60 > 60 BUN/Creatinine Ratio 24 H 20 Glucose 90 71 L Calculated Osmolality 280 280 Lactic Acid 1.4 Calcium 8.0 L 8.5 Corrected Calcium 8.9 9.1 Phosphorus 2.0 L Total Bilirubin 1.3 H AST 22 ALT 8 L Alkaline Phosphatase 76 Total Protein 5.5 L Albumin 2.9 L D 3.2 L Globulin 2.3 Albumin/Globulin Ratio 1.4 Influenza A (Rapid) Negative Influenza B (Rapid) Negative Quality Measures Quality Measures none Advance care planning discussed with:: patient Assessment & Plan Assessment Current Active Medications: Generic Name Dose Route Start Last Admin Trade Name Freq PRN Reason Stop Dose Admin Ascorbic Acid 500 mg 06/02/25 11:45 06/03/25 09:15 Ascorbic Acid 250 Mg Tablet PO 07/02/25 11:44 500 mg QDAY NOAM Administration Aspirin 81 mg 06/03/25 09:00 06/03/25 09:15 Aspirin Ec 81 Mg Tabec PO 07/03/25 08:59 81 mg QDAY NOAM Administration Atorvastatin Calcium 40 mg 06/02/25 21:00 06/02/25 20:22 Atorvastatin Calcium 20 Mg Tablet PO 07/02/25 20:59 40 mg HS NOAM Administration Calcium Carbonate 600 mg 06/03/25 09:00 06/03/25 09:09 Calcium Carbonate 600 Mg Tablet PO 07/03/25 08:59 600 mg DAILY NOAM Administration Cyclobenzaprine HCl 5 mg 06/02/25 11:35 Cyclobenzaprine 5 Mg Tablet PO 07/02/25 11:34 HS PRN Spasms Heparin Sodium (Porcine) 5,000 unit 06/02/25 21:00 06/03/25 09:15 Heparin Sod Inj 5000 Unit/Ml Vial SC 06/16/25 20:59 5,000 unit Q12HR NOAM Administration Losartan Potassium 100 mg 06/02/25 11:45 06/03/25 09:09 Losartan Potassium 25 Mg Tablet PO 07/02/25 11:44 100 mg QDAY NOAM Administration Meclizine HCl 12.5 mg 06/02/25 11:35 Meclizine Hcl 25 Mg Tablet PO TID PRN Dizziness Memantine 10 mg 06/02/25 21:00 06/02/25 20:22 Memantine Hcl 5 Mg Tablet PO 07/02/25 20:59 10 mg HS NOAM Administration Montelukast Sodium 10 mg 06/02/25 21:00 06/02/25 20:22 Montelukast Sodium 10 Mg Tablet PO 07/02/25 20:59 10 mg QPM NOAM Administration Vitamin B Complex/Vit C/Folic Acid 1 tab 06/02/25 11:45 06/03/25 09:15 Vit B12/Vit C/Fa (Nephrovite) Tablet PO 07/02/25 11:44 1 tab QDAY NOAM Administration Vitamin D 1,000 iu 06/03/25 09:00 06/03/25 09:15 Cholecalciferol (Vitamin D3) 1,000 Iu Tablet PO 07/03/25 08:59 1,000 iu QDAY NOAM Administration Plan Patient is a 80 year old female with PMH of new onset dementia, hypertension, HLD who presented with progressive confusion over the past month, admitted to telemetry for acute encephalopathy and sepsis rule out, unclear infection source at this time. #Acute encephalopathy (resolved) #Sepsis rule out - Presented on 06/01 for worsened altered mental status. Last known normal last night, however daughter also notes that she has become progressively confused for the past month, which she attributes to her dementia. Also reports increasing fatigue and persistent nonproductive cough. AOx1 at baseline but previously independent with ADLs. - Home medication includes ASA 81, unknown history of stroke/TIA - BP mildly elevated at 143/86, other vitals stable, afebrile - WBC 20.7 -> 16.0 - CMP unremarkable except for total bili 2.3. Liver enzymes and alk phos WNL. - Lactic acid and LDH elevated, procal negative, ammonia <10. - EKG showed normal sinus rhythm with occasional PVCs, no ST abnormalities - UA negative for UTI but shows ketones and bilirubin - CT head negative for acute infarct - CT CAP showed moderate vascular congestion but negative for lobar PNA, appendicitis, diverticulitis - Gallbladder US negative - Influenza A&B negative - Blood cultures negative after 24 hours - S/p total 6L fluids - Suspect metabolic secondary to lactic acidosis, possible sepsis but no clear source of infection at this time. - On exam today, patient has returned to mental baseline, following commands and answering simple questions appropriately. Able to recognize familiar face. Moving all extremities, no deficits noted, low suspicion for stroke at this time. Plan: - Zosyn (06/01- - Follow up blood cultures - ASA 81 mg daily #Lactic acidosis, likely type A (resolved) #Anion gap metabolic acidosis (improving) - Lactic 4.3 on admission --> 2.4 -> 1.4 - Anion gap 17, bicarb 24.9 --> 14 -> 17, likely worsened in setting of hypokalemia - S/p total 6L fluids Plan: - Abx as above - Follow up blood cultures #Hypokalemia - Potassium 2.7 (06/02) -> 3.1 -> 2.8 Plan: - Oral potassium 80 mEq total - Follow up repeat renal panel at 3 PM - Replete as needed - Keep K <4 #Hypovolemic hypernatremia (resolved) - Likely secondary to dehydration - Na 148 -> 144 - Patient has been increasingly forgetful per daughter, likely decreased PO intake - Appears hypovolemic on exam Plan: - S/p total 6L IV fluids - Follow up AM renal panel #Hx of dementia - Has been having memory issues for the past 2 months per daughter. Appears to have worsening mentation over the past month - Officially diagnosed in PCP office in April per daughter, MMSE Plan: - Continue memantine 10 mg nightly - ASA 81 mg daily - Atorvastatin 40 mg nightly - Consider MRI or outpatient work up for dementia work up - guest services director consulted - PT consulted - Pending SNF placement #HTN - Continue losartan 100 mg daily #HLD - Continue atorvastatin 40 mg nightly #Conjunctivitis - Appears to have conjunctivitis on exam, some crusty discharge around eyes - Possibly infection versus dry eyes iso hypovolemia Plan: - S/p gentamicin eye drops #Scattered colonic diverticulosis #Severe osteopenia #Diffuse thoracic lumbar degenerative disease - Incidental findings on CT CAP - No active treatment at this time - Outpatient follow up Health Maintenance Disposition: telemetry DVT prophylaxis: heparin SC GI prophylaxis: none Diet: cardiac CODE STATUS: FULL Patient plan of care was discussed with the attending physician, Dr. Tony. Hallie Ocampo DO, PGY-1 Attending Provider Attestation/Addendum Patient currently seen and examined with resident physician Dr. Ocampo. Note reviewed, agree with findings and recommendations. Patient currently seen in telemetry. Confused. Continue with fluids. So far cultures pending CT brain negative DC [place]. More alert and awake. Plan for discharge in 1 to 2 days if clinically stable. Patient wants to go to rehab.
--- NOTE | 2025-06-03 11:14 | PC.SS ---
Addendum entered by Lamar Navarro 06/03/25 16:26: Application Packaging Specialist (SW) Lamar received a phone call from bedside RN-Annie who reported that patient has been confused all day, and should not return home with home health, unless family is able to stay with her. SW will await to discuss discharge plan with patient's daughter, Edilma. Original Note: This is 80-year-old, , female who presented to the ED due to suffering from altered mental status. Patient appeared alert and oriented to self, place and situation. Patient was able to verify her address and phone number. Patient reported that she resides alone at home. Prior to admission, patient was independent with all ADLs, no DME use. Patient reported that recently, she has been unable to ambulate. Per [employer], patient was found naked on a couch with a GCS of 14. Patient reported that she feels weak and afraid to return home. Dr. Tony submitted a referral for PT. At this time, based on the evaluation, patient would like to attend SNF at [facility]. Patient assigned her daughter, Edilma, as her medical surrogate decision maker. Discharge plan to be determined when PT evaluates patient.
[2025-06-03] MEDS: PIPER/TAZO 3.375 GM PREMIX 3.375 GM/50 ML BAG IV ×2 (13:24→21:07)
--- NOTE | 2025-06-03 15:04 | PC.NURSE ---
Per the electronic device monitor, Pt's heart rate went up to the 130's and patient had a few PVCs. By the time the message was received patient was no loner havin PVCs and patient's HR was in the 80's. Called Dr. Ocampo and made aware. ordered labs to check patient's potassium level. Will continue to assess patient.
[2025-06-03 18:02] LABS: Albumin, Serum 3.4 gm/dL (3.4-4.8); Anion Gap 12 (7-16); BUN/Creatinine Ratio 18 Ratio (12-20); Blood Urea Nitrogen 11 mg/dL (9-23); Calcium 8.9 mg/dL (8.3-10.6); Calcium (Corrected) 9.4 mg/dL (8.5-10.1); Carbon Dioxide 27.5 mMol/L (20.0-31.0); Chloride 100 mMol/L (98-107); Creatinine (Component) 0.6 mg/dL (0.6-1.3); Estimated Creatinine Clearance 84.4 mL/min (>60); Glucose 91 mg/dL (74-106); Osmolality,Calculated 276 (275-295); Phosphorous 1.6 mg/dL (2.4-5.1); Potassium 3.8 mMol/L (3.4-5.1); Sodium 139 mMol/L (136-145); eGFR > 60 See Note
[2025-06-03] MEDS: MONTELUKAST SODIUM 10 MG TABLET PO (20:22)
[2025-06-03] MEDS: MEMANTINE HCL 5 MG TABLET 10 MG PO (20:22)
[2025-06-03] MEDS: ATORVASTATIN CALCIUM 20 MG TABLET 40 MG PO (20:22)
[2025-06-04] VITALS (8 sets, daily range): BP systolic 104–155; BP diastolic 67–94; PULSE 70–96; RESP 19–28; TEMP 36.1–36.4; O2SAT 95–97
[2025-06-04] MEDS: PIPER/TAZO 3.375 GM PREMIX 3.375 GM/50 ML BAG IV (05:04)
[2025-06-04 06:17] LABS: Basophils # (Auto) 0.1 Thou/mm3 (0.0-0.2); Basophils % (Auto) 1 % (0-2.5); Eosinophils # (Auto) 0.4 Thou/mm3 (0.0-0.5); Eosinophils % (Auto) 3 % (0-10); Hematocrit 39.8 % (36.0-46.0); Hemoglobin 13.7 g/dL (12.0-16.0); Immature Granulocytes Auto 0.18 Thou/mm3 (0.00-0.00); Lymphocytes # (Auto) 2.8 Thou/mm3 (1.0-4.8); Lymphocytes % (Auto) 25 % (10-50); Mean Corpuscular HGB Conc 34.4 g/dl (31.0-37.0); Mean Corpuscular Hemoglobin 30.8 pg (25.0-35.0); Mean Corpuscular Volume 89 fL (80-100); Monocytes # (Auto) 0.9 Thou/mm3 (0.0-0.8); Monocytes % (Auto) 8 % (0-12); Neutrophils # (Auto) 6.8 Thou/mm3 (1.8-7.7); Neutrophils % (Auto) 62 % (37-80); Nucleated Red Blood Cell # 0.02 Thou/mm3 (0.00-0.00); Nucleated Red Blood Cell % 0 /100 WBC (0); Platelet Count 153 Thou/mm3 (140-440); RDW Standard Deviation 49.8 fL (36.4-46.3); Red Blood Count 4.45 Miln/mm3 (4.00-5.20); White Blood Count 11.1 Thou/mm3 (3.6-11.0)
[2025-06-04 07:04] LABS: Alanine Aminotransferase 7 U/L (10-49); Albumin, Serum 3.0 gm/dL (3.4-4.8); Albumin/Globulin Ratio 1.2 (1.2-2.2); Alkaline Phosphatase 79 U/L (46-116); Anion Gap 10 (7-16); Aspartate Amino Transferase 22 U/L (0-34); BUN/Creatinine Ratio 18 Ratio (12-20); Bilirubin,Total 1.2 mg/dL (0.3-1.2); Blood Urea Nitrogen 11 mg/dL (9-23); Calcium 8.8 mg/dL (8.3-10.6); Calcium (Corrected) 9.6 mg/dL (8.5-10.1); Carbon Dioxide 25.5 mMol/L (20.0-31.0); Chloride 102 mMol/L (98-107); Creatinine (Component) 0.6 mg/dL (0.6-1.3); Estimated Creatinine Clearance 84.4 mL/min (>60); Globulin 2.6 gm/dL (2.3-3.5); Glucose 93 mg/dL (74-106); Osmolality,Calculated 273 (275-295); Potassium 3.6 mMol/L (3.4-5.1); Sodium 137 mMol/L (136-145); Total Protein 5.6 gm/dL (5.7-8.2); eGFR > 60 See Note
[2025-06-04] MEDS: CHOLECALCIFEROL (Vitamin D3) 1,000 IU TABLET 1000 IU PO (09:01)
[2025-06-04] MEDS: HEPARIN SOD INJ 5000 UNIT/ML VIAL SC ×2 (09:01→20:05)
[2025-06-04] MEDS: ASPIRIN EC 81 MG TABEC PO (09:01)
[2025-06-04] MEDS: ASCORBIC ACID 250 MG TABLET 500 MG PO (09:01)
[2025-06-04] MEDS: VIT B12/Vit C/FA (Nephrovite) TABLET 1 TAB PO (09:01)
[2025-06-04] MEDS: CALCIUM CARBONATE 600 MG TABLET PO (09:01)
[2025-06-04] MEDS: LOSARTAN POTASSIUM 25 MG TABLET 100 MG PO (09:02)
--- NOTE | 2025-06-04 09:47 | PC.SS ---
SS submitted SNF referral, pending responses. Pt family #1 choice is [facility]. Pt will require auth that will be initiated tomorrow 06/05 when they are open.
[2025-06-04 09:57] LABS: Magnesium 1.8 mg/dL (1.6-2.6); Phosphorous 1.7 mg/dL (2.4-5.1)
--- NOTE | 2025-06-04 16:24 | PC.SS ---
MARYBEL PULIDO completed and downloaded, no f/u needed
--- NOTE | 2025-06-04 17:59 | PD.RESPRO ---
Documentation for date of: 06/04/25 Subjective Subjective Interval history: Interval history: Patient is a 80 year old female with PMH of new onset dementia, hypertension, HLD who presented with progressive confusion over the past month. History was obtained from patient's daughter Edilma due to patient's altered mental status. Patient has had ongoing memory issues for the past 2 months, AOx1 for the past month. Also had intermittent flulike symptoms for the past month including nonproductive cough, fatigue, and a 2 day episode of n/v and diarrhea (in mid April), all of which has progressively made her weaker and less active per daughter. Previously independent with ADLs. Daughter suspects patient has not been taking her medications for the past few weeks and her house has become more unkempt over the past month. Patient lives at home alone, daughter lives in [place] and visits every weekend. Noted to be slower to respond and more tired for the past 2 days. Daughter tried to call her yesterday around noon, was not responding. Law enforcement was called due to concern, patient was found naked in recliner, altered. Upon ED arrival, GCS 14. BP 143/86, all other vitals stable. WBC 20.7, hemoglobin 17.2. Sodium 148. Anion gap 17, bicarb 24.9. BUN 24, creatinine 1.0 (baseline 0.7-0.9). Glucose 134. Lactic 4.3, LDH 350, procal negative. Calcium 9.9, phosphorus 1.8, Mg 2.1. Total bili 2.3 but liver enzymes and alk phos within normal limits. Ammonia <10. Troponin negative, BNP WNL. EKG showed sinus rhythm with occasional PVCs, no ST abnormalities noted UA showed 1+ ketones and 1+ bilirubin, negative for UTI. Head CT negative for acute infarct. CT CAP showed cirrhosis but otherwise unremarkable. Given LR bolus x2, CFX x1 Patient admitted for acute encephalopathy and sepsis rule out, unclear infection source at this time. Past Medical History: as above Family History: noncontributory Surgical History: bilateral knee arthroscopy, bilateral heel bone spur surgery Social History: Denies history of smoking, denies current alcohol use, denies recreational drug use Current Medications: ASA 81 daily, atorvastatin 40 nightly, biotin 1 mg daily, vit D3, calcium 600 mg daily, cyclobenzaprine 5 mg prn, losartan 100 mg daily, meclizine prn, memantine 10 mg nightly, montelukast 10 mg nightly, vit B12 folic acid daily Allergies: Latex (rash) 06/02/25: Patient seen and assessed on telemetry. AOx1, at baseline. Following commands, able to respond to simple questions appropriately. Complaining of abdominal pain, ordered gallbladder US. Denies chest pain and shortness of breath. Appears hypovolemic, UOP 500 cc overnight, will give another LR bolus x2. BP 144/84, restart home losartan. WBC downtrending, started on Zosyn overnight. Potassium 2.7, repleted. Total bili 1.4 (from 2.3). BHB mildly elevated, possible starvation ketosis. Anion gap closing, lactic acid improving, will continue to monitor. Spoke to patient's daughter Edilma over phone, obtained more history and updated her on plan. Would like to get in touch with social science manager for SNF placement. 06/03/25: Patient seen and assessed on telemetry. Conversational, back to baseline, AOx1. WBC 12.9. Potassium 2.8, repleted with 80 mEq orally. Lactic acidosis resolved. Bilirubin downtrending. Gall bladder US negative for obstruction or biliary dilation. Blood cultures negative for 24 hours. Continue Zosyn. Spoke with social, patient would like to be discharged to SNF. PT recommends SNF. Likely discharge tomorrow if blood cultures remain negative. 06/04/25: Patient seen and assessed on telemetry. At mental baseline. WBC continues to downtrend (11.1). CMP unremarkable. Blood cultures negative for 48 hours, discontinued abx. Updated patient's daughter. Pending authorization per social science manager. Anticipate discharge to SNF tomorrow. Exam Vital Signs Temp Pulse Resp BP Pulse Ox O2 Del Method O2 Flow Rate 97.1 F 90 26 H 107/67 95 Room Air 3 06/04/25 16:00 06/04/25 16:00 06/04/25 16:00 06/04/25 16:00 06/04/25 16:00 06/04/25 16:00 06/04/25 04:00 FiO2 90 06/02/25 12:00 Narrative Exam Physical Exam General: Awake and in no acute distressed. Elderly lady, pleasantly confused. Conversational. At baseline. HEENT: Normocephalic, atraumatic, mucous membranes dry. Heart: Regular rate and rhythm, normal S1 and S2, no murmurs appreciated appreciated. Lungs: Clear to auscultation with no wheezing or crackles. Abdomen: Soft, nondistended, positive bowel sounds. No guarding or rebound tenderness. Neurologic: AOx1, no gross neurological deficit, and patient able to move all 4 extremities. Strength intact. Extremities: No edema. Skin: No rash or ecchymoses. Objective Labs 06/04/25 05:55 06/04/25 05:55 Labs: Laboratory Results - last 24 hr 06/03/25 06/04/25 16:42 05:55 WBC 11.1 H RBC 4.45 Hgb 13.7 Hct 39.8 MCV 89 MCH 30.8 MCHC 34.4 RDW Std Deviation 49.8 H Plt Count 153 Neut % (Auto) 62 Lymph % (Auto) 25 [place] % (Auto) 8 Eos % (Auto) 3 Baso % (Auto) 1 Neut # (Auto) 6.8 Lymph # (Auto) 2.8 [place] # (Auto) 0.9 H Eos # (Auto) 0.4 Baso # (Auto) 0.1 Immature Gran # (Auto) 0.18 H Absolute Nucleated RBC 0.02 H Immature Gran % 2 H Nucleated RBC % 0 Sodium 139 137 Potassium 3.8 D 3.6 Chloride 100 102 Carbon Dioxide 27.5 25.5 Anion Gap 12 10 BUN 11 11 Creatinine 0.6 0.6 Estim Creat Clear Calc 84.4 84.4 eGFR > 60 > 60 BUN/Creatinine Ratio 18 18 Glucose 91 93 Calculated Osmolality 276 273 L Calcium 8.9 8.8 Corrected Calcium 9.4 9.6 Phosphorus 1.6 L 1.7 L Magnesium 1.8 Total Bilirubin 1.2 AST 22 ALT 7 L Alkaline Phosphatase 79 Total Protein 5.6 L Albumin 3.4 3.0 L Globulin 2.6 Albumin/Globulin Ratio 1.2 Quality Measures Quality Measures none Advance care planning discussed with:: patient and child Assessment & Plan Assessment Current Active Medications: Generic Name Dose Route Start Last Admin Trade Name Freq PRN Reason Stop Dose Admin Ascorbic Acid 500 mg 06/02/25 11:45 06/04/25 09:01 Ascorbic Acid 250 Mg Tablet PO 07/02/25 11:44 500 mg QDAY NOAM Administration Aspirin 81 mg 06/03/25 09:00 06/04/25 09:01 Aspirin Ec 81 Mg Tabec PO 07/03/25 08:59 81 mg QDAY NOAM Administration Atorvastatin Calcium 40 mg 06/02/25 21:00 06/03/25 20:22 Atorvastatin Calcium 20 Mg Tablet PO 07/02/25 20:59 40 mg HS NOAM Administration Calcium Carbonate 600 mg 06/03/25 09:00 06/04/25 09:01 Calcium Carbonate 600 Mg Tablet PO 07/03/25 08:59 600 mg DAILY NOAM Administration Cyclobenzaprine HCl 5 mg 06/02/25 11:35 Cyclobenzaprine 5 Mg Tablet PO 07/02/25 11:34 HS PRN Spasms Heparin Sodium (Porcine) 5,000 unit 06/02/25 21:00 06/04/25 09:01 Heparin Sod Inj 5000 Unit/Ml Vial SC 06/16/25 20:59 5,000 unit Q12HR NOAM Administration Losartan Potassium 100 mg 06/02/25 11:45 06/04/25 09:02 Losartan Potassium 25 Mg Tablet PO 07/02/25 11:44 100 mg QDAY NOAM Administration Meclizine HCl 12.5 mg 06/02/25 11:35 Meclizine Hcl 25 Mg Tablet PO TID PRN Dizziness Memantine 10 mg 06/02/25 21:00 06/03/25 20:22 Memantine Hcl 5 Mg Tablet PO 07/02/25 20:59 10 mg HS NOAM Administration Montelukast Sodium 10 mg 06/02/25 21:00 06/03/25 20:22 Montelukast Sodium 10 Mg Tablet PO 07/02/25 20:59 10 mg QPM NOAM Administration Vitamin B Complex/Vit C/Folic Acid 1 tab 06/02/25 11:45 06/04/25 09:01 Vit B12/Vit C/Fa (Nephrovite) Tablet PO 07/02/25 11:44 1 tab QDAY NOAM Administration Vitamin D 1,000 iu 06/03/25 09:00 06/04/25 09:01 Cholecalciferol (Vitamin D3) 1,000 Iu Tablet PO 07/03/25 08:59 1,000 iu QDAY NOAM Administration Plan Patient is a 80 year old female with PMH of new onset dementia, hypertension, HLD who presented with progressive confusion over the past month, admitted to telemetry for acute encephalopathy and sepsis rule out, unclear infection source at this time. #Acute encephalopathy (resolved) #Sepsis rule out - Presented on 06/01 for worsened altered mental status. Last known normal last night, however daughter also notes that she has become progressively confused for the past month, which she attributes to her dementia. Also reports increasing fatigue and persistent nonproductive cough. AOx1 at baseline but previously independent with ADLs. - Home medication includes ASA 81, unknown history of stroke/TIA - BP mildly elevated at 143/86, other vitals stable, afebrile - WBC 20.7 -> 16.0 - CMP unremarkable except for total bili 2.3. Liver enzymes and alk phos WNL. - Lactic acid and LDH elevated, procal negative, ammonia <10. - EKG showed normal sinus rhythm with occasional PVCs, no ST abnormalities - UA negative for UTI but shows ketones and bilirubin - CT head negative for acute infarct - CT CAP showed moderate vascular congestion but negative for lobar PNA, appendicitis, diverticulitis - Gallbladder US negative - Influenza A&B negative - Blood cultures negative after 48 hours - S/p total 6L fluids - Suspect metabolic secondary to lactic acidosis, possible sepsis but no clear source of infection at this time. Suspect viral. - Patient has returned to mental baseline, conversational, AOx1. Able to recognize familiar face. Moving all extremities, no deficits noted, low suspicion for stroke. Plan: - Discontinue Zosyn (06/01-06/04) - ASA 81 mg daily (home medication) #Hx of dementia - Has been having memory issues for the past 2 months per daughter. Appears to have worsening mentation over the past month - Officially diagnosed in PCP office in April per daughter, MMSE 23/30 Plan: - Continue memantine 10 mg nightly - ASA 81 mg daily - Atorvastatin 40 mg nightly - Consider MRI or outpatient work up for dementia work up - travel services professional consulted - PT consulted - Pending SNF placement #HTN - Continue losartan 100 mg daily #HLD - Continue atorvastatin 40 mg nightly #Conjunctivitis - Appears to have conjunctivitis on exam, some crusty discharge around eyes - Possibly infection versus dry eyes iso hypovolemia Plan: - S/p gentamicin eye drops #Scattered colonic diverticulosis #Severe osteopenia #Diffuse thoracic lumbar degenerative disease - Incidental findings on CT CAP - No active treatment at this time - Outpatient follow up #Lactic acidosis, likely type A (resolved) #Anion gap metabolic acidosis (resolved) #Hypokalemia (resolved) #Hypovolemic hypernatremia (resolved) Health Maintenance Disposition: telemetry DVT prophylaxis: heparin SC GI prophylaxis: none Diet: cardiac CODE STATUS: FULL Patient plan of care was discussed with the attending physician, Dr. Tony. Hallie Ocampo DO, PGY-1 Attending Provider Attestation/Addendum Patient currently seen and examined with resident physician Dr. Ocampo. Note reviewed, agree with findings and recommendations. Patient currently seen in telemetry. Confused. Continue with fluids. So far cultures pending CT brain negative DC Ferrer. More alert and awake. Plan for discharge in am to rehab. add lactulose
[2025-06-04] MEDS: LACTULOSE SYRUP 20 GM/30 ML UDC PO (18:28)
[2025-06-04] MEDS: ATORVASTATIN CALCIUM 20 MG TABLET 40 MG PO (20:05)
[2025-06-04] MEDS: MEMANTINE HCL 5 MG TABLET 10 MG PO (20:05)
[2025-06-04] MEDS: MONTELUKAST SODIUM 10 MG TABLET PO (20:05)
[2025-06-05] VITALS (8 sets, daily range): BP systolic 112–175; BP diastolic 82–98; PULSE 74–144; RESP 14–27; TEMP 36.1–36.9; O2SAT 94–98; BMI 29.7
[2025-06-05] MEDS: LACTULOSE SYRUP 20 GM/30 ML UDC PO (08:50)
[2025-06-05] MEDS: CALCIUM CARBONATE 600 MG TABLET PO (08:51)
[2025-06-05] MEDS: ASCORBIC ACID 250 MG TABLET 500 MG PO (08:51)
[2025-06-05] MEDS: LOSARTAN POTASSIUM 25 MG TABLET 100 MG PO (08:51)
[2025-06-05] MEDS: HEPARIN SOD INJ 5000 UNIT/ML VIAL SC ×2 (08:51→20:27)
[2025-06-05] MEDS: VIT B12/Vit C/FA (Nephrovite) TABLET 1 TAB PO (08:51)
[2025-06-05] MEDS: CHOLECALCIFEROL (Vitamin D3) 1,000 IU TABLET 1000 IU PO (08:51)
[2025-06-05] MEDS: ASPIRIN EC 81 MG TABEC PO (08:51)
--- NOTE | 2025-06-05 10:52 | PC.SS ---
Follow up note: SS has notified patient's health insurance [employer] is accept and SS was informed for PT to work with pt.
[2025-06-05] MEDS: MEMANTINE HCL 5 MG TABLET 10 MG PO (20:27)
[2025-06-05] MEDS: ATORVASTATIN CALCIUM 20 MG TABLET 40 MG PO (20:27)
[2025-06-05] MEDS: MONTELUKAST SODIUM 10 MG TABLET PO (20:28)
--- NOTE | 2025-06-05 22:20 | ESPR_ITS ---
Documentation for date of: 06/05/25 Subjective Subjective Interval history: Patient is a 80 year old female with PMH of new onset dementia, hypertension, HLD who presented with progressive confusion over the past month. History was obtained from patient's daughter Edilma due to patient's altered mental status. Patient has had ongoing memory issues for the past 2 months, AOx1 for the past month. Also had intermittent flulike symptoms for the past month including nonproductive cough, fatigue, and a 2 day episode of n/v and diarrhea (in mid April), all of which has progressively made her weaker and less active per daughter. Previously independent with ADLs. Daughter suspects patient has not been taking her medications for the past few weeks and her house has become more unkempt over the past month. Patient lives at home alone, daughter lives in [place] and visits every weekend. Noted to be slower to respond and more tired for the past 2 days. Daughter tried to call her yesterday around noon, was not responding. Law enforcement was called due to concern, patient was found naked in recliner, altered. Upon ED arrival, GCS 14. BP 143/86, all other vitals stable. WBC 20.7, hemoglobin 17.2. Sodium 148. Anion gap 17, bicarb 24.9. BUN 24, creatinine 1.0 (baseline 0.7-0.9). Glucose 134. Lactic 4.3, LDH 350, procal negative. Calcium 9.9, phosphorus 1.8, Mg 2.1. Total bili 2.3 but liver enzymes and alk phos within normal limits. Ammonia <10. Troponin negative, BNP WNL. EKG showed sinus rhythm with occasional PVCs, no ST abnormalities noted UA showed 1+ ketones and 1+ bilirubin, negative for UTI. Head CT negative for acute infarct. CT CAP showed cirrhosis but otherwise unremarkable. Given LR bolus x2, CFX x1 Patient admitted for acute encephalopathy and sepsis rule out, unclear infection source at this time. Past Medical History: as above Family History: noncontributory Surgical History: bilateral knee arthroscopy, bilateral heel bone spur surgery Social History: Denies history of smoking, denies current alcohol use, denies recreational drug use Current Medications: ASA 81 daily, atorvastatin 40 nightly, biotin 1 mg daily, vit D3, calcium 600 mg daily, cyclobenzaprine 5 mg prn, losartan 100 mg daily, meclizine prn, memantine 10 mg nightly, montelukast 10 mg nightly, vit B12 folic acid daily Allergies: Latex (rash) 06/02/25: Patient seen and assessed on telemetry. AOx1, at baseline. Following commands, able to respond to simple questions appropriately. Complaining of abdominal pain, ordered gallbladder US. Denies chest pain and shortness of breath. Appears hypovolemic, UOP 500 cc overnight, will give another LR bolus x2. BP 144/84, restart home losartan. WBC downtrending, started on Zosyn overnight. Potassium 2.7, repleted. Total bili 1.4 (from 2.3). BHB mildly elevated, possible starvation ketosis. Anion gap closing, lactic acid improving, will continue to monitor. Spoke to patient's daughter Edilma over phone, obtained more history and updated her on plan. Would like to get in touch with social media senior associate for SNF placement. 06/03/25: Patient seen and assessed on telemetry. Conversational, back to baseline, AOx1. WBC 12.9. Potassium 2.8, repleted with 80 mEq orally. Lactic acidosis resolved. Bilirubin downtrending. Gall bladder US negative for obstruction or biliary dilation. Blood cultures negative for 24 hours. Continue Zosyn. Spoke with social, patient would like to be discharged to SNF. PT recommends SNF. Likely discharge tomorrow if blood cultures remain negative. 06/04/25: Patient seen and assessed on telemetry. At mental baseline. WBC continues to downtrend (11.1). CMP unremarkable. Blood cultures negative for 48 hours, discontinued abx. Updated patient's daughter. Pending authorization per social media senior associate. Anticipate discharge to SNF tomorrow. 06/05/2025 patient currently seen in telemetry overnight she got confused and was given 1 dose of Risperdal and softly restrained. During lunchtime she is more alert and awake although still confused. Labs and medications have been reviewed. No evidence of any active infection. Will monitor today-suspect related to dementia with delirium related to the hospitalization. If no improvement will request neurology consult. CT brain was negative. Review of Systems Review of Systems ROS Unobtainable: unobtainable due to mental status and unobtainable due to medical condition Exam Vital Signs Temp Pulse Resp BP Pulse Ox O2 Del Method O2 Flow Rate 36.1 C 87 14 118/82 97 Room Air 3 06/05/25 20:00 06/05/25 20:00 06/05/25 20:00 06/05/25 20:00 06/05/25 20:00 06/05/25 20:00 06/05/25 16:00 FiO2 90 06/05/25 16:00 Narrative Exam GENERAL APPEARANCE: Patient seems to be comfortable, adequately hydrated and nourished. HEENT: EOMI, PERRLA NECK: Neck supple, no JVD or bruit CARDIOVASCULAR: Heart regular, no murmurs LUNGS/CHEST: Chest clear to auscultation. No rales, rhonchi, wheezing ABDOMEN: Soft, nontender, nondistended. No masses. Normal bowel sounds. EXTREMITIES: No edema, clubbing or cyanosis. SKIN: Skin exam normal without any rashes MUSCULOSKELETAL: In bed NEUROLOGICAL : softly restrained Objective Labs 06/04/25 05:55 06/04/25 05:55 Assessment & Plan Additional Assessment & Plan Additional Plan: Patient is a 80 year old female with PMH of new onset dementia, hypertension, HLD who presented with progressive confusion over the past month, admitted to telemetry for acute encephalopathy and sepsis rule out, unclear infection source at this time. #Acute encephalopathy (resolved) #Sepsis rule out - Presented on 06/01 for worsened altered mental status. Last known normal last night, however daughter also notes that she has become progressively confused for the past month, which she attributes to her dementia. Also reports increasing fatigue and persistent nonproductive cough. AOx1 at baseline but previously independent with ADLs. - Home medication includes ASA 81, unknown history of stroke/TIA - BP mildly elevated at 143/86, other vitals stable, afebrile - WBC 20.7 -> 16.0 - CMP unremarkable except for total bili 2.3. Liver enzymes and alk phos WNL. - Lactic acid and LDH elevated, procal negative, ammonia <10. - EKG showed normal sinus rhythm with occasional PVCs, no ST abnormalities - UA negative for UTI but shows ketones and bilirubin - CT head negative for acute infarct - CT CAP showed moderate vascular congestion but negative for lobar PNA, appendicitis, diverticulitis - Gallbladder US negative - Influenza A&B negative - Blood cultures negative after 48 hours - S/p total 6L fluids - Suspect metabolic secondary to lactic acidosis, possible sepsis but no clear source of infection at this time. Suspect viral. - Patient last night got confused again. Suspect at this time related to sundowning. Currently soft restraint. Not ready for discharge. Will request neurology consult if needed. Plan: - Discontinue Zosyn (06/01-06/04) - ASA 81 mg daily (home medication) #Hx of dementia - Has been having memory issues for the past 2 months per daughter. Appears to have worsening mentation over the past month - Officially diagnosed in PCP office in April per daughter, MMSE Plan: - Continue memantine 10 mg nightly - ASA 81 mg daily - Atorvastatin 40 mg nightly - Will do MRI - accounting advisory services manager consulted - PT consulted - Pending SNF placement #HTN - Continue losartan 100 mg daily #HLD - Continue atorvastatin 40 mg nightly #Conjunctivitis - Appears to have conjunctivitis on exam, some crusty discharge around eyes - Possibly infection versus dry eyes iso hypovolemia Plan: - S/p gentamicin eye drops #Scattered colonic diverticulosis #Severe osteopenia #Diffuse thoracic lumbar degenerative disease - Incidental findings on CT CAP - No active treatment at this time - Outpatient follow up #Lactic acidosis, likely type A (resolved) #Anion gap metabolic acidosis (resolved) #Hypokalemia (resolved) #Hypovolemic hypernatremia (resolved) Health Maintenance Disposition: telemetry DVT prophylaxis: heparin SC GI prophylaxis: none Diet: cardiac CODE STATUS: FULL
[2025-06-06] VITALS (12 sets, daily range): BP systolic 121–154; BP diastolic 83–108; PULSE 79–112; RESP 15–26; TEMP 36–36.7; O2SAT 95–98
[2025-06-06 06:32] LABS: Basophils # (Auto) 0.1 Thou/mm3 (0.0-0.2); Basophils % (Auto) 1 % (0-2.5); Eosinophils # (Auto) 0.5 Thou/mm3 (0.0-0.5); Eosinophils % (Auto) 3 % (0-10); Hematocrit 41.3 % (36.0-46.0); Hemoglobin 14.1 g/dL (12.0-16.0); Immature Granulocytes Auto 0.34 Thou/mm3 (0.00-0.00); Lymphocytes # (Auto) 2.9 Thou/mm3 (1.0-4.8); Lymphocytes % (Auto) 20 % (10-50); Mean Corpuscular HGB Conc 34.1 g/dl (31.0-37.0); Mean Corpuscular Hemoglobin 31.3 pg (25.0-35.0); Mean Corpuscular Volume 92 fL (80-100); Monocytes # (Auto) 1.7 Thou/mm3 (0.0-0.8); Monocytes % (Auto) 12 % (0-12); Neutrophils # (Auto) 8.6 Thou/mm3 (1.8-7.7); Neutrophils % (Auto) 61 % (37-80); Nucleated Red Blood Cell # 0.03 Thou/mm3 (0.00-0.00); Nucleated Red Blood Cell % 0 /100 WBC (0); Platelet Count 168 Thou/mm3 (140-440); RDW Standard Deviation 52.9 fL (36.4-46.3); Red Blood Count 4.51 Miln/mm3 (4.00-5.20); White Blood Count 14.0 Thou/mm3 (3.6-11.0)
[2025-06-06 06:45] LABS: Alanine Aminotransferase 18 U/L (10-49); Albumin, Serum 3.4 gm/dL (3.4-4.8); Albumin/Globulin Ratio 1.3 (1.2-2.2); Alkaline Phosphatase 76 U/L (46-116); Anion Gap 12 (7-16); Aspartate Amino Transferase 26 U/L (0-34); BUN/Creatinine Ratio 17 Ratio (12-20); Bilirubin,Total 0.7 mg/dL (0.3-1.2); Blood Urea Nitrogen 10 mg/dL (9-23); Calcium 9.1 mg/dL (8.3-10.6); Calcium (Corrected) 9.6 mg/dL (8.5-10.1); Carbon Dioxide 21.5 mMol/L (20.0-31.0); Chloride 107 mMol/L (98-107); Creatinine (Component) 0.6 mg/dL (0.6-1.3); Estimated Creatinine Clearance 85.5 mL/min (>60); Globulin 2.6 gm/dL (2.3-3.5); Glucose 108 mg/dL (74-106); Osmolality,Calculated 279 (275-295); Potassium 3.8 mMol/L (3.4-5.1); Sodium 140 mMol/L (136-145); Total Protein 6.0 gm/dL (5.7-8.2); eGFR > 60 See Note
--- NOTE | 2025-06-06 09:31 | PD.NEPHPROG ---
Documentation for date of: 06/06/25 Subjective Subjective Interval history: Patient is a 80 year old female with PMH of new onset dementia, hypertension, HLD who presented with progressive confusion over the past month. History was obtained from patient's daughter Edilma due to patient's altered mental status. Patient has had ongoing memory issues for the past 2 months, AOx1 for the past month. Also had intermittent flulike symptoms for the past month including nonproductive cough, fatigue, and a 2 day episode of n/v and diarrhea (in mid April), all of which has progressively made her weaker and less active per daughter. Previously independent with ADLs. Daughter suspects patient has not been taking her medications for the past few weeks and her house has become more unkempt over the past month. Patient lives at home alone, daughter lives in [place] and visits every weekend. Noted to be slower to respond and more tired for the past 2 days. Daughter tried to call her yesterday around noon, was not responding. Law enforcement was called due to concern, patient was found naked in recliner, altered. Upon ED arrival, GCS 14. BP 143/86, all other vitals stable. WBC 20.7, hemoglobin 17.2. Sodium 148. Anion gap 17, bicarb 24.9. BUN 24, creatinine 1.0 (baseline 0.7-0.9). Glucose 134. Lactic 4.3, LDH 350, procal negative. Calcium 9.9, phosphorus 1.8, Mg 2.1. Total bili 2.3 but liver enzymes and alk phos within normal limits. Ammonia <10. Troponin negative, BNP WNL. EKG showed sinus rhythm with occasional PVCs, no ST abnormalities noted UA showed 1+ ketones and 1+ bilirubin, negative for UTI. Head CT negative for acute infarct. CT CAP showed cirrhosis but otherwise unremarkable. Given LR bolus x2, CFX x1 Patient admitted for acute encephalopathy and sepsis rule out, unclear infection source at this time. Past Medical History: as above Family History: noncontributory Surgical History: bilateral knee arthroscopy, bilateral heel bone spur surgery Social History: Denies history of smoking, denies current alcohol use, denies recreational drug use Current Medications: ASA 81 daily, atorvastatin 40 nightly, biotin 1 mg daily, vit D3, calcium 600 mg daily, cyclobenzaprine 5 mg prn, losartan 100 mg daily, meclizine prn, memantine 10 mg nightly, montelukast 10 mg nightly, vit B12 folic acid daily Allergies: Latex (rash) 06/02/25: Patient seen and assessed on telemetry. AOx1, at baseline. Following commands, able to respond to simple questions appropriately. Complaining of abdominal pain, ordered gallbladder US. Denies chest pain and shortness of breath. Appears hypovolemic, UOP 500 cc overnight, will give another LR bolus x2. BP 144/84, restart home losartan. WBC downtrending, started on Zosyn overnight. Potassium 2.7, repleted. Total bili 1.4 (from 2.3). BHB mildly elevated, possible starvation ketosis. Anion gap closing, lactic acid improving, will continue to monitor. Spoke to patient's daughter Edilma over phone, obtained more history and updated her on plan. Would like to get in touch with social security benefits interviewer for SNF placement. 06/03/25: Patient seen and assessed on telemetry. Conversational, back to baseline, AOx1. WBC 12.9. Potassium 2.8, repleted with 80 mEq orally. Lactic acidosis resolved. Bilirubin downtrending. Gall bladder US negative for obstruction or biliary dilation. Blood cultures negative for 24 hours. Continue Zosyn. Spoke with social, patient would like to be discharged to SNF. PT recommends SNF. Likely discharge tomorrow if blood cultures remain negative. 06/04/25: Patient seen and assessed on telemetry. At mental baseline. WBC continues to downtrend (11.1). CMP unremarkable. Blood cultures negative for 48 hours, discontinued abx. Updated patient's daughter. Pending authorization per social security benefits interviewer. Anticipate discharge to SNF tomorrow. 06/05/2025 patient currently seen in telemetry overnight she got confused and was given 1 dose of Risperdal and softly restrained. During lunchtime she is more alert and awake although still confused. Labs and medications have been reviewed. No evidence of any active infection. Will monitor today-suspect related to dementia with delirium related to the hospitalization. If no improvement will request neurology consult. CT brain was negative. 06/06/2025 patient currently seen in telemetry. She still seems to be slightly confused and having memory lapses. MRI brain ordered. Awaiting neurology evaluation. She had a bowel movement yesterday. Not ready for discharge to rehab. Labs have been stable. Review of Systems Review of Systems Narrative Review of Systems: Limited as patient seems to be still confused. Denies any chest pain, shortness of breath. Denies any nausea, vomiting Exam Vital Signs Temp Pulse Resp BP Pulse Ox O2 Del Method O2 Flow Rate 36.7 C 98 26 H 151/108 H 96 Room Air 3 06/06/25 15:57 06/06/25 16:18 06/06/25 15:57 06/06/25 16:18 06/06/25 15:57 06/06/25 15:57 06/05/25 16:00 FiO2 90 06/05/25 16:00 Narrative Exam GENERAL APPEARANCE: Patient seems to be comfortable, adequately hydrated and nourished. HEENT: EOMI, PERRLA NECK: Neck supple, no JVD or bruit CARDIOVASCULAR: Heart regular, no murmurs LUNGS/CHEST: Chest clear to auscultation. No rales, rhonchi, wheezing ABDOMEN: Soft, nontender, nondistended. No masses. Normal bowel sounds. EXTREMITIES: No edema, clubbing or cyanosis. SKIN: Skin exam normal without any rashes MUSCULOSKELETAL: In bed NEUROLOGICAL : Still having memory lapses. Off restraints Objective Labs 06/06/25 05:30 06/06/25 05:30 Labs: Laboratory Results - last 24 hr 06/06/25 05:30 WBC 14.0 H RBC 4.51 Hgb 14.1 Hct 41.3 MCV 92 MCH 31.3 MCHC 34.1 RDW Std Deviation 52.9 H Plt Count 168 Neut % (Auto) 61 Lymph % (Auto) 20 [place] % (Auto) 12 Eos % (Auto) 3 Baso % (Auto) 1 Neut # (Auto) 8.6 H Lymph # (Auto) 2.9 [place] # (Auto) 1.7 H Eos # (Auto) 0.5 Baso # (Auto) 0.1 Immature Gran # (Auto) 0.34 H Absolute Nucleated RBC 0.03 H Immature Gran % 2 H Nucleated RBC % 0 Sodium 140 Potassium 3.8 Chloride 107 Carbon Dioxide 21.5 Anion Gap 12 BUN 10 Creatinine 0.6 Estim Creat Clear Calc 85.5 eGFR > 60 BUN/Creatinine Ratio 17 Glucose 108 H Calculated Osmolality 279 Calcium 9.1 Corrected Calcium 9.6 Total Bilirubin 0.7 D AST 26 ALT 18 Alkaline Phosphatase 76 Total Protein 6.0 Albumin 3.4 Globulin 2.6 Albumin/Globulin Ratio 1.3 Assessment & Plan Additional Assessment & Plan Additional Plan: Patient is a 80 year old female with PMH of new onset dementia, hypertension, HLD who presented with progressive confusion over the past month, admitted to telemetry for acute encephalopathy and sepsis rule out, unclear infection source at this time. #Acute encephalopathy (resolved) #Sepsis rule out - Presented on 06/01 for worsened altered mental status. Last known normal last night, however daughter also notes that she has become progressively confused for the past month, which she attributes to her dementia. Also reports increasing fatigue and persistent nonproductive cough. AOx1 at baseline but previously independent with ADLs. - Home medication includes ASA 81, unknown history of stroke/TIA - BP mildly elevated at 143/86, other vitals stable, afebrile - WBC 20.7 -> 16.0 - CMP unremarkable except for total bili 2.3. Liver enzymes and alk phos WNL. - Lactic acid and LDH elevated, procal negative, ammonia <10. - EKG showed normal sinus rhythm with occasional PVCs, no ST abnormalities - UA negative for UTI but shows ketones and bilirubin - CT head negative for acute infarct - CT CAP showed moderate vascular congestion but negative for lobar PNA, appendicitis, diverticulitis - Gallbladder US negative - Influenza A&B negative - Blood cultures negative after 48 hours - S/p total 6L fluids - Suspect metabolic secondary to lactic acidosis, possible sepsis but no clear source of infection at this time. Suspect viral. - Patient last night got confused again. Suspect at this time related to . Currently soft restraint. Not ready for discharge. Will request neurology consult, MRI brain ordered. Plan: - Discontinue Zosyn (06/01-06/04) - ASA 81 mg daily (home medication) #Hx of dementia - Has been having memory issues for the past 2 months per daughter. Appears to have worsening mentation over the past month - Officially diagnosed in PCP office in April per daughter, MMSE Plan: - Continue memantine 10 mg twice daily - ASA 81 mg daily - Atorvastatin 40 mg nightly - Will do MRI - respiratory services manager consulted - PT consulted - Pending SNF placement #HTN - Continue losartan 100 mg daily #HLD - Continue atorvastatin 40 mg nightly #Conjunctivitis - Appears to have conjunctivitis on exam, some crusty discharge around eyes - Possibly infection versus dry eyes iso hypovolemia Plan: - S/p gentamicin eye drops #Scattered colonic diverticulosis #Severe osteopenia #Diffuse thoracic lumbar degenerative disease - Incidental findings on CT CAP - No active treatment at this time - Outpatient follow up #Lactic acidosis, likely type A (resolved) #Anion gap metabolic acidosis (resolved) #Hypokalemia (resolved) #Hypovolemic hypernatremia (resolved) Health Maintenance Disposition: telemetry DVT prophylaxis: heparin SC GI prophylaxis: none Diet: cardiac CODE STATUS: FULL
[2025-06-06] MEDS: HEPARIN SOD INJ 5000 UNIT/ML VIAL SC (09:57)
[2025-06-06] MEDS: ASCORBIC ACID 250 MG TABLET 500 MG PO (09:57)
[2025-06-06] MEDS: ASPIRIN EC 81 MG TABEC PO (09:57)
[2025-06-06] MEDS: LOSARTAN POTASSIUM 25 MG TABLET 100 MG PO (09:57)
[2025-06-06] MEDS: CALCIUM CARBONATE 600 MG TABLET PO (09:57)
[2025-06-06] MEDS: CHOLECALCIFEROL (Vitamin D3) 1,000 IU TABLET 1000 IU PO (09:57)
[2025-06-06] MEDS: LACTULOSE SYRUP 20 GM/30 ML UDC PO (09:57)
[2025-06-06] MEDS: VIT B12/Vit C/FA (Nephrovite) TABLET 1 TAB PO (09:58)
[2025-06-06] MEDS: MEMANTINE HCL 5 MG TABLET 10 MG PO ×2 (09:58→22:09)
--- NOTE | 2025-06-06 18:30 | XR_ITS ---
Examination: Abdomen AP single view Technique: AP portable supine abdomen, single view Exam date and time: June 06, 2025, 2109 hours INDICATIONS: Onset abdominal pain today FINDINGS: Prominent colonic ileus No obstruction No free air Lung bases clear Severe osteopenia IMPRESSION: Prominent colonic ileus
[2025-06-06] MEDS: HYDROcodone/APAP 5/325 TABLET 1 TAB PO (19:28)
[2025-06-06] MEDS: ONDANSETRON INJ 2 MG/ML INJ 2 ML 4 MG IVP (20:02)
[2025-06-06] MEDS: POTASSIUM CHL 10 mEq IVPB 10 MEQ/100 ML BAG 100 MEQ IV (20:26)
[2025-06-06] MEDS: MORPHINE SULF INJ 4 MG/ML VIAL 1 MG IVP (21:10)
[2025-06-06] MEDS: ATORVASTATIN CALCIUM 20 MG TABLET 40 MG PO (22:09)
[2025-06-06] MEDS: METOPROLOL TARTRATE 25 MG TABLET 50 MG PO (22:10)
[2025-06-07] VITALS (9 sets, daily range): BP systolic 111–153; BP diastolic 74–101; PULSE 70–106; RESP 17–31; TEMP 35.9–36.5; O2SAT 93–95; BMI 30.5
--- NOTE | 2025-06-07 | XR_ITS ---
Examination: MRI brain without intravenous contrast. Date and time of exam: 06/07/2025 at 10:00 a.m. Technique: Multiple axial and sagittal images of the brain obtained. Siemens high-resolution 1.5 Angie short bore scanners utilized. Sagittal sections, T1-weighted, TR 500, TE 14, are performed. Axial sections proton-density and T2-weighted have been obtained. Inversion recovery axial images, TR 9, 260, TE 111, TI 2500. Diffusion weighted images, axial sections, TR 4800, TE 128, B value 1000 Axial sections, ADC map, TR 4800, TE 128 INDICATION: Confusion and altered mental status for 1 week Comparison study, CT head scan on 06/01/2025 Findings: The diffusion weighted images show no evidence of any restricted diffusion anywhere. The cortical sulci over the parietal convexities are reasonably normal in a patient this age. Likewise over the frontal lobes. The sylvian cisterns are significantly dilated bilaterally as is the extra-axial space over the anterior temporal lobes, and the anterior horn of the right lateral ventricle is significantly distended. There is moderate definite abnormal distention of the lateral ventricles, the third ventricle and fourth ventricle are normal in size. There is flattening of the pituitary gland, a common finding in elderly persons There is significant abnormal patchy hyperintense signal noted throughout much of the brainstem. The cerebellar hemispheres appear essentially normal. No abnormalities are seen involving the vascular flow voids on either side, paranasal sinuses and mastoids are clear, and no orbital abnormalities are seen. IMPRESSION: 1. There is very significant atrophy in the region of the sylvian cisterns and anterior temporal lobe bilaterally 2 there is significant abnormal patchy hyperintense signal noted throughout much of the brainstem consistent with chronic microvascular angiopathy 3. In particular there is very significant atrophy related to the middle and anterior temporal lobes on both sides, and involving the insula. Impression:
[2025-06-07 05:25] LABS: Basophils # (Auto) 0.1 Thou/mm3 (0.0-0.2); Basophils % (Auto) 0 % (0-2.5); Eosinophils # (Auto) 0.0 Thou/mm3 (0.0-0.5); Eosinophils % (Auto) 0 % (0-10); Hematocrit 44.5 % (36.0-46.0); Hemoglobin 14.7 g/dL (12.0-16.0); Immature Granulocytes Auto 0.22 Thou/mm3 (0.00-0.00); Lymphocytes # (Auto) 1.2 Thou/mm3 (1.0-4.8); Lymphocytes % (Auto) 6 % (10-50); Mean Corpuscular HGB Conc 33.0 g/dl (31.0-37.0); Mean Corpuscular Hemoglobin 30.4 pg (25.0-35.0); Mean Corpuscular Volume 92 fL (80-100); Monocytes # (Auto) 1.9 Thou/mm3 (0.0-0.8); Monocytes % (Auto) 10 % (0-12); Neutrophils # (Auto) 16.6 Thou/mm3 (1.8-7.7); Neutrophils % (Auto) 83 % (37-80); Nucleated Red Blood Cell # 0.04 Thou/mm3 (0.00-0.00); Nucleated Red Blood Cell % 0 /100 WBC (0); Platelet Count 166 Thou/mm3 (140-440); RDW Standard Deviation 53.1 fL (36.4-46.3); Red Blood Count 4.84 Miln/mm3 (4.00-5.20); White Blood Count 20.1 Thou/mm3 (3.6-11.0)
[2025-06-07 05:49] LABS: Alanine Aminotransferase 25 U/L (10-49); Albumin, Serum 3.7 gm/dL (3.4-4.8); Albumin/Globulin Ratio 1.3 (1.2-2.2); Alkaline Phosphatase 86 U/L (46-116); Anion Gap 11 (7-16); Aspartate Amino Transferase 32 U/L (0-34); BUN/Creatinine Ratio 13 Ratio (12-20); Bilirubin,Total 0.8 mg/dL (0.3-1.2); Blood Urea Nitrogen 10 mg/dL (9-23); Calcium 9.7 mg/dL (8.3-10.6); Calcium (Corrected) 9.9 mg/dL (8.5-10.1); Carbon Dioxide 22.1 mMol/L (20.0-31.0); Chloride 104 mMol/L (98-107); Creatinine (Component) 0.8 mg/dL (0.6-1.3); Estimated Creatinine Clearance 64.1 mL/min (>60); Globulin 2.8 gm/dL (2.3-3.5); Glucose 126 mg/dL (74-106); Osmolality,Calculated 274 (275-295); Potassium 4.6 mMol/L (3.4-5.1); Sodium 137 mMol/L (136-145); Total Protein 6.5 gm/dL (5.7-8.2); eGFR > 60 See Note
--- NOTE | 2025-06-07 08:10 | XR_ITS ---
EXAMINATION: AP chest single view TECHNIQUE: AP portable semiupright chest single view Date and time: June 07, 2025, 0857 hours INDICATIONS: Sepsis alert FINDINGS: Pneumonia left base obscuring detail left hemidiaphragm Reduced inspiratory effort No significant cardiac enlargement Prominent osteopenia IMPRESSION: Significant pneumonia left base
--- NOTE | 2025-06-07 10:00 | PC.SS ---
Rounding: Pending Dr. Saxena consult
[2025-06-07] MEDS: PIPER/TAZO 3.375 GM PREMIX 3.375 GM/50 ML BAG IV ×3 (11:24→23:17)
--- NOTE | 2025-06-07 12:30 | PD.SURCONS ---
HPI Consult details Consult date: 06/07/25 Reason for consultation narrative: Patient was seen in consultation because of colonic ileus seen on the abdominal series History of present illness: Patient was admitted with multiple medical problems and altered mental status. She was apparently found to be distended yesterday. She said she had a bowel movement yesterday. She is still passing flatus. She does not have much abdominal pain but she feels bloated. An NG tube was planned this morning but could not be inserted because the patient vomited. Patient's other medical problem consisted of low back pain and dementia and cholesterol. Patient was operated by mail last year and 2023 for incarcerated umbilical hernia. Past Medical History Past Medical History NEUROLOGIC: Negative Neurological Disorders or Seizures CARDIAC: Positive Cardiac Disorders, Hypercholesterolemia and Hypertension; Negative Congestive Heart Failure RESPIRATORY: Negative Respiratory Disorders, Chronic Obstructive Pulmonary Disease (COPD) or Asthma GASTROINTESTINAL: Positive Gastrointestinal Disorders and Obesity; Negative Hepatitis GENITOURINARY: Negative Genitourinary Disorders or Renal Disease REPRODUCTIVE: Positive Previous Pregnancies MUSCULOSKELETAL: Positive Musculoskeletal Disorders and Arthritis ENDOCRINE: Negative Endocrine Disorders, Diabetes Mellitus Type 1 or Diabetes Mellitus Type 2 HEMATOLOGIC: Positive Blood Disorders and Anemia; Negative Sickle Cell Disease OTHER HISTORY: Positive Hospitalization (knee infections), Chicken Pox and Measles; Negative Autoimmune Disease, Shingles, Blood Transfusions, Blood Transfusion Reaction, Anesthesia Reactions or Cancer Family History FAMILY HISTORY: Positive Family Cardiac Disorders; Negative Family Psychiatric Problems, Family Respiratory Disorders, Family Gastrointestinal Problems, Family Cancer, Family Surgery or Family Anesthesia Reaction Surgical History SURGICAL: Negative Abdominal Surgery Social History SMOKING STATUS: Never smoker Meds Home Medications and Allergies Home Medications ?Medication ?Instructions ?Recorded ?Confirmed ?Type losartan 100 mg tablet 100 mg PO QDAY 02/19/19 06/02/25 History ascorbic acid (vitamin C) 500 mg 500 mg PO QDAY 11/19/23 06/02/25 History tablet (Vitamin C) aspirin 81 mg tablet,delayed 81 mg PO QDAY 11/19/23 06/02/25 History release biotin 1 mg capsule 1 mg PO QDAY 11/19/23 06/02/25 History calcium 600 mg capsule 600 mg PO DAILY 11/19/23 06/02/25 History cholecalciferol (vitamin D3) 25 25 mcg PO QDAY 11/19/23 06/02/25 History mcg (1,000 unit) chewable tablet (Vitamin D3) meclizine 12.5 mg tablet 12.5 mg PO TID PRN Dizziness 11/19/23 06/02/25 History montelukast 10 mg tablet 10 mg PO QPM 11/19/23 06/02/25 History (Singulair) vitamin B12 0.5 mg-folic acid 1 mg 1 tab PO QDAY 11/19/23 06/02/25 History tablet atorvastatin 40 mg tablet 40 mg PO HS 06/02/25 06/02/25 History memantine 10 mg tablet 10 mg PO HS 06/02/25 06/02/25 History Allergies Allergy/AdvReac Type Severity Reaction Status Date / Time latex Allergy Severe RASH Verified 11/20/23 12:57 Exam Vital Signs Temp Pulse Resp BP Pulse Ox O2 Del Method O2 Flow Rate 96.7 F L 79 17 153/91 H 95 Room Air 3 06/07/25 08:00 06/07/25 08:00 06/07/25 08:00 06/07/25 08:00 06/07/25 08:00 06/07/25 08:00 06/07/25 08:00 FiO2 90 06/07/25 08:00 Narrative Exam Physical examination revealed an elderly lady who seems to answer some questions. Her vital signs are normal Routine Abdominal Exam Comments: Examination abdomen showed no gross distention and there is no tenderness. Bowel sounds are hypoactive. I could not do a rectal examination because of her position in the bed. Results Results: Laboratory Laboratory Narrative: Laboratory results show leukocytosis of 20,000. Her chemistry is within normal limits Results: Imaging Imaging narrative: Flatplate of the abdomen showed colonic ileus. But there is no gross dilatation of the large bowel and it is mild Assessment & Plan Additional Assessment Additional comments: Impression: Colonic ileus probably due to her confinement to bed Plan Plan: We shall try soapsuds enema and laxative. I do not know whether the patient has had a colonoscopy in the past. We shall wait for the response with enemas thank you
--- NOTE | 2025-06-07 13:06 | PD.NEPHPROG ---
Documentation for date of: 06/07/25 Subjective Subjective Interval history: Patient is a 80 year old female with PMH of new onset dementia, hypertension, HLD who presented with progressive confusion over the past month. History was obtained from patient's daughter Edilma due to patient's altered mental status. Patient has had ongoing memory issues for the past 2 months, AOx1 for the past month. Also had intermittent flulike symptoms for the past month including nonproductive cough, fatigue, and a 2 day episode of n/v and diarrhea (in mid April), all of which has progressively made her weaker and less active per daughter. Previously independent with ADLs. Daughter suspects patient has not been taking her medications for the past few weeks and her house has become more unkempt over the past month. Patient lives at home alone, daughter lives in [place] and visits every weekend. Noted to be slower to respond and more tired for the past 2 days. Daughter tried to call her yesterday around noon, was not responding. Law enforcement was called due to concern, patient was found naked in recliner, altered. Upon ED arrival, GCS 14. BP 143/86, all other vitals stable. WBC 20.7, hemoglobin 17.2. Sodium 148. Anion gap 17, bicarb 24.9. BUN 24, creatinine 1.0 (baseline 0.7-0.9). Glucose 134. Lactic 4.3, LDH 350, procal negative. Calcium 9.9, phosphorus 1.8, Mg 2.1. Total bili 2.3 but liver enzymes and alk phos within normal limits. Ammonia <10. Troponin negative, BNP WNL. EKG showed sinus rhythm with occasional PVCs, no ST abnormalities noted UA showed 1+ ketones and 1+ bilirubin, negative for UTI. Head CT negative for acute infarct. CT CAP showed cirrhosis but otherwise unremarkable. Given LR bolus x2, CFX x1 Patient admitted for acute encephalopathy and sepsis rule out, unclear infection source at this time. Past Medical History: as above Family History: noncontributory Surgical History: bilateral knee arthroscopy, bilateral heel bone spur surgery Social History: Denies history of smoking, denies current alcohol use, denies recreational drug use Current Medications: ASA 81 daily, atorvastatin 40 nightly, biotin 1 mg daily, vit D3, calcium 600 mg daily, cyclobenzaprine 5 mg prn, losartan 100 mg daily, meclizine prn, memantine 10 mg nightly, montelukast 10 mg nightly, vit B12 folic acid daily Allergies: Latex (rash) 06/02/25: Patient seen and assessed on telemetry. AOx1, at baseline. Following commands, able to respond to simple questions appropriately. Complaining of abdominal pain, ordered gallbladder US. Denies chest pain and shortness of breath. Appears hypovolemic, UOP 500 cc overnight, will give another LR bolus x2. BP 144/84, restart home losartan. WBC downtrending, started on Zosyn overnight. Potassium 2.7, repleted. Total bili 1.4 (from 2.3). BHB mildly elevated, possible starvation ketosis. Anion gap closing, lactic acid improving, will continue to monitor. Spoke to patient's daughter Edilma over phone, obtained more history and updated her on plan. Would like to get in touch with health and social care teacher for SNF placement. 06/03/25: Patient seen and assessed on telemetry. Conversational, back to baseline, AOx1. WBC 12.9. Potassium 2.8, repleted with 80 mEq orally. Lactic acidosis resolved. Bilirubin downtrending. Gall bladder US negative for obstruction or biliary dilation. Blood cultures negative for 24 hours. Continue Zosyn. Spoke with social, patient would like to be discharged to SNF. PT recommends SNF. Likely discharge tomorrow if blood cultures remain negative. 06/04/25: Patient seen and assessed on telemetry. At mental baseline. WBC continues to downtrend (11.1). CMP unremarkable. Blood cultures negative for 48 hours, discontinued abx. Updated patient's daughter. Pending authorization per health and social care teacher. Anticipate discharge to SNF tomorrow. 06/05/2025 patient currently seen in telemetry overnight she got confused and was given 1 dose of Risperdal and softly restrained. During lunchtime she is more alert and awake although still confused. Labs and medications have been reviewed. No evidence of any active infection. Will monitor today-suspect related to dementia with delirium related to the hospitalization. If no improvement will request neurology consult. CT brain was negative. 06/06/2025 patient currently seen in telemetry. She still seems to be slightly confused and having memory lapses. MRI brain ordered. Awaiting neurology evaluation. She had a bowel movement yesterday. Not ready for discharge to rehab. Labs have been stable. 06/07/2025 patient currently seen in telemetry. Still seems to be confused and having significant memory lapses. MRI showed no acute stroke. Teleneurology was consulted and I did talk to the physician. Apparently patient's mental status is related to her worsening dementia in the setting of metabolic encephalopathy from underlying pneumonia and a colonic ileus. Patient complaining of abdominal pain. Dr. Saxena was consulted. Did not think she needs any surgical intervention at this point. Recommended an MRI as patient has significant amount of stool. Patient currently on antibiotics for her pneumonia and elevated white count. Cultures ordered. Care discussed with the daughter at length.Patient refused NG tube despite several attempts. Will monitor closely. KUB showed colonic ileus. Review of Systems Review of Systems Narrative Review of Systems: Limited due to her mentation. Denies any chest pain, shortness of breath. Complaining of abdominal pain. Does have constipation. Significant memory lapses and confusion noted. Not restrained. Exam Vital Signs Temp Pulse Resp BP Pulse Ox O2 Del Method O2 Flow Rate 36.5 C 94 24 H 111/74 93 L Room Air 3 06/07/25 20:00 06/07/25 20:00 06/07/25 20:00 06/07/25 20:00 06/07/25 20:00 06/07/25 20:00 06/07/25 08:00 FiO2 90 06/07/25 08:00 Narrative Exam GENERAL APPEARANCE: Patient seems to be comfortable, adequately hydrated and nourished. Memory lapses noted HEENT: EOMI, PERRLA NECK: Neck supple, no JVD or bruit CARDIOVASCULAR: Heart regular, no murmurs LUNGS/CHEST: Chest clear to auscultation. No rales, rhonchi, wheezing ABDOMEN: Distended, discomfort noted. Bowel sounds faint EXTREMITIES: No edema, clubbing or cyanosis. SKIN: Skin exam normal without any rashes MUSCULOSKELETAL: In bed NEUROLOGICAL : Still having memory lapses. Off restraints Objective Labs 06/08/25 04:41 06/08/25 04:41 Labs: Laboratory Results - last 24 hr 06/07/25 04:24 WBC 20.1 H D RBC 4.84 Hgb 14.7 Hct 44.5 MCV 92 MCH 30.4 MCHC 33.0 RDW Std Deviation 53.1 H Plt Count 166 Neut % (Auto) 83 H Lymph % (Auto) 6 L [place] % (Auto) 10 Eos % (Auto) 0 Baso % (Auto) 0 Neut # (Auto) 16.6 H Lymph # (Auto) 1.2 [place] # (Auto) 1.9 H Eos # (Auto) 0.0 Baso # (Auto) 0.1 Immature Gran # (Auto) 0.22 H Absolute Nucleated RBC 0.04 H Immature Gran % 1 H Nucleated RBC % 0 Sodium 137 Potassium 4.6 D Chloride 104 Carbon Dioxide 22.1 Anion Gap 11 BUN 10 Creatinine 0.8 Estim Creat Clear Calc 64.1 eGFR > 60 BUN/Creatinine Ratio 13 Glucose 126 H Calculated Osmolality 274 L Calcium 9.7 Corrected Calcium 9.9 Total Bilirubin 0.8 AST 32 ALT 25 Alkaline Phosphatase 86 Total Protein 6.5 Albumin 3.7 Globulin 2.8 Albumin/Globulin Ratio 1.3 Assessment & Plan Additional Assessment & Plan Additional Plan: Patient is a 80 year old female with PMH of new onset dementia, hypertension, HLD who presented with progressive confusion over the past month, admitted to telemetry for acute encephalopathy and sepsis rule out, unclear infection source at this time. # Altered mental status secondary to metabolic encephalopathy and worsening underlying dementia per teleneurology. Continue with neurochecks, antibiotics for pneumonia. On memantine CT brain negative. MRI showed temporal atrophy consistent with dementia per teleneurology # Abdominal pain-KUB showed colonic ileus Surgical consultation requested. Dr. Dr. Saxena did not think patient needs surgery. Recommended soapsuds enema as that she has significant amount of stool. # Leukocytosis secondary to pneumonia on chest x-ray. Added to Zosyn. Sepsis rule out. Blood cultures negative # dementia Continue memantine-spoke to the daughter patient cannot take care of herself. She is not able to take care of her finances or medications due to her dementia. Daughter planning to move her to assisted living facility in [place] #HTN - Continue losartan 100 mg daily, metoprolol, hydralazine #HLD - Continue atorvastatin 40 mg nightly #Conjunctivitis - Appears to have conjunctivitis on exam, some crusty discharge around eyes - Possibly infection versus dry eyes iso hypovolemia Plan: - S/p gentamicin eye drops #Scattered colonic diverticulosis #Severe osteopenia #Diffuse thoracic lumbar degenerative disease - Incidental findings on CT CAP - No active treatment at this time - Outpatient follow up Time spent today more than 40 minutes regarding plan of care and disease management Health Maintenance Disposition: telemetry DVT prophylaxis: heparin SC GI prophylaxis: none Diet: cardiac CODE STATUS: FULL
--- NOTE | 2025-06-07 13:45 | PC.NURSE ---
[facility] contacted at approximately 1048, unable to get a tele cart d/t [facility] cart being in use. ED cart was needed for stroke alert. Charge nurse Buck contacted [facility] at approximately 1111, and awaiting for response back. Received response back at approximately 1335, report given and [facility] will be online when chart is reviewed.
--- NOTE | 2025-06-07 14:27 | PC.NURSE ---
NG tube placement attempted x2 patient vomiting. Dr. Saxena at bedside and recommends soap suds enema first.
--- NOTE | 2025-06-07 14:55 | PD.TNEURO ---
Tele Neuro Consultation Consultation Date 06/07/25 Most Recent Vital Signs Last Vital Signs Temp 96.8 F 06/07/25 12:00 Pulse 82 06/07/25 12:00 Resp 27 H 06/07/25 12:00 BP 127/92 H 06/07/25 12:00 Pulse Ox 95 06/07/25 12:00 O2 Del Method Room Air 06/07/25 12:00 O2 Flow Rate 3 06/07/25 08:00 FiO2 90 06/07/25 08:00 Laboratory-Coagulation Panel PT 13.5 Seconds (9.0-12.2) H 06/01/25 20:15 INR 1.3 (0.9-1.3) 06/01/25 20:15 APTT 28.8 Seconds (22.0-36.0) 06/01/25 20:15 Consultation Narrative [facility] TeleNeurology Consult Services Stat Consult Patient Name:???Kaia Carrillo Date of :???1945 Identification Number:??? Date of Service:???06/07/2025 09:06:26 Diagnosis:?G93.49 - Encephalopathy Multifactorial Impression 80yoF hx of HTN, HLD, dementia admitted for worsening AMS. On initial lab patient had lactic acidosis, suspect cause of AMS. After treatment she improved for a few days and got worse two days ago. On exam patient is oriented to self, follows simple commands, able to name physical objects, and read part of the sentences. She has symmetric movement in all extremities. No facial droop noted. She had MRI brain on 06/07 that was negative for acute finding, atrophy at bilateral temporal region noted. She was found to have colonic ileus on 06/06 and pneumonia on 06/07 CXR. There is elevated WBC of 20 on 06/07. Potential cause of worsening AMS includes ileus, pneumonia, delirium. There is no report of seizure-like activity. No focal deficit on exam. Patient is afebrile, appeared comfortable, did not complained of any headache or neck pain. No indication of ENVIRONMENTAL LABORATORY TECHNICIAN infection at this time. Recommend continue to treat underlying medical condition and start/continue delirium precaution. Avoid sedating medication when possible. With history of dementia, patient may need longer time to recover back to baseline. Once discharge, recommend follow up with neurology outpatient for further dementia management. - Check Vitamin B12 and TSH for other possible reversible cause of dementia if has not been done before. Recommendations: Our recommendations are outlined below. Laboratory Studies :Check B12/folate TSH Nursing Recommendations :Delirium precautions: Blinds open during the day, closed at night, frequent reorientation, minimize nighttime interruptions When possible avoid benzodiazepines, opioid pain medications, and anticholinergic medications DVT Prophylaxis :Choice of Primary Team Disposition :Neurology will sign off. Reconsult if Needed. Metrics: Callback Response Time: 06/07/2025 09:14:28 Primary Provider Notified of Diagnostic Impression and Management Plan on: 06/07/2025 14:44:50 ImagingMRI brain 06/07: There is very significant atrophy in the region of the sylvian cisterns and anterior temporal lobe bilaterally. There is significant abnormal patchy hyperintense signal noted throughout much of the brainstem consistent with chronic microvascular angiopathy. In particular there is very significant atrophy related to the middle and anterior temporal lobes on both sides and involving the insula. CXR 06/07: Significant pneumonia left base Abdomen XR 06/06: prominent colonic ileus CT CAP: Moderate vascular congestion. No pneumonia or pulmonary edema. Cirrhosis vs primary hepatocellular disease. No abdominal or pelvic abscess. Gallbladder ultrasound: normal common bile duct. Liver normal size lobular contour consider primary hepatocellular disease. LabsWBC 14 --> 20.1 Hgb 14.7, Plt 166 Na 137, Cr 0.8, Glu 126 LFT wnl BCX from 06/01: no growth BCx from 06/07 pending Chief Complaint: AMS History of Present Illness:Patient is a 80 year old Female. Patient came in for AMS. Came in for progressive confusion over the past month. Per H&P, patient had ongoing memory issue for the past 2 month, oriented x 1 past month. She had intermittent flu-like symptoms for the past month with nonproductive cough, fatigue, and 2 day episodes of N/V and diarrhea in mid April, all of which has progressive made her weaker and less active. She was previously independent with ADL. Daughter sees her every weekend and noticed patient's house become unkept over the past month, suspect not taking her medication. Daughter tried to call patient 05/31 afternoon, she did not answered. Law enforcement was called and patient was found naked in recliner, altered. On admission she has WBC 20, elevated LDH and lactic acid, UA negative for UTI. CT CAP neg for lobar PNA. She was started on Zosyn. Per progress note, patient was conversation on 06/03 and back to baseline, WBC down to 12.9 and plan to discharged to SNF. On 06/04 WBC continued to downtrend, remain at baseline. On 06/05, patient got confused overnight, received one dose of Risperdal and was softly restrained. 06/06 noted patient was slightly confused and having memory lapse. On 06/07, general surgery was consulted for colonic ileus, recommended enema and laxative. Consult today due to worsening confusion in the past two days. For the last two months patient was having memory issue, alert oriented to self. Flu-like symptoms. nonproductive cough, n/v, diarrhea. Seems weaker and less active. Daughter found patient naked at home and altered. Daughter thinks Past Medical History: Other PMH:? HTN, HLD, dementia Medications: Anticoagulant use:??Yes?Heparin ppx Antiplatelet use:?Yes?aspirin 81mg Reviewed EMR for current medications Allergies:? Reviewed Description:?Latex Social History: Smoking: No Family History: There is no family history of premature cerebrovascular disease pertinent to this consultation ROS : 14 Points Review of Systems was performed and was negative except mentioned in HPI. Past Surgical History: There Is No Surgical History Contributory To Today?s Visit Examination: BP(127/92),?Pulse(82), Neuro Exam: General:?Oriented, Person somnolent, wakes up easily with voice Oriented to name, , city. Not month. Speech:?very soft speaking, can barely hear her voice. Language:?Aphasia: Only identify one object on picture, able to name 4/4 physical objects, struggle to read sentences. Able to repeat sentence Face:?Symmetric: Facial Sensation:?Intact: Visual Agarwal:?Intact: Extraocular Movements:?Intact: Motor Exam:?No Drift: Sensation:?Intact: Coordination:?Intact: Spoke with :?Dr. Tony This consult was conducted in real time using interactive audio and video technology. Patient was informed of the technology being used for this visit and agreed to proceed. Patient located in hospital and provider located at home/office setting. Patient is being evaluated for possible acute neurologic impairment and high probability of imminent or life - threatening deterioration.I spent total of 60 minutes providing care to this patient, including time for face to face visit via telemedicine, review of medical records, imaging studies and discussion of findings with providers, the patient and / or family. Dr Reji Steele [facility] For Inpatient follow-up with [facility] physician please call [facility] at . As we are not an outpatient service for any post hospital discharge needs please contact the hospital for assistance. If you have any questions for the [facility] physicians or need to reconsult for clinical or diagnostic changes please contact us via [facility] at . Non-radiologist review of imaging performed to assist with emergent clinical decision-making. Remote physician workstations do not possess the same resolution, calibration, or diagnostic capabilities as hospital-based radiology reading stations, and formal radiologist read is necessary. Signature :Erica Steele
[2025-06-07] MEDS: ATORVASTATIN CALCIUM 20 MG TABLET 40 MG PO (21:23)
[2025-06-07] MEDS: MEMANTINE HCL 5 MG TABLET 10 MG PO (21:23)
[2025-06-07] MEDS: METOPROLOL TARTRATE 25 MG TABLET 50 MG PO (21:23)
[2025-06-08] VITALS (12 sets, daily range): BP systolic 94–127; BP diastolic 60–86; PULSE 62–99; RESP 18–26; TEMP 36–36.6; O2SAT 91–96; BMI 30.5
--- NOTE | 2025-06-08 00:15 | PC.NURSE ---
Soap rogelio enema administered as per MD Celso Cormier, pt tolerated well
[2025-06-08 05:29] LABS: Basophils # (Auto) 0.1 Thou/mm3 (0.0-0.2); Basophils % (Auto) 0 % (0-2.5); Eosinophils # (Auto) 0.1 Thou/mm3 (0.0-0.5); Eosinophils % (Auto) 0 % (0-10); Hematocrit 41.3 % (36.0-46.0); Hemoglobin 13.9 g/dL (12.0-16.0); Immature Granulocytes Auto 0.19 Thou/mm3 (0.00-0.00); Lymphocytes # (Auto) 1.7 Thou/mm3 (1.0-4.8); Lymphocytes % (Auto) 7 % (10-50); Mean Corpuscular HGB Conc 33.7 g/dl (31.0-37.0); Mean Corpuscular Hemoglobin 30.7 pg (25.0-35.0); Mean Corpuscular Volume 91 fL (80-100); Monocytes # (Auto) 2.4 Thou/mm3 (0.0-0.8); Monocytes % (Auto) 10 % (0-12); Neutrophils # (Auto) 18.6 Thou/mm3 (1.8-7.7); Neutrophils % (Auto) 81 % (37-80); Nucleated Red Blood Cell # 0.02 Thou/mm3 (0.00-0.00); Nucleated Red Blood Cell % 0 /100 WBC (0); Platelet Count 168 Thou/mm3 (140-440); RDW Standard Deviation 54.7 fL (36.4-46.3); Red Blood Count 4.53 Miln/mm3 (4.00-5.20); White Blood Count 23.0 Thou/mm3 (3.6-11.0)
[2025-06-08] MEDS: PIPER/TAZO 3.375 GM PREMIX 3.375 GM/50 ML BAG IV ×3 (06:17→18:19)
[2025-06-08 06:22] LABS: Alanine Aminotransferase 20 U/L (10-49); Albumin, Serum 3.5 gm/dL (3.4-4.8); Albumin/Globulin Ratio 1.3 (1.2-2.2); Alkaline Phosphatase 84 U/L (46-116); Anion Gap 11 (7-16); Aspartate Amino Transferase 22 U/L (0-34); BUN/Creatinine Ratio 15 Ratio (12-20); Bilirubin,Total 1.2 mg/dL (0.3-1.2); Blood Urea Nitrogen 15 mg/dL (9-23); Calcium 9.1 mg/dL (8.3-10.6); Calcium (Corrected) 9.5 mg/dL (8.5-10.1); Carbon Dioxide 20.4 mMol/L (20.0-31.0); Chloride 104 mMol/L (98-107); Creatinine (Component) 1.0 mg/dL (0.6-1.3); Estimated Creatinine Clearance 51.3 mL/min (>60); Globulin 2.7 gm/dL (2.3-3.5); Glucose 111 mg/dL (74-106); Osmolality,Calculated 271 (275-295); Potassium 4.7 mMol/L (3.4-5.1); Sodium 135 mMol/L (136-145); Total Protein 6.2 gm/dL (5.7-8.2); eGFR 58 See Note
[2025-06-08] MEDS: LOSARTAN POTASSIUM 25 MG TABLET 100 MG PO (09:36)
[2025-06-08] MEDS: LACTULOSE SYRUP 20 GM/30 ML UDC PO (09:36)
[2025-06-08] MEDS: MEMANTINE HCL 5 MG TABLET 10 MG PO ×2 (09:37→21:22)
[2025-06-08] MEDS: METOPROLOL TARTRATE 25 MG TABLET 50 MG PO ×2 (09:37→21:22)
--- NOTE | 2025-06-08 10:37 | PD.TNEUROPRO ---
Tele Neuro Progress Note Progress Note Date 06/08/25 Most Recent Vital Signs Last Vital Signs Temp 96.8 F 06/08/25 08:00 Pulse 79 06/08/25 09:37 Resp 24 H 06/08/25 08:00 BP 101/67 06/08/25 09:37 Pulse Ox 94 L 06/08/25 08:00 O2 Del Method Room Air 06/08/25 08:00 O2 Flow Rate 3 06/07/25 08:00 FiO2 90 06/07/25 08:00 Laboratory-Coagulation Panel PT 13.5 Seconds (9.0-12.2) H 06/01/25 20:15 INR 1.3 (0.9-1.3) 06/01/25 20:15 APTT 28.8 Seconds (22.0-36.0) 06/01/25 20:15 Progress Note Narrative [facility] TeleNeurology Consult Services Routine Consult Follow-Up Patient Name:???Kaia Carrillo Date of :???1945 Identification Number:??? Date of Service:???06/08/2025 10:36:55 Diagnosis?G93.49 - Encephalopathy Multifactorial Impression 80yoF hx of HTN, HLD, dementia admitted for worsening AMS. On initial lab patient had lactic acidosis, suspect cause of AMS. After treatment she improved for a few days and got worse two days ago. On exam patient is oriented to self, follows simple commands, able to name physical objects, and read part of the sentences. She has symmetric movement in all extremities. No facial droop noted. She had MRI brain on 06/07 that was negative for acute finding, atrophy at bilateral temporal region noted. She was found to have colonic ileus on 06/06 and pneumonia on 06/07 CXR. There is elevated WBC of 20 on 06/07. Potential cause of worsening AMS includes ileus, pneumonia, delirium. There is no report of seizure-like activity. No focal deficit on exam. Patient is afebrile, appeared comfortable, did not complained of any headache or neck pain. No indication of CLINICAL RN infection at this time. Recommend continue to treat underlying medical condition and start/continue delirium precaution. Avoid sedating medication when possible. With history of dementia, patient may need longer time to recover back to baseline. Once discharge, recommend follow up with neurology outpatient for further dementia management. - Check Vitamin B12 and TSH for other possible reversible cause of dementia if has not been done before. Neurology will sign off at this time. Call with any qustions or concerns. Our recommendations are outlined below Laboratory Studies : Check B12/folateTSH Nursing Recommendations : Delirium precautions: Blinds open during the day, closed at night, frequent reorientation, minimize nighttime interruptionsWhen possible avoid benzodiazepines, opioid pain medications, and anticholinergic medications Consultations : Toxic metabolic work up per primary team DVT Prophylaxis : Choice of Primary Team Disposition : Neurology will sign off. Reconsult if Needed.Outpatient Neurology follow up in 3-6 weeks Subjective PAtient seen this am. Imaging MRI brain 06/07: There is very significant atrophy in the region of the sylvian cisterns and anterior temporal lobe bilaterally. There is significant abnormal patchy hyperintense signal noted throughout much of the brainstem consistent with chronic microvascular angiopathy. In particular there is very significant atrophy related to the middle and anterior temporal lobes on both sides and involving the insula. CXR 06/07: Significant pneumonia left base Abdomen XR 06/06: prominent colonic ileus CT CAP: Moderate vascular congestion. No pneumonia or pulmonary edema. Cirrhosis vs primary hepatocellular disease. No abdominal or pelvic abscess. Gallbladder ultrasound: normal common bile duct. Liver normal size lobular contour consider primary hepatocellular disease. Labs WBC 14 --> 20.1 Hgb 14.7, Plt 166 Na 137, Cr 0.8, Glu 126 LFT wnl BCX from 06/01: no growth BCx from 06/07 pending ? Examination Neuro Exam: General:?Oriented, Person somnolent, wakes up easily with voice Oriented to name, , city. Not month. Speech:?very soft speaking, can barely hear her voice. Language:?Aphasia: Only identify one object on picture, able to name 4/4 physical objects, struggle to read sentences. Able to repeat sentence Face:?Symmetric: Facial Sensation:?Intact: Visual Agarwal:?Intact: Extraocular Movements:?Intact: Motor Exam:?No Drift: Sensation:?Intact: Coordination:?Intact: ? This consult was conducted in real time using interactive audio and video technology. Patient was informed of the technology being used for this visit and agreed to proceed. Patient located in hospital and provider located at home/office setting. Telehealth Neurology consultation was provided. I spent minutes providing telehealth care. This includes time spent for face to face visit via telemedicine, review of medical records, imaging studies and discussion of findings with providers, the patient and/or family. Dr Sampson Handy [facility] For Inpatient follow-up with [facility] physician please call [facility] at . As we are not an outpatient service for any post hospital discharge needs please contact the hospital for assistance. If you have any questions for the [facility] physicians or need to reconsult for clinical or diagnostic changes please contact us via [facility] at Signature :Gigi Handy
--- NOTE | 2025-06-08 12:26 | PC.NURSE ---
Pt had a small amount of liquid and began vomiting. Pt is having a lot of abdominal pain and is groaning. Abdomen is very distended. Not passing gas. Called Dr. Tony and made aware. Pt to be NPO. Consult to Dr. Neil. Will give Morphine for the pain and zofran for nausea. Will continue to assess patient.
[2025-06-08] MEDS: MORPHINE SULF INJ 4 MG/ML VIAL 1 MG IVP (12:42)
[2025-06-08] MEDS: ONDANSETRON INJ 2 MG/ML INJ 2 ML 4 MG IVP (12:43)
--- NOTE | 2025-06-08 13:27 | PC.NURSE ---
Pt is still in a lot of pain. 03/24. Groaning and when abdomen is touched patient shouts out in pain. Called Dr. Tony and made aware. New orders given.
[2025-06-08] MEDS: HYDROmorphone INJ 2 MG/ML VIAL 1 MG IVP ×2 (13:47→14:43)
--- NOTE | 2025-06-08 14:05 | PC.NURSE ---
Pt had Dilaudid for pain. Still very much in pain. Daughter at bedside. Concerned about her mother's unrelieved pain. Called Dr. Tony again and made aware. said she will contact one of the ICU doctors to come assess patient.
--- NOTE | 2025-06-08 14:12 | XR_ITS ---
Examination: Abdomen AP single view Technique: AP portable supine abdomen, single view Exam date and time: June 08, 2025, 1420 hours INDICATIONS: Abdominal pain and distention this week. FINDINGS: Prominent colonic ileus Severe osteopenia No free air IMPRESSION: Prominent colonic ileus
--- NOTE | 2025-06-08 14:56 | XR_ITS ---
EXAMINATION: AP chest single view TECHNIQUE: AP portable supine chest single view, comparison 01/05/2025 INDICATIONS: Post orogastric tube placement FINDINGS: Orogastric tube in the stomach satisfactory position Pneumonia left base obscuring detail left hemidiaphragm Mild prominence left ventricle IMPRESSION: Orogastric tube in the stomach satisfactory position
[2025-06-08] MEDS: SODIUM CHLORIDE 0.9% 1000 ML 1,000 ML 150 ML IV (15:00)
[2025-06-08] MEDS: LACTULOSE SYRUP 20 GM/30 ML UDC PR (16:10)
--- NOTE | 2025-06-08 16:55 | PD.IMCONS ---
HPI Data of Consult Requesting Physician: Radu Tony MD Primary Care Provider: Radu Tony MD Consult Narrative Reason for consult: Colonic ileus, bloating History of present illness: 80 years female has been here since 06/01/2024 admitted with altered mental status in the setting of progressive dementia I been consulted for on abdominal x-ray had a colonic ileus which has been repeated again shows less colonic ileus Soapsuds enemas have been also given and patient did have a small bowel movement cc:: cc: Raud Tony MD Review of Systems Review of Systems ROS Unobtainable: unobtainable due to medical condition Past Medical History Surgical History OTHER SURGICAL HX: Essential hypertension Early onset dementia Meds Home Medications and Allergies Home Medications ?Medication ?Instructions ?Recorded ?Confirmed ?Type losartan 100 mg tablet 100 mg PO QDAY 02/19/19 06/02/25 History ascorbic acid (vitamin C) 500 mg 500 mg PO QDAY 11/19/23 06/02/25 History tablet (Vitamin C) aspirin 81 mg tablet,delayed 81 mg PO QDAY 11/19/23 06/02/25 History release biotin 1 mg capsule 1 mg PO QDAY 11/19/23 06/02/25 History calcium 600 mg capsule 600 mg PO DAILY 11/19/23 06/02/25 History cholecalciferol (vitamin D3) 25 25 mcg PO QDAY 11/19/23 06/02/25 History mcg (1,000 unit) chewable tablet (Vitamin D3) meclizine 12.5 mg tablet 12.5 mg PO TID PRN Dizziness 11/19/23 06/02/25 History montelukast 10 mg tablet 10 mg PO QPM 11/19/23 06/02/25 History (Singulair) vitamin B12 0.5 mg-folic acid 1 mg 1 tab PO QDAY 11/19/23 06/02/25 History tablet atorvastatin 40 mg tablet 40 mg PO HS 06/02/25 06/02/25 History memantine 10 mg tablet 10 mg PO HS 06/02/25 06/02/25 History Allergies Allergy/AdvReac Type Severity Reaction Status Date / Time latex Allergy Severe RASH Verified 11/20/23 12:57 Exam Vital Signs Temp Pulse Resp BP Pulse Ox O2 Del Method O2 Flow Rate 97.6 F 90 18 104/75 91 L Room Air 3 06/08/25 16:00 06/08/25 16:00 06/08/25 16:00 06/08/25 16:00 06/08/25 16:00 06/08/25 16:00 06/07/25 08:00 FiO2 90 06/07/25 08:00 Constitutional Comments: Chronically ill-appearing Routine Abdominal Exam Comments: Somewhat distended positive bowel sounds Results Labs 06/08/25 04:41 06/08/25 04:41 Labs: Short CBC 06/08/25 Range/Units 04:41 WBC 23.0 H (3.6-11.0) Thou/mm3 Hgb 13.9 (12.0-16.0) g/dL Hct 41.3 (36.0-46.0) % Plt Count 168 (140-440) Thou/mm3 BMP 06/08/25 04:41 Sodium 135 L Potassium 4.7 Chloride 104 Carbon Dioxide 20.4 BUN 15 Creatinine 1.0 Glucose 111 H Calcium 9.1 Liver Function 06/08/25 Range/Units 04:41 Total Bilirubin 1.2 (0.3-1.2) mg/dL AST 22 (0-34) U/L ALT 20 (10-49) U/L Alkaline Phosphatase 84 (46-116) U/L Albumin 3.5 (3.4-4.8) gm/dL Assessment and Plan Additional Assessment & Plan Additional Plan: # Colonic ileus No signs of any obstruction Abdominal x-ray done 2 days ago showed small intestine prominence but no air-fluid levels Patient most likely has colonic inertia Agree with a subset enemas Rectal tube for 24 hours and repeat x-ray tomorrow No need for a colonoscopy at this point has been extremely difficult to prep the colon for colonoscopy in this patient with altered mental status Will continue to follow Other medical problems include Dementia Essential hypertension Thank you very much for the opportunity to participate in the care of this patient
[2025-06-08] MEDS: METOCLOPRAMIDE INJ 5 MG/ML VIAL 2 ML 10 MG IVP (19:23)
--- NOTE | 2025-06-08 20:17 | PD.NEPHPROG ---
Documentation for date of: 06/08/25 Subjective Subjective Interval history: Patient is a 80 year old female with PMH of new onset dementia, hypertension, HLD who presented with progressive confusion over the past month. History was obtained from patient's daughter Edilma due to patient's altered mental status. Patient has had ongoing memory issues for the past 2 months, AOx1 for the past month. Also had intermittent flulike symptoms for the past month including nonproductive cough, fatigue, and a 2 day episode of n/v and diarrhea (in mid April), all of which has progressively made her weaker and less active per daughter. Previously independent with ADLs. Daughter suspects patient has not been taking her medications for the past few weeks and her house has become more unkempt over the past month. Patient lives at home alone, daughter lives in [place] and visits every weekend. Noted to be slower to respond and more tired for the past 2 days. Daughter tried to call her yesterday around noon, was not responding. Law enforcement was called due to concern, patient was found naked in recliner, altered. Upon ED arrival, GCS 14. BP 143/86, all other vitals stable. WBC 20.7, hemoglobin 17.2. Sodium 148. Anion gap 17, bicarb 24.9. BUN 24, creatinine 1.0 (baseline 0.7-0.9). Glucose 134. Lactic 4.3, LDH 350, procal negative. Calcium 9.9, phosphorus 1.8, Mg 2.1. Total bili 2.3 but liver enzymes and alk phos within normal limits. Ammonia <10. Troponin negative, BNP WNL. EKG showed sinus rhythm with occasional PVCs, no ST abnormalities noted UA showed 1+ ketones and 1+ bilirubin, negative for UTI. Head CT negative for acute infarct. CT CAP showed cirrhosis but otherwise unremarkable. Given LR bolus x2, CFX x1 Patient admitted for acute encephalopathy and sepsis rule out, unclear infection source at this time. Past Medical History: as above Family History: noncontributory Surgical History: bilateral knee arthroscopy, bilateral heel bone spur surgery Social History: Denies history of smoking, denies current alcohol use, denies recreational drug use Current Medications: ASA 81 daily, atorvastatin 40 nightly, biotin 1 mg daily, vit D3, calcium 600 mg daily, cyclobenzaprine 5 mg prn, losartan 100 mg daily, meclizine prn, memantine 10 mg nightly, montelukast 10 mg nightly, vit B12 folic acid daily Allergies: Latex (rash) 06/02/25: Patient seen and assessed on telemetry. AOx1, at baseline. Following commands, able to respond to simple questions appropriately. Complaining of abdominal pain, ordered gallbladder US. Denies chest pain and shortness of breath. Appears hypovolemic, UOP 500 cc overnight, will give another LR bolus x2. BP 144/84, restart home losartan. WBC downtrending, started on Zosyn overnight. Potassium 2.7, repleted. Total bili 1.4 (from 2.3). BHB mildly elevated, possible starvation ketosis. Anion gap closing, lactic acid improving, will continue to monitor. Spoke to patient's daughter Edilma over phone, obtained more history and updated her on plan. Would like to get in touch with psychosocial rehabilitation counselor for SNF placement. 06/03/25: Patient seen and assessed on telemetry. Conversational, back to baseline, AOx1. WBC 12.9. Potassium 2.8, repleted with 80 mEq orally. Lactic acidosis resolved. Bilirubin downtrending. Gall bladder US negative for obstruction or biliary dilation. Blood cultures negative for 24 hours. Continue Zosyn. Spoke with social, patient would like to be discharged to SNF. PT recommends SNF. Likely discharge tomorrow if blood cultures remain negative. 06/04/25: Patient seen and assessed on telemetry. At mental baseline. WBC continues to downtrend (11.1). CMP unremarkable. Blood cultures negative for 48 hours, discontinued abx. Updated patient's daughter. Pending authorization per psychosocial rehabilitation counselor. Anticipate discharge to SNF tomorrow. 06/05/2025 patient currently seen in telemetry overnight she got confused and was given 1 dose of Risperdal and softly restrained. During lunchtime she is more alert and awake although still confused. Labs and medications have been reviewed. No evidence of any active infection. Will monitor today-suspect related to dementia with delirium related to the hospitalization. If no improvement will request neurology consult. CT brain was negative. 06/06/2025 patient currently seen in telemetry. She still seems to be slightly confused and having memory lapses. MRI brain ordered. Awaiting neurology evaluation. She had a bowel movement yesterday. Not ready for discharge to rehab. Labs have been stable. 06/07/2025 patient currently seen in telemetry. Still seems to be confused and having significant memory lapses. MRI showed no acute stroke. Teleneurology was consulted and I did talk to the physician. Apparently patient's mental status is related to her worsening dementia in the setting of metabolic encephalopathy from underlying pneumonia and a colonic ileus. Patient complaining of abdominal pain. Dr. Saxena was consulted. Did not think she needs any surgical intervention at this point. Recommended an MRI as patient has significant amount of stool. Patient currently on antibiotics for her pneumonia and elevated white count. Cultures ordered. Care discussed with the daughter at length.Patient refused NG tube despite several attempts. Will monitor closely. KUB showed colonic ileus. 06/08/2025 patient currently seen in telemetry. Complaining of abdominal distention. saw patient-recommended to continue with soapsuds enema. After he left the hospital the nurse called that patient still continues to have abdominal pain. ICU consultation requested. Team recommended to continue with soapsuds enema and they ordered an NG tube which patient agreed today. Dilaudid was given for pain. Dr. Neil was consulted for colonic ileus. He recommended soapsuds enema. White count still elevated-currently on antibiotics for pneumonia. Blood cultures negative. Blood pressure on the soft side. Fluids were given. Will hold off on blood pressure medications. Care discussed with the daughter at length. Time spent more than 40 minutes regarding plan of care and disease management Review of Systems Review of Systems Narrative Review of Systems: Limited due to her mentation. Denies any chest pain, shortness of breath. Complaining of abdominal pain. Does have constipation. Significant memory lapses and confusion noted. Not restrained. Exam Vital Signs Temp Pulse Resp BP Pulse Ox O2 Del Method O2 Flow Rate 36.1 C 69 19 127/73 92 L Room Air 3 06/08/25 20:00 06/08/25 20:00 06/08/25 20:00 06/08/25 20:00 06/08/25 20:00 06/08/25 20:00 06/07/25 08:00 FiO2 90 06/07/25 08:00 Narrative Exam GENERAL APPEARANCE: Patient currently seems in pain from abdomen HEENT: EOMI, PERRLA NECK: Neck supple, no JVD or bruit CARDIOVASCULAR: Heart regular, no murmurs LUNGS/CHEST: Chest clear to auscultation. No rales, rhonchi, wheezing ABDOMEN: Distended, discomfort noted. Bowel sounds faint EXTREMITIES: No edema, clubbing or cyanosis. SKIN: Skin exam normal without any rashes MUSCULOSKELETAL: In bed NEUROLOGICAL : Still having memory lapses. Off restraints Objective Labs 06/08/25 04:41 06/08/25 04:41 Labs: Laboratory Results - last 24 hr 06/08/25 04:41 WBC 23.0 H RBC 4.53 Hgb 13.9 Hct 41.3 MCV 91 MCH 30.7 MCHC 33.7 RDW Std Deviation 54.7 H Plt Count 168 Neut % (Auto) 81 H Lymph % (Auto) 7 L Dundy % (Auto) 10 Eos % (Auto) 0 Baso % (Auto) 0 Neut # (Auto) 18.6 H Lymph # (Auto) 1.7 Dundy # (Auto) 2.4 H Eos # (Auto) 0.1 Baso # (Auto) 0.1 Immature Gran # (Auto) 0.19 H Absolute Nucleated RBC 0.02 H Immature Gran % 1 H Nucleated RBC % 0 Sodium 135 L Potassium 4.7 Chloride 104 Carbon Dioxide 20.4 Anion Gap 11 BUN 15 Creatinine 1.0 Estim Creat Clear Calc 51.3 L eGFR 58 L BUN/Creatinine Ratio 15 Glucose 111 H Calculated Osmolality 271 L Calcium 9.1 Corrected Calcium 9.5 Total Bilirubin 1.2 AST 22 ALT 20 Alkaline Phosphatase 84 Total Protein 6.2 Albumin 3.5 Globulin 2.7 Albumin/Globulin Ratio 1.3 Assessment & Plan Additional Assessment & Plan Additional Plan: Patient is a 80 year old female with PMH of new onset dementia, hypertension, HLD who presented with progressive confusion over the past month, admitted to telemetry for acute encephalopathy and sepsis rule out, unclear infection source at this time. # Altered mental status secondary to metabolic encephalopathy and worsening underlying dementia per teleneurology. Continue with neurochecks, antibiotics for pneumonia. On memantine CT brain negative. MRI showed temporal atrophy consistent with dementia per teleneurology # Abdominal pain-KUB showed colonic ileus Surgical consultation requested. Dr. Saxena did not think patient needs surgery. Recommended soapsuds enema as that she has significant amount of stool. Patient agreed for NG tube. Odalis Reggaby given. Dr. Neil was consulted ICU was consulted # Leukocytosis secondary to pneumonia on chest x-ray. Added to Zosyn. Sepsis rule out. Blood cultures negative # dementia Continue memantine-spoke to the daughter patient cannot take care of herself. She is not able to take care of her finances or medications due to her dementia. Daughter planning to move her to assisted living facility in [place] #HTN - Continue metoprolol, hydralazine Held the losartan blood pressure on the lower side #HLD - Continue atorvastatin 40 mg nightly #Conjunctivitis - Appears to have conjunctivitis on exam, some crusty discharge around eyes - Possibly infection versus dry eyes iso hypovolemia Plan: - S/p gentamicin eye drops #Scattered colonic diverticulosis #Severe osteopenia #Diffuse thoracic lumbar degenerative disease - Incidental findings on CT CAP - No active treatment at this time - Outpatient follow up Time spent today more than 40 minutes regarding plan of care and disease management Health Maintenance Disposition: telemetry DVT prophylaxis: heparin SC GI prophylaxis: none Diet: cardiac CODE STATUS: FULL
[2025-06-08] MEDS: ATORVASTATIN CALCIUM 20 MG TABLET 40 MG PO (21:21)
[2025-06-09] VITALS (19 sets, daily range): BP systolic 68–125; BP diastolic 48–74; PULSE 66–128; RESP 16–94; TEMP 35.4–36.3; O2SAT 80–97
[2025-06-09] MEDS: PIPER/TAZO 3.375 GM PREMIX 3.375 GM/50 ML BAG IV ×4 (00:26→22:28)
[2025-06-09] MEDS: KETOROLAC INJ 30 MG/ML VIAL 15 MG IVP (04:15)
[2025-06-09 06:20] LABS: Basophils # (Auto) 0.0 Thou/mm3 (0.0-0.2); Basophils % (Auto) 0 % (0-2.5); Eosinophils # (Auto) 0.0 Thou/mm3 (0.0-0.5); Eosinophils % (Auto) 0 % (0-10); Hematocrit 42.2 % (36.0-46.0); Hemoglobin 13.7 g/dL (12.0-16.0); Immature Granulocytes Auto 0.08 Thou/mm3 (0.00-0.00); Lymphocytes # (Auto) 0.8 Thou/mm3 (1.0-4.8); Lymphocytes % (Auto) 6 % (10-50); Mean Corpuscular HGB Conc 32.5 g/dl (31.0-37.0); Mean Corpuscular Hemoglobin 30.0 pg (25.0-35.0); Mean Corpuscular Volume 92 fL (80-100); Monocytes # (Auto) 0.7 Thou/mm3 (0.0-0.8); Monocytes % (Auto) 6 % (0-12); Neutrophils # (Auto) 10.6 Thou/mm3 (1.8-7.7); Neutrophils % (Auto) 87 % (37-80); Nucleated Red Blood Cell # 0.00 Thou/mm3 (0.00-0.00); Nucleated Red Blood Cell % 0 /100 WBC (0); Platelet Count 192 Thou/mm3 (140-440); RDW Standard Deviation 56.0 fL (36.4-46.3); Red Blood Count 4.57 Miln/mm3 (4.00-5.20); White Blood Count 12.2 Thou/mm3 (3.6-11.0)
[2025-06-09 06:33] LABS: Alanine Aminotransferase 19 U/L (10-49); Albumin, Serum 3.5 gm/dL (3.4-4.8); Albumin/Globulin Ratio 1.3 (1.2-2.2); Alkaline Phosphatase 77 U/L (46-116); Anion Gap 17 (7-16); Aspartate Amino Transferase 19 U/L (0-34); BUN/Creatinine Ratio 14 Ratio (12-20); Bilirubin,Total 1.4 mg/dL (0.3-1.2); Blood Urea Nitrogen 31 mg/dL (9-23); Calcium 9.3 mg/dL (8.3-10.6); Calcium (Corrected) 9.7 mg/dL (8.5-10.1); Carbon Dioxide 20.3 mMol/L (20.0-31.0); Chloride 102 mMol/L (98-107); Creatinine (Component) 2.2 mg/dL (0.6-1.3); Estimated Creatinine Clearance 23.1 mL/min (>60); Globulin 2.8 gm/dL (2.3-3.5); Glucose 135 mg/dL (74-106); Osmolality,Calculated 286 (275-295); Potassium 4.9 mMol/L (3.4-5.1); Sodium 139 mMol/L (136-145); Total Protein 6.3 gm/dL (5.7-8.2); eGFR 22 See Note
--- NOTE | 2025-06-09 08:06 | XR_ITS ---
Examination: Retroperitoneal ultrasound, complete Technique: Multiple high resolution grayscale images of the retroperitoneum obtained, including kidneys and bladder. Exam date and time: June 09, 2025, 0836 hours INDICATIONS: Renal insufficiency on laboratory examination this week FINDINGS: Right kidney 8.7 cm renal cortex 1.7 cm Left kidney 8.5 cm renal cortex 1.2 cm Cysts 8 mm mid pole left renal calculus,. Moderate renal scar formation No bladder mass or bladder calculi Bladder prevoid volume 712 cc IMPRESSION: Small kidneys with bilateral renal cortical thinning 8 mm nonobstructing left renal calculus Moderate renal scar formation
[2025-06-09] MEDS: LACTULOSE SYRUP 20 GM/30 ML UDC PO (08:57)
[2025-06-09] MEDS: MEMANTINE HCL 5 MG TABLET 10 MG PO (08:57)
[2025-06-09] MEDS: MORPHINE SULF INJ 4 MG/ML VIAL 1 MG IVP (09:10)
[2025-06-09] MEDS: RINGERS LACTATED 1000 ML 1,000 ML 125 ML IV (09:28)
[2025-06-09] MEDS: HYDROmorphone INJ 2 MG/ML VIAL 1 MG IVP ×2 (10:11→21:15)
--- NOTE | 2025-06-09 12:07 | PD.NEPHPROG ---
Documentation for date of: 06/09/25 Subjective Subjective Interval history: Patient is a 80 year old female with PMH of new onset dementia, hypertension, HLD who presented with progressive confusion over the past month. History was obtained from patient's daughter Edilma due to patient's altered mental status. Patient has had ongoing memory issues for the past 2 months, AOx1 for the past month. Also had intermittent flulike symptoms for the past month including nonproductive cough, fatigue, and a 2 day episode of n/v and diarrhea (in mid April), all of which has progressively made her weaker and less active per daughter. Previously independent with ADLs. Daughter suspects patient has not been taking her medications for the past few weeks and her house has become more unkempt over the past month. Patient lives at home alone, daughter lives in [place] and visits every weekend. Noted to be slower to respond and more tired for the past 2 days. Daughter tried to call her yesterday around noon, was not responding. Law enforcement was called due to concern, patient was found naked in recliner, altered. Upon ED arrival, GCS 14. BP 143/86, all other vitals stable. WBC 20.7, hemoglobin 17.2. Sodium 148. Anion gap 17, bicarb 24.9. BUN 24, creatinine 1.0 (baseline 0.7-0.9). Glucose 134. Lactic 4.3, LDH 350, procal negative. Calcium 9.9, phosphorus 1.8, Mg 2.1. Total bili 2.3 but liver enzymes and alk phos within normal limits. Ammonia <10. Troponin negative, BNP WNL. EKG showed sinus rhythm with occasional PVCs, no ST abnormalities noted UA showed 1+ ketones and 1+ bilirubin, negative for UTI. Head CT negative for acute infarct. CT CAP showed cirrhosis but otherwise unremarkable. Given LR bolus x2, CFX x1 Patient admitted for acute encephalopathy and sepsis rule out, unclear infection source at this time. Past Medical History: as above Family History: noncontributory Surgical History: bilateral knee arthroscopy, bilateral heel bone spur surgery Social History: Denies history of smoking, denies current alcohol use, denies recreational drug use Current Medications: ASA 81 daily, atorvastatin 40 nightly, biotin 1 mg daily, vit D3, calcium 600 mg daily, cyclobenzaprine 5 mg prn, losartan 100 mg daily, meclizine prn, memantine 10 mg nightly, montelukast 10 mg nightly, vit B12 folic acid daily Allergies: Latex (rash) 06/02/25: Patient seen and assessed on telemetry. AOx1, at baseline. Following commands, able to respond to simple questions appropriately. Complaining of abdominal pain, ordered gallbladder US. Denies chest pain and shortness of breath. Appears hypovolemic, UOP 500 cc overnight, will give another LR bolus x2. BP 144/84, restart home losartan. WBC downtrending, started on Zosyn overnight. Potassium 2.7, repleted. Total bili 1.4 (from 2.3). BHB mildly elevated, possible starvation ketosis. Anion gap closing, lactic acid improving, will continue to monitor. Spoke to patient's daughter Edilma over phone, obtained more history and updated her on plan. Would like to get in touch with social science professor for SNF placement. 06/03/25: Patient seen and assessed on telemetry. Conversational, back to baseline, AOx1. WBC 12.9. Potassium 2.8, repleted with 80 mEq orally. Lactic acidosis resolved. Bilirubin downtrending. Gall bladder US negative for obstruction or biliary dilation. Blood cultures negative for 24 hours. Continue Zosyn. Spoke with social, patient would like to be discharged to SNF. PT recommends SNF. Likely discharge tomorrow if blood cultures remain negative. 06/04/25: Patient seen and assessed on telemetry. At mental baseline. WBC continues to downtrend (11.1). CMP unremarkable. Blood cultures negative for 48 hours, discontinued abx. Updated patient's daughter. Pending authorization per social science professor. Anticipate discharge to SNF tomorrow. 06/05/2025 patient currently seen in telemetry overnight she got confused and was given 1 dose of Risperdal and softly restrained. During lunchtime she is more alert and awake although still confused. Labs and medications have been reviewed. No evidence of any active infection. Will monitor today-suspect related to dementia with delirium related to the hospitalization. If no improvement will request neurology consult. CT brain was negative. 06/06/2025 patient currently seen in telemetry. She still seems to be slightly confused and having memory lapses. MRI brain ordered. Awaiting neurology evaluation. She had a bowel movement yesterday. Not ready for discharge to rehab. Labs have been stable. 06/07/2025 patient currently seen in telemetry. Still seems to be confused and having significant memory lapses. MRI showed no acute stroke. Teleneurology was consulted and I did talk to the physician. Apparently patient's mental status is related to her worsening dementia in the setting of metabolic encephalopathy from underlying pneumonia and a colonic ileus. Patient complaining of abdominal pain. Dr. Saxena was consulted. Did not think she needs any surgical intervention at this point. Recommended an MRI as patient has significant amount of stool. Patient currently on antibiotics for her pneumonia and elevated white count. Cultures ordered. Care discussed with the daughter at length.Patient refused NG tube despite several attempts. Will monitor closely. KUB showed colonic ileus. 06/08/2025 patient currently seen in telemetry. Complaining of abdominal distention. saw patient-recommended to continue with soapsuds enema. After he left the hospital the nurse called that patient still continues to have abdominal pain. ICU consultation requested. Team recommended to continue with soapsuds enema and they ordered an NG tube which patient agreed today. Dilaudid was given for pain. Dr. Neil was consulted for colonic ileus. He recommended soapsuds enema. White count still elevated-currently on antibiotics for pneumonia. Blood cultures negative. Blood pressure on the soft side. Fluids were given. Will hold off on blood pressure medications. Care discussed with the daughter at length. Time spent more than 40 minutes regarding plan of care and disease management 06/09/[address] Neil-ordered GoLytely. Less abdominal distention compared to yesterday. Dr. Saxena did not think she needs any surgical intervention. Patient continues to have memory lapses and is softly restrained due to her altered mental status. Seen in telemetry. Blood pressure seems to be on the lower side. Held BP medications. IV fluids were given. WBC markedly improved to 12.2, hemoglobin 13.7, platelets 192. Creatinine elevated to 2.2. Renal ultrasound showed significant bladder distention. Ferrer catheter was inserted. Strict I&O's will be ordered. Patient has a rectal tube and is passing gas. She has colonic ileus. Review of Systems Review of Systems Narrative Review of Systems: Limited due to her mentation. Denies any chest pain, shortness of breath. Complaining of abdominal pain. Does have constipation. Significant memory lapses and confusion noted. restrained. Exam Vital Signs Temp Pulse Resp BP Pulse Ox O2 Del Method O2 Flow Rate 36.1 C 73 26 H 95/66 91 L Oxy Mask 3 06/09/25 08:00 06/09/25 08:00 06/09/25 08:00 06/09/25 08:00 06/09/25 08:00 06/09/25 08:00 06/07/25 08:00 FiO2 90 06/07/25 08:00 Narrative Exam GENERAL APPEARANCE: Patient currently seems in pain from abdomen HEENT: EOMI, PERRLA NECK: Neck supple, no JVD or bruit CARDIOVASCULAR: Heart regular, no murmurs LUNGS/CHEST: Chest clear to auscultation. No rales, rhonchi, wheezing ABDOMEN: Distended, discomfort noted. Bowel sounds ++. Distention tad better than yesterday. She has NG tube and rectal tube. EXTREMITIES: No edema, clubbing or cyanosis. SKIN: Skin exam normal without any rashes MUSCULOSKELETAL: In bed NEUROLOGICAL : Still having memory lapses. On restraints Objective Labs 06/09/25 05:35 06/09/25 05:35 Labs: Laboratory Results - last 24 hr 06/09/25 05:35 WBC 12.2 H D RBC 4.57 Hgb 13.7 Hct 42.2 MCV 92 MCH 30.0 MCHC 32.5 RDW Std Deviation 56.0 H Plt Count 192 Neut % (Auto) 87 H Lymph % (Auto) 6 L Hayes % (Auto) 6 Eos % (Auto) 0 Baso % (Auto) 0 Neut # (Auto) 10.6 H Lymph # (Auto) 0.8 L Hayes # (Auto) 0.7 Eos # (Auto) 0.0 Baso # (Auto) 0.0 Immature Gran # (Auto) 0.08 H Absolute Nucleated RBC 0.00 Immature Gran % 1 H Nucleated RBC % 0 Sodium 139 Potassium 4.9 Chloride 102 Carbon Dioxide 20.3 Anion Gap 17 H BUN 31 H Creatinine 2.2 H D Estim Creat Clear Calc 23.1 L eGFR 22 L BUN/Creatinine Ratio 14 Glucose 135 H Calculated Osmolality 286 Calcium 9.3 Corrected Calcium 9.7 Total Bilirubin 1.4 H AST 19 ALT 19 Alkaline Phosphatase 77 Total Protein 6.3 Albumin 3.5 Globulin 2.8 Albumin/Globulin Ratio 1.3 Assessment & Plan Additional Assessment & Plan Additional Plan: Patient is a 80 year old female with PMH of new onset dementia, hypertension, HLD who presented with progressive confusion over the past month, admitted to telemetry for acute encephalopathy and sepsis rule out, unclear infection source at this time. # Altered mental status secondary to metabolic encephalopathy and worsening underlying dementia per teleneurology. Continue with neurochecks, antibiotics for pneumonia. On memantine CT brain negative. MRI showed temporal atrophy consistent with dementia per teleneurology # Abdominal pain-KUB showed colonic ileus Surgical consultation requested. Dr. Saxena did not think patient needs surgery. Recommended soapsuds enema as that she has significant amount of stool. Patient has NG tube. Dilaudid, Reglan given. Dr. Neil ordered GoLytely and rectal tube along with NG tube. # Urinary retention//CITLALY Ferrer catheter inserted. IV fluids given held all BP meds # Leukocytosis secondary to pneumonia on chest x-ray. Added to Zosyn. Sepsis rule out. Blood cultures negative WBC improving # dementia Continue memantine-spoke to the daughter patient cannot take care of herself. She is not able to take care of her finances or medications due to her dementia. Daughter planning to move her to assisted living facility in [place] #HTN Held the losartan, metoprolol, hydralazine-blood pressure on the lower side #HLD - held atorvastatin 40 mg nightly #Conjunctivitis - Appears to have conjunctivitis on exam, some crusty discharge around eyes - Possibly infection versus dry eyes iso hypovolemia Plan: - S/p gentamicin eye drops #Scattered colonic diverticulosis #Severe osteopenia #Diffuse thoracic lumbar degenerative disease - Incidental findings on CT CAP - No active treatment at this time - Outpatient follow up Time spent today more than 40 minutes regarding plan of care and disease management Health Maintenance Disposition: telemetry DVT prophylaxis: heparin SC GI prophylaxis: Protonix Diet: NPO CODE STATUS: FULL
--- NOTE | 2025-06-09 12:33 | PD.IMPROG ---
Documentation for date of: 06/09/25 Subjective Subjective Interval history: Abdominal intervention somewhat less with the rectal tube but not much effluent in the bag Will start the patient on GoLytely Exam Vital Signs Temp Pulse Resp BP Pulse Ox O2 Del Method O2 Flow Rate 96.9 F 73 26 H 95/66 91 L Oxy Mask 3 06/09/25 08:00 06/09/25 08:00 06/09/25 08:00 06/09/25 08:00 06/09/25 08:00 06/09/25 08:00 06/07/25 08:00 FiO2 90 06/07/25 08:00 Objective Labs 06/09/25 05:35 06/09/25 05:35 Labs: Laboratory Results - last 24 hr 06/09/25 05:35 WBC 12.2 H D RBC 4.57 Hgb 13.7 Hct 42.2 MCV 92 MCH 30.0 MCHC 32.5 RDW Std Deviation 56.0 H Plt Count 192 Neut % (Auto) 87 H Lymph % (Auto) 6 L Hubbard % (Auto) 6 Eos % (Auto) 0 Baso % (Auto) 0 Neut # (Auto) 10.6 H Lymph # (Auto) 0.8 L Hubbard # (Auto) 0.7 Eos # (Auto) 0.0 Baso # (Auto) 0.0 Immature Gran # (Auto) 0.08 H Absolute Nucleated RBC 0.00 Immature Gran % 1 H Nucleated RBC % 0 Sodium 139 Potassium 4.9 Chloride 102 Carbon Dioxide 20.3 Anion Gap 17 H BUN 31 H Creatinine 2.2 H D Estim Creat Clear Calc 23.1 L eGFR 22 L BUN/Creatinine Ratio 14 Glucose 135 H Calculated Osmolality 286 Calcium 9.3 Corrected Calcium 9.7 Total Bilirubin 1.4 H AST 19 ALT 19 Alkaline Phosphatase 77 Total Protein 6.3 Albumin 3.5 Globulin 2.8 Albumin/Globulin Ratio 1.3 Impressions Impression: Colonic ileus Stool impaction GoLytely at 200 cc an hour via the NGT Assessment & Plan A&P Narrative # Colonic ileus No signs of any obstruction Abdominal x-ray done 2 days ago showed small intestine prominence but no air-fluid levels Patient most likely has colonic inertia Agree with a subset enemas Rectal tube for 24 hours and repeat x-ray tomorrow No need for a colonoscopy at this point has been extremely difficult to prep the colon for colonoscopy in this patient with altered mental status Will continue to follow Other medical problems include Dementia Essential hypertension Thank you very much for the opportunity to participate in the care of this patient Time Spent With Patient Time: Total time spent is greater than 50% in coordination of care (as documented) at patient's floor/unit and/or counseling patient:
[2025-06-09] MEDS: NA SU/NAHCO3/KC/PEG (Golytely) 4,000 ML BTL 4000 ML NG (13:17)
--- NOTE | 2025-06-09 15:59 | PC.SS ---
Rounding note: Rectal tube for 24 hours and repeat x-ray 06/10/25. Discharging to [facility] when medically clear.
--- NOTE | 2025-06-09 17:55 | VVPN_ITS ---
Telemedicine visit statement This visit was conducted with the use of interactive audio and video telecommunications system that permits real time communication between the patient and the provider. Patient's verbal consent for virtual visit was obtained on 06/09/25 at 1755. Documentation for date of: 06/09/25 Subjective Subjective Interval history: Patient is in telemetry, her mental status has been fluctuating, intermittent abdominal pain and has not had any bowel movement today. She was seen by GI and surgery, recommended enema. Virtual exam Vital Signs Temp Pulse Resp BP Pulse Ox O2 Del Method O2 Flow Rate 97.0 F 72 23 H 106/62 97 Oxy Mask 10 06/09/25 12:00 06/09/25 16:00 06/09/25 12:00 06/09/25 12:00 06/09/25 12:00 06/09/25 12:00 06/09/25 12:00 FiO2 90 06/07/25 08:00 Objective Labs 06/09/25 18:57 06/09/25 18:57 Labs: Laboratory Results - last 24 hr 06/09/25 05:35 WBC 12.2 H D RBC 4.57 Hgb 13.7 Hct 42.2 MCV 92 MCH 30.0 MCHC 32.5 RDW Std Deviation 56.0 H Plt Count 192 Neut % (Auto) 87 H Lymph % (Auto) 6 L Hubbard % (Auto) 6 Eos % (Auto) 0 Baso % (Auto) 0 Neut # (Auto) 10.6 H Lymph # (Auto) 0.8 L Hubbard # (Auto) 0.7 Eos # (Auto) 0.0 Baso # (Auto) 0.0 Immature Gran # (Auto) 0.08 H Absolute Nucleated RBC 0.00 Immature Gran % 1 H Nucleated RBC % 0 Sodium 139 Potassium 4.9 Chloride 102 Carbon Dioxide 20.3 Anion Gap 17 H BUN 31 H Creatinine 2.2 H D Estim Creat Clear Calc 23.1 L eGFR 22 L BUN/Creatinine Ratio 14 Glucose 135 H Calculated Osmolality 286 Calcium 9.3 Corrected Calcium 9.7 Total Bilirubin 1.4 H AST 19 ALT 19 Alkaline Phosphatase 77 Total Protein 6.3 Albumin 3.5 Globulin 2.8 Albumin/Globulin Ratio 1.3 Assessment & Plan Problem List (1) Altered mental status: Status: Acute Assessment and plan: with baseline dementia, secondary to sepsis, source unknown, as the blood culture remains negative continued on antibiotics. MRI brain is negative for acute intracranial abnormality. Ordered EEG to evaluate further. hold Memantine if the BP stays low. (2) Sepsis: Status: Acute Assessment and plan: on antibiotics. white count is trending down.
--- NOTE | 2025-06-09 18:42 | XR_ITS ---
EXAMINATION: AP chest single view TECHNIQUE: AP portable semiupright chest single view Date and time: June 09 from 2024, 1909 hours, comparison June 08, 2025 INDICATIONS: Shortness of breath today FINDINGS: Mild heart failure Mild enlargement cardiac contour prominent vascular congestion and perihilar edema Bilateral pleural effusions small to moderate Orogastric tube in the stomach IMPRESSION: Mild heart failure
[2025-06-09] MEDS: SODIUM CHLORIDE 0.9% 1000 ML 1,000 ML 999 ML IV (18:48)
[2025-06-09 19:11] LABS: Basophils # (Auto) 0.0 Thou/mm3 (0.0-0.2); Basophils % (Auto) 0 % (0-2.5); Eosinophils # (Auto) 0.0 Thou/mm3 (0.0-0.5); Eosinophils % (Auto) 0 % (0-10); Hematocrit 32.8 % (36.0-46.0); Hemoglobin 10.7 g/dL (12.0-16.0); Immature Granulocytes Auto 0.04 Thou/mm3 (0.00-0.00); Lymphocytes # (Auto) 0.4 Thou/mm3 (1.0-4.8); Lymphocytes % (Auto) 9 % (10-50); Mean Corpuscular HGB Conc 32.6 g/dl (31.0-37.0); Mean Corpuscular Hemoglobin 31.4 pg (25.0-35.0); Mean Corpuscular Volume 96 fL (80-100); Monocytes # (Auto) 0.3 Thou/mm3 (0.0-0.8); Monocytes % (Auto) 6 % (0-12); Neutrophils # (Auto) 3.9 Thou/mm3 (1.8-7.7); Neutrophils % (Auto) 83 % (37-80); Nucleated Red Blood Cell # 0.02 Thou/mm3 (0.00-0.00); Nucleated Red Blood Cell % 0 /100 WBC (0); Platelet Count 135 Thou/mm3 (140-440); RDW Standard Deviation 60.8 fL (36.4-46.3); Red Blood Count 3.41 Miln/mm3 (4.00-5.20); White Blood Count 4.7 Thou/mm3 (3.6-11.0)
[2025-06-09 19:15] LABS: Base Excess -10 (-3-3); HCO3 14 mEq/L (20-26); Inspired O2, VO2 Liters 15 L/min; O2 Saturation 100 % (91-98); PCO2 28 mmHg (32.0-48.0); PO2 163 mmHg (83-108); pH, Arterial 7.33 (7.35-7.45)
[2025-06-09 19:17] LABS: Allen Test Performed/OK; Puncture Site Left Radial
[2025-06-09 19:20] LABS: Lactate (Lactic Acid) 4.6 mMol/L (0.4-2.0)
[2025-06-09 19:37] LABS: Alanine Aminotransferase 13 U/L (10-49); Albumin, Serum 2.1 gm/dL (3.4-4.8); Albumin/Globulin Ratio 1.1 (1.2-2.2); Alkaline Phosphatase 91 U/L (46-116); Aspartate Amino Transferase 14 U/L (0-34); BUN/Creatinine Ratio 14 Ratio (12-20); Bilirubin,Total 0.8 mg/dL (0.3-1.2); Blood Urea Nitrogen 25 mg/dL (9-23); Calcium (Corrected) 8.2 mg/dL (8.5-10.1); Chloride 115 mMol/L (98-107); Creatinine (Component) 1.8 mg/dL (0.6-1.3); Estimated Creatinine Clearance 28.3 mL/min (>60); Globulin 1.9 gm/dL (2.3-3.5); Glucose 64 mg/dL (74-106); Osmolality,Calculated 287 (275-295); Potassium 3.2 mMol/L (3.4-5.1); Sodium 143 mMol/L (136-145); Total Protein 4.0 gm/dL (5.7-8.2); Troponin I < 0.020 ng/mL (0.0-0.045); eGFR 28 See Note
[2025-06-09 19:55] LABS: Anion Gap 17 (7-16)
[2025-06-09 19:56] LABS: Carbon Dioxide 11.1 mMol/L (20.0-31.0)
[2025-06-09 19:57] LABS: Calcium 6.7 mg/dL (8.3-10.6)
--- NOTE | 2025-06-09 20:03 | XR_ITS ---
Examination: CT abdomen and pelvis without contrast. Coronal 3-D reconstructions. Sagittal 2-D reconstructions. Date and time of exam: June 09, 2025, 2021 hours COMPARISON: June 01, 2025 INDICATIONS: Abdominal pain and sepsis today CTDI: vol (mGy): 20.3 DLP: (mGycm): 1190 Technique: Axial images of the abdomen have been obtained, 3 mm slice thickness Intravenous contrast material has not been administered. Low dose protocols were performed. One or more of the following dose reduction techniques were used; automated exposure control, adjustment of the mA and/or KV according to patient size, use of iterative reconstruction technique. Findings: Bibasilar pneumonia Pneumoperitoneum Cirrhosis with free fluid in the abdomen and Orogastric tube in the stomach No pancreatic or adrenal mass Fluid distended colon, air droplets along the wall of the colon and adjacent to the colon, air droplets do not appear to be primarily adjacent to the stomach but clinical correlation advised Gallbladder not visualized Colonic diverticulosis Atrophic uterus Urinary bladder contracted around a Ferrer catheter Prominent osteopenia IMPRESSION: Bibasilar pneumonia. Cirrhosis, mild ascites Pneumoperitoneum, air droplets along the wall of the right colon and adjacent to the colon etiology for the pneumoperitoneum would favor ischemic or perforated right colon but clinical correlation advised
[2025-06-09] MEDS: Norepinephrine/D5W 8mg/250ml 8 MG/250 ML BAG 7.952 MG IV (20:17)
--- NOTE | 2025-06-09 20:17 | PRELIM_ITS ---
Radiograph of the chest (single view). June 09, 2025 19:04 hours Clinical history: Shortness of breath Comparison: No prior study is available for comparison. Findings: The lung volumes are reduced due to poor inspiratory effort. There is mild cardiomegaly. The mediastinum and pulmonary dain are unremarkable. The aorta is ectatic. The interstitial markings are prominent. There is bilateral subsegmental atelectasis. There are small bilateral pleural effusions. Degenera tive changes are identified in the spine. A nasogastric catheter is in satisfactory position with its tip in the stomach. Impression: Mild cardiomegaly with mild interstitial pulmonary edema with small bilateral pleural effusions likely cardiogenic. Other findings as described above. Report Electronically Signed By: Johny Alvarez 06/09/2025 8:16:35 PM [EST]
[2025-06-09] MEDS: RINGERS LACTATED 1000 ML 1,000 ML 999 ML IV ×2 (21:40→22:41)
[2025-06-09 22:06] LABS: Reflex Lactate? Y
[2025-06-09] MEDS: DEXTROSE 50%-WATER INJ 50 ML SYRINGE IVP (22:13)
[2025-06-09] MEDS: POTASSIUM CHL 10 mEq IVPB 10 MEQ/100 ML BAG 100 MEQ IV (22:15)
[2025-06-09 22:21] LABS: Basophils # (Auto) 0.1 Thou/mm3 (0.0-0.2); Basophils % (Auto) 1 % (0-2.5); Eosinophils # (Auto) 0.0 Thou/mm3 (0.0-0.5); Eosinophils % (Auto) 0 % (0-10); Hematocrit 40.0 % (36.0-46.0); Hemoglobin 12.7 g/dL (12.0-16.0); Immature Granulocytes Auto 0.07 Thou/mm3 (0.00-0.00); Lymphocytes # (Auto) 0.5 Thou/mm3 (1.0-4.8); Lymphocytes % (Auto) 10 % (10-50); Mean Corpuscular HGB Conc 31.8 g/dl (31.0-37.0); Mean Corpuscular Hemoglobin 30.2 pg (25.0-35.0); Mean Corpuscular Volume 95 fL (80-100); Monocytes # (Auto) 0.3 Thou/mm3 (0.0-0.8); Monocytes % (Auto) 6 % (0-12); Neutrophils # (Auto) 3.9 Thou/mm3 (1.8-7.7); Neutrophils % (Auto) 81 % (37-80); Nucleated Red Blood Cell # 0.02 Thou/mm3 (0.00-0.00); Nucleated Red Blood Cell % 0 /100 WBC (0); Platelet Count 180 Thou/mm3 (140-440); RDW Standard Deviation 59.8 fL (36.4-46.3); Red Blood Count 4.20 Miln/mm3 (4.00-5.20); White Blood Count 4.8 Thou/mm3 (3.6-11.0)
[2025-06-09 22:28] LABS: Lactate (Lactic Acid) 7.2 mMol/L (0.4-2.0)
[2025-06-09] MEDS: HYDROCORTISONE SOD SUCC INJ 100 MG 2 ML VIAL IV (22:35)
--- NOTE | 2025-06-09 22:44 | PD.RESCONSUL ---
HPI Data of Consult Requesting Physician: Radu Tony MD Admitting Provider: Radu Tony MD Attending Provider: Radu Tony MD Primary Care Provider: Radu Tony MD Consult Narrative Reason for consult: hypotension History of present illness: Ms. Carrillo is a 80 year old female with PMH of new onset dementia, hypertension, HLD who presented with progressive confusion over the past month. Most of patient's history obtained from patient's daughter Edilma due to patient's altered mental status. Patient has had ongoing memory issues for the past 2 months, AOx1 for the past month. Also had intermittent flulike symptoms for the past month including nonproductive cough, fatigue, and a 2 day episode of n/v and diarrhea (in mid April), all of which has progressively made her weaker and less active per daughter. Previously independent with ADLs. Daughter suspects patient has not been taking her medications for the past few weeks and her house has become more unkempt over the past month. Patient lives at home alone, daughter lives in [place] and visits every weekend. Noted to be slower to respond and more tired for the past 2 days. Daughter tried to call her yesterday around noon, was not responding. Law enforcement was called due to concern, patient was found naked in recliner, altered. Upon ED arrival, GCS 14. BP 143/86, all other vitals stable. WBC 20.7, hemoglobin 17.2. Sodium 148. Anion gap 17, bicarb 24.9. BUN 24, creatinine 1.0 (baseline 0.7-0.9). Glucose 134. Lactic 4.3, LDH 350, procal negative. Calcium 9.9, phosphorus 1.8, Mg 2.1. Total bili 2.3 but liver enzymes and alk phos within normal limits. Ammonia <10. Troponin negative, BNP WNL. EKG showed sinus rhythm with occasional PVCs, no ST abnormalities noted UA showed 1+ ketones and 1+ bilirubin, negative for UTI. Head CT negative for acute infarct. CT CAP showed cirrhosis but otherwise unremarkable. Given LR bolus x2, CFX x1 Patient admitted for acute encephalopathy and sepsis rule out, unclear infection source at this time on 06/01/25. Past Medical History: as above Family History: noncontributory Surgical History: bilateral knee arthroscopy, bilateral heel bone spur surgery Social History: Denies history of smoking, denies current alcohol use, denies recreational drug use Current Medications: ASA 81 daily, atorvastatin 40 nightly, biotin 1 mg daily, vit D3, calcium 600 mg daily, cyclobenzaprine 5 mg prn, losartan 100 mg daily, meclizine prn, memantine 10 mg nightly, montelukast 10 mg nightly, vit B12 folic acid daily Allergies: Latex (rash) Throughout hospital course, patient was on IV Zoysn for underlying PNA and WBC improved and BC negative after 48 hours. Patient was stable to discharge to SNF on 06/04/25. Patient however started having hospital delirium vs worsening dementia and neurology was consulted, and recommended that could be worsening dementia in the setting of metabolic encephalopathy from underlying PNA and a colonic ileus. Surgery was consulted and recommended no surgical intervention at the time. KUB on 06/07 showed significant amount of stool and colonic ileus. Patient refused NG tube several times. 06/08/25 patient presented with abdominal distension, and surgery recommended soapsuds enema and NG tube placement. GI was consulted and placed a rectal tube and Goltely was ordered. BP continued to remain on the softer side, and BP medications were held. IV fluids continued to given throughout hospital stay. Renal US showed bladder distenstion and tapia was inserted. Rapid response was called around 1815 for low blood pressure, 76/49. Throughout rapid response, patient continued to remain lethargic but easily arousable. Patient started requiring increased oxygen requirements, increased to 10 L oxy mask. Patient was given 1 L NS, x-ray was ordered as well as repeat labs. Following intervention, white count decreased from 12.2 to 4.8, ABGs shows metabolic acidosis with a bicarb of 14 and pCO2 of 28 and a lactic acid of 4.6. Last lactic acid was normal at 06/02/2025 at 1.4. X-ray on an initial read showed possible air under the diaphragm however read at the time was currently pending. Due to patient's current clinical status with worsening blood pressure, lactic acid and extreme diffuse tenderness throughout all quadrants, decision was made to order CT abdomen pelvis stat and transfer the patient to ICU. Dr. Saxena, surgery was was updated and made aware of current clinical status of patient. CT abdomen pelvis showed bibasilar pneumonia, pneumoperitoneum favoring bowel ischemia versus right colon perforation, cirrhosis with free fluid in the abdomen, fluid distended colon with air droplets along the wall of the colon, and contracted urinary bladder. Patient was given IV Dilaudid for pain and femoral central line was placed for better access for vasopressor requirements and current shock. Dr. Saxena, surgery agreed to take patient to ICU now for ex lap procedure. Prior to surgery, patient received 4 L of fluids, 3 L LR and 1 L NS, and patient is maintaining MAP greater than 65 with Levophed rate currently at 0.11 mics/min. Ordered repeat labs which showed a repeat lactic acid of 7.2, continued left shift with normal WBC. Patient also received an amp of D50 as blood glucose was 50 and will also order stress dose steroids. cc:: cc: Radu Tony MD Review of Systems Review of Systems Systems Reviewed: All systems reviewed, normal except as documented Exam Vital Signs Temp Pulse Resp BP Pulse Ox O2 Del Method O2 Flow Rate 96.8 F 77 28 H 68/48 L 83 L Oxy Mask 20 06/09/25 19:16 06/09/25 20:17 06/09/25 19:48 06/09/25 20:17 06/09/25 19:16 06/09/25 16:00 06/09/25 19:48 FiO2 50 06/09/25 19:48 Narrative Exam General Appearance: Pt in moderate distress, moaning in pain. NG tube still secured. HEENT: NC/AT, no scleral icterus, dry mucous membranes Lungs: CTAB, no wheezes or crackles appreciated CVS: RRR, S1/S2 heard, no murmurs or rubs appreciated ABD: Severely distended, very tender to light touch throughout 4 quadrants. Bowel sounds heard. EXT: no deformity/edema/lesions/cyanosis/clubbing, radial pulses 2+ BL, DP pulses 2 + BL SKIN: Skin exam normal without any rashes except for mottling/bluish discoloration noted in plantar surface of left big toe and heel. Neuro: A&O x 1 to name. Able to move all 4 extremities. On wrist restraints Results Labs 06/10/25 03:57 06/10/25 06:13 Labs: Short CBC 06/09/25 06/09/25 06/09/25 Range/Units 05:35 18:57 22:00 WBC 12.2 H D 4.7 D 4.8 (3.6-11.0) Thou/mm3 Hgb 13.7 10.7 L D 12.7 D (12.0-16.0) g/dL Hct 42.2 32.8 L 40.0 (36.0-46.0) % Plt Count 192 135 L D 180 D (140-440) Thou/mm3 BMP 06/09/25 06/09/25 05:35 18:57 Sodium 139 143 Potassium 4.9 3.2 L D Chloride 102 115 H Carbon Dioxide 20.3 11.1 L* BUN 31 H 25 H Creatinine 2.2 H D 1.8 H Glucose 135 H 64 L D Calcium 9.3 6.7 L* D Cardiac Enzymes 06/09/25 Range/Units 18:57 Troponin I < 0.020 (0.0-0.045) ng/mL Liver Function 06/09/25 06/09/25 Range/Units 05:35 18:57 Total Bilirubin 1.4 H 0.8 D (0.3-1.2) mg/dL AST 19 14 (0-34) U/L ALT 19 13 (10-49) U/L Alkaline Phosphatase 77 91 (46-116) U/L Albumin 3.5 2.1 L D (3.4-4.8) gm/dL ABG Interpretation ABG results: 06/09/25 19:08 ABG pH 7.33 L ABG pCO2 28 L ABG pO2 163 H ABG HCO3 14 L ABG O2 Saturation 100 H ABG Base Excess -10 L Quality Measures Quality Measures none Advance care planning discussed with:: child (daughter ) Medications Home Medications and Allergies Home Medications ?Medication ?Instructions ?Recorded ?Confirmed ?Type losartan 100 mg tablet 100 mg PO QDAY 02/19/19 06/02/25 History ascorbic acid (vitamin C) 500 mg 500 mg PO QDAY 11/19/23 06/02/25 History tablet (Vitamin C) aspirin 81 mg tablet,delayed 81 mg PO QDAY 11/19/23 06/02/25 History release biotin 1 mg capsule 1 mg PO QDAY 11/19/23 06/02/25 History calcium 600 mg capsule 600 mg PO DAILY 11/19/23 06/02/25 History cholecalciferol (vitamin D3) 25 25 mcg PO QDAY 11/19/23 06/02/25 History mcg (1,000 unit) chewable tablet (Vitamin D3) meclizine 12.5 mg tablet 12.5 mg PO TID PRN Dizziness 11/19/23 06/02/25 History montelukast 10 mg tablet 10 mg PO QPM 11/19/23 06/02/25 History (Singulair) vitamin B12 0.5 mg-folic acid 1 mg 1 tab PO QDAY 11/19/23 06/02/25 History tablet atorvastatin 40 mg tablet 40 mg PO HS 06/02/25 06/02/25 History memantine 10 mg tablet 10 mg PO HS 06/02/25 06/02/25 History Allergies Allergy/AdvReac Type Severity Reaction Status Date / Time latex Allergy Severe RASH Verified 11/20/23 12:57 Visit Medications Hydrocodone Bitart/Acetaminophen (Hydrocodone/Apap 5/325 Tablet) 1 tab PO Q6HR PRN On Hold: 06/06/25 20:09 PRN Reason: ABDOMINAL CRAMPING Stop: 06/11/25 18:29 Last Admin: 06/06/25 19:28 Dose: 1 tab Dextrose (Dextrose 50%-Water Inj 50 Ml Syringe) 25 ml IV Q15MIN PRN PRN Reason: BG 50-70 responsive npo pt Stop: 07/09/25 22:09 Dextrose (Dextrose 50%-Water Inj 50 Ml Syringe) 50 ml IV Q15MIN PRN PRN Reason: BG <50 OR BG <70 & pt unresponsive Stop: 07/09/25 22:09 Glucagon (Glucagon Inj 1 Mg Vial) 1 mg IM Q15MIN PRN PRN Reason: BG <70, and no IV access Hydrocortisone Sodium Succinate (Hydrocortisone Sod Succ Inj 100 Mg 2 Ml Vial) 50 mg IM Q6HR NOAM Stop: 07/10/25 05:59 Hydromorphone HCl (Hydromorphone Inj 2 Mg/Ml Vial) 1 mg IVP Q4HR PRN; Protocol PRN Reason: PAIN Stop: 06/13/25 13:28 Last Admin: 06/09/25 10:11 Dose: 1 mg Piperacillin/Tazobactam/Dextrose (Zosyn) 3.375 gm in 50 mls @ 100 mls/hr IV Q8HR NOAM; Protocol Stop: 06/16/25 13:59 Last Admin: 06/09/25 22:28 Dose: 100 mls/hr Norepinephrine/Dextrose (Levophed In D5w 8mg/250ml) 8 mg in 250 mls @ 7.952 mls/hr IV .Q24H PRN; Protocol PRN Reason: PER PROTOCOL Stop: 07/09/25 20:10 Last Titration: 06/09/25 20:35 Dose: 0.11 mcg/kg/min, 17.495 mls/hr Potassium Chloride (Kcl Ivpb) 20 meq in 100 mls @ 50 mls/hr IV Q2H NOAM Stop: 06/10/25 02:17 Lactated Ringer's (Lactated Ringers) 1,000 mls @ 999 mls/hr IV .Q1H1M ONE Stop: 06/09/25 23:37 Last Admin: 06/09/25 22:41 Dose: 999 mls/hr Metoclopramide HCl (Metoclopramide Inj 5 Mg/Ml Vial 2 Ml) 10 mg IVP Q6HR PRN; Protocol PRN Reason: NAUSEA OR VOMITING Stop: 07/08/25 18:24 Last Admin: 06/08/25 19:23 Dose: 10 mg Pantoprazole Sodium (Pantoprazole Inj 40 Mg Vial) 40 mg IV QDAY NOAM Stop: 07/06/25 20:14 Last Admin: 06/09/25 08:57 Dose: 40 mg Discontinued Medications Ascorbic Acid (Ascorbic Acid 250 Mg Tablet) 500 mg PO QDAY NOAM Stop: 07/02/25 11:44 Last Admin: 06/06/25 09:57 Dose: 500 mg Aspirin (Aspirin Ec 81 Mg Tabec) 81 mg PO QDAY NOAM Stop: 07/03/25 08:59 Last Admin: 06/06/25 09:57 Dose: 81 mg Atorvastatin Calcium (Atorvastatin Calcium 20 Mg Tablet) 40 mg PO HS NOAM Stop: 07/02/25 20:59 Last Admin: 06/08/25 21:21 Dose: 40 mg Calcium Carbonate (Calcium Carbonate 600 Mg Tablet) 600 mg PO DAILY NOAM Stop: 07/03/25 08:59 Last Admin: 06/06/25 09:57 Dose: 600 mg Cyclobenzaprine HCl (Cyclobenzaprine 5 Mg Tablet) 5 mg PO HS PRN PRN Reason: Spasms Stop: 07/02/25 11:34 Dextrose (Dextrose 50%-Water Inj 50 Ml Syringe) 50 ml IVP X1 ONE Stop: 12/26/25 22:08 Last Admin: 06/09/25 22:13 Dose: 50 ml Gentamicin Sulfate (Gentamicin Op Malinda 0.3% 5 Ml Btl) 0 drop BOTH EYES X1 ONE Stop: 06/02/25 08:30 Last Admin: 06/02/25 10:50 Dose: 1 drop Heparin Sodium (Porcine) (Heparin Sod Inj 5000 Unit/Ml Vial) 5,000 unit SC Q12HR [facility] Stop: 06/16/25 20:59 Last Admin: 06/06/25 09:57 Dose: 5,000 unit Hydralazine HCl (Hydralazine Hcl 25 Mg Tablet) 25 mg PO TID [facility] Stop: 07/06/25 16:14 Last Admin: 06/09/25 13:20 Dose: Not Given Hydralazine HCl (Hydralazine Hcl 25 Mg Tablet) 25 mg PO TID [facility] Stop: 07/06/25 17:59 Last Admin: 06/09/25 18:33 Dose: Not Given Hydrocortisone Sodium Succinate (Hydrocortisone Sod Succ Inj 100 Mg 2 Ml Vial) 100 mg IV X1 ONE Stop: 06/09/25 22:32 Last Admin: 06/09/25 22:35 Dose: 100 mg Hydrocortisone Sodium Succinate (Hydrocortisone Sod Succ Inj 100 Mg 2 Ml Vial) 50 mg IM Q8HR [facility] Stop: 07/10/25 05:59 Hydromorphone HCl (Hydromorphone Inj 2 Mg/Ml Vial) 1 mg IVP X1 ONE Stop: 06/08/25 14:16 Last Admin: 06/08/25 14:43 Dose: 1 mg Hydromorphone HCl (Hydromorphone Inj 2 Mg/Ml Vial) 1 mg IVP X1 ONE Stop: 06/09/25 21:02 Last Admin: 06/09/25 21:15 Dose: 1 mg Ceftriaxone Sodium/Dextrose (Rocephin/D5w 1gm Iv Premix) 1 gm in 50 mls @ 100 mls/hr IV X1 ONE Stop: 06/01/25 16:46 Last Infusion: 06/01/25 19:32 Dose: Infused Lactated Ringer's (Lactated Ringers) 1,000 mls @ 999 mls/hr IV .Q1H1M ONE Stop: 06/01/25 17:18 Last Infusion: 06/01/25 20:23 Dose: Infused Lactated Ringer's (Lactated Ringers) 1,000 mls @ 999 mls/hr IV .Q1H1M ONE Stop: 06/01/25 22:12 Last Infusion: 06/02/25 01:26 Dose: Infused Sodium Chloride (Ns 0.45%) 1,000 mls @ 125 mls/hr IV .Q8H ONE Stop: 06/02/25 05:10 Last Infusion: 06/02/25 05:15 Dose: 0 mls/hr Piperacillin/Tazobactam/Dextrose (Zosyn) 3.375 gm in 50 mls @ 100 mls/hr IV Q6HR ONE; Protocol Stop: 06/01/25 06:29 Piperacillin/Tazobactam/Dextrose (Zosyn) 3.375 gm in 50 mls @ 100 mls/hr IV X1 ONE; Protocol Stop: 06/01/25 21:44 Last Infusion: 06/01/25 23:39 Dose: Infused Potassium Chloride (Kcl Ivpb) 10 meq in 100 mls @ 100 mls/hr IV Q1H NOAM Stop: 06/02/25 11:09 Last Admin: 06/02/25 11:44 Dose: 75 mls/hr Lactated Ringer's (Lactated Ringers) 1,000 mls @ 999 mls/hr IV .Q1H1M ONE Stop: 06/02/25 09:29 Last Admin: 06/02/25 08:40 Dose: 999 mls/hr Lactated Ringer's (Lactated Ringers) 1,000 mls @ 999 mls/hr IV .Q1H1M ONE Stop: 06/02/25 11:24 Last Admin: 06/02/25 10:49 Dose: 999 mls/hr Piperacillin/Tazobactam/Dextrose (Zosyn) 3.375 gm in 50 mls @ 12.5 mls/hr IV Q8HR NOAM; Protocol Stop: 06/10/25 13:59 Last Admin: 06/04/25 05:04 Dose: 12.5 mls/hr Magnesium Sulfate (Magnesium Sulfate Ivpb) 2 gm in 50 mls @ 25 mls/hr IV X1 ONE Stop: 06/04/25 10:51 Last Admin: 06/04/25 09:17 Dose: Not Given Potassium Chloride (Kcl Ivpb) 10 meq in 100 mls @ 100 mls/hr IV X1 ONE Stop: 06/06/25 20:43 Last Infusion: 06/06/25 21:25 Dose: Infused Piperacillin/Tazobactam/Dextrose (Zosyn) 3.375 gm in 50 mls @ 100 mls/hr IV Q6HR NOAM; Protocol Stop: 06/14/25 08:14 Last Admin: 06/09/25 22:27 Dose: Not Given Piperacillin/Tazobactam/Dextrose (Zosyn) 3.375 gm in 50 mls @ 100 mls/hr IV Q6HR NOMA; Protocol Stop: 06/14/25 08:14 Last Admin: 06/09/25 06:07 Dose: 100 mls/hr Sodium Chloride (Ns) 1,000 mls @ 150 mls/hr IV .Q6H40M ONE Stop: 06/08/25 21:11 Last Admin: 06/08/25 15:00 Dose: 150 mls/hr Lactated Ringer's (Lactated Ringers) 1,000 mls @ 125 mls/hr IV .Q8H ONE Stop: 06/09/25 16:06 Last Admin: 06/09/25 09:28 Dose: 125 mls/hr Sodium Chloride (Ns) 1,000 mls @ 999 mls/hr IV .Q1H1M ONE Stop: 06/09/25 19:43 Last Admin: 06/09/25 18:48 Dose: 999 mls/hr Potassium Chloride (Kcl Ivpb) 10 meq in 100 mls @ 100 mls/hr IV Q1H NOAM Stop: 06/10/25 00:04 Last Admin: 06/09/25 22:23 Dose: Not Given Norepinephrine/Dextrose (Levophed In D5w 8mg/250ml) 8 mg in 250 mls @ 7.952 mls/hr IV .Q24H PRN; Protocol PRN Reason: PER PROTOCOL Stop: 07/09/25 20:10 Lactated Ringer's (Lactated Ringers) 500 mls @ 999 mls/hr IV .Q31M ONE Stop: 06/09/25 20:41 Last Admin: 06/09/25 21:34 Dose: Not Given Lactated Ringer's (Lactated Ringers) 500 mls @ 999 mls/hr IV .Q31M ONE Stop: 06/09/25 20:58 Last Admin: 06/09/25 21:34 Dose: Not Given Lactated Ringer's (Lactated Ringers) 1,000 mls @ 999 mls/hr IV .Q1H1M ONE Stop: 06/09/25 22:20 Last Admin: 06/09/25 21:40 Dose: 999 mls/hr Lactated Ringer's (Lactated Ringers) 1,000 mls @ 999 mls/hr IV .Q1H1M ONE Stop: 06/09/25 23:25 Ketorolac Tromethamine (Ketorolac Inj 30 Mg/Ml Vial) 15 mg IVP X1 ONE Stop: 06/09/25 03:44 Last Admin: 06/09/25 04:15 Dose: 15 mg Lactulose (Lactulose Syrup 20 Gm/30 Ml Udc) 20 gm PO QDAY [facility]; Protocol Stop: 07/04/25 18:29 Last Admin: 06/09/25 08:57 Dose: 20 gm Lactulose (Lactulose Syrup 20 Gm/30 Ml Udc) 20 gm ME X1 ONE; Protocol Stop: 06/08/25 14:17 Last Admin: 06/08/25 16:10 Dose: 20 gm Lactulose (Lactulose Syrup 20 Gm/30 Ml Udc) 200 gm ME Q4H NOAM; Protocol Stop: 07/08/25 18:29 Last Admin: 06/08/25 21:18 Dose: Not Given Lidocaine HCl (Lidocaine Jelly 2% (Urojet) 10 Ml Tube) 0 ml TOP X1 ONE Stop: 06/07/25 12:23 Last Admin: 06/07/25 19:29 Dose: Not Given Losartan Potassium (Losartan Potassium 25 Mg Tablet) 100 mg PO QDAY [facility] Stop: 07/02/25 11:44 Last Admin: 06/08/25 09:36 Dose: 100 mg Meclizine HCl (Meclizine Hcl 25 Mg Tablet) 12.5 mg PO TID PRN PRN Reason: Dizziness Memantine (Memantine Hcl 5 Mg Tablet) 10 mg PO HS [facility] Stop: 07/02/25 20:59 Last Admin: 06/05/25 20:27 Dose: 10 mg Memantine (Memantine Hcl 5 Mg Tablet) 10 mg PO BID [facility] Stop: 07/06/25 08:59 Last Admin: 06/09/25 22:15 Dose: Not Given Metoprolol Tartrate (Metoprolol Tartrate 25 Mg Tablet) 50 mg PO BID [facility] Stop: 07/06/25 20:59 Last Admin: 06/09/25 08:42 Dose: Not Given Montelukast Sodium (Montelukast Sodium 10 Mg Tablet) 10 mg PO QPM [facility] Stop: 07/02/25 20:59 Last Admin: 06/05/25 20:28 Dose: 10 mg Morphine Sulfate (Morphine Sulf Inj 4 Mg/Ml Vial) 1 mg IVP Q6HR PRN; Protocol PRN Reason: pain Stop: 06/11/25 20:08 Last Admin: 06/09/25 09:10 Dose: 1 mg Non-Formulary Medication (Biotin) 1 mg PO QDAY [facility] Stop: 07/03/25 08:59 Ondansetron HCl (Ondansetron Odt 4 Mg Tabrap) 4 mg PO Q6HR PRN; Protocol PRN Reason: NAUSEA OR VOMITING Stop: 07/06/25 19:44 Ondansetron HCl (Ondansetron Inj 2 Mg/Ml Inj 2 Ml) 4 mg IVP Q6HR PRN; Protocol PRN Reason: NAUSEA OR VOMITING Stop: 07/06/25 19:47 Last Admin: 06/08/25 12:43 Dose: 4 mg Pantoprazole Sodium (Pantoprazole Inj 40 Mg Vial) 40 mg IV QDAY [facility] Stop: 07/06/25 20:14 Last Admin: 06/06/25 20:24 Dose: 40 mg Polyethylene Glycol/Electrolytes (Na Brooks/Nahco3/Romulo/Peg (Golytely) 4,000 Ml Btl) 4,000 ml NG X1 ONE Stop: 06/09/25 12:36 Last Admin: 06/09/25 13:17 Dose: 1 bottle Potassium Chloride (Potassium Chloride 20 Meq Tabcr) 40 meq PO X1 ONE Stop: 06/03/25 10:39 Last Admin: 06/03/25 11:10 Dose: 40 meq Potassium Chloride (Potassium Chloride 20 Meq Tabcr) 40 meq PO X1 ONE Stop: 06/03/25 12:39 Last Admin: 06/03/25 13:23 Dose: 40 meq Potassium Chloride (Potassium Chloride 20 Meq Tabcr) 40 meq PO X1 ONE Stop: 06/04/25 08:52 Last Admin: 06/04/25 09:01 Dose: 40 meq Risperidone (Risperidone 1 Mg Tablet) 1 mg PO X1 ONE Stop: 06/04/25 23:39 Last Admin: 06/05/25 00:20 Dose: Not Given Vitamin B Complex/Vit C/Folic Acid (Vit B12/Vit C/Fa (Nephrovite) Tablet) 1 tab PO QDAY NOAM Stop: 07/02/25 11:44 Last Admin: 06/06/25 09:58 Dose: 1 tab Vitamin D (Cholecalciferol (Vitamin D3) 1,000 Iu Tablet) 1,000 iu PO QDAY NOAM Stop: 07/03/25 08:59 Last Admin: 06/06/25 09:57 Dose: 1,000 iu Assessment & Plan Plan Ms. Carrillo is a 80 year old female with PMH of new onset dementia, hypertension, HLD who presented with progressive confusion over the past month. Most of patient's history obtained from patient's daughter Edilma due to patient's altered mental status and upgraded to ICU for shock most likely distributive in the setting of bowel ischemia and pneumoperitoneum. NEURO #Acute encephalopathy on background of progressive dementia Ddx: Septic encephalopathy vs Metabolic encephalopathy (lactic acidosis, hypoglycemia) vs Hospital delirium Dx: Serial neurologic exams, CMP, ammonia (previously normal), ABG trends, EEG Rx: -Treat underlying cause: septic shock + bowel ischemia/perforation -Maintain MAP >65 to ensure cerebral perfusion -Avoid sedating/deliriogenic meds when possible -Pain control judiciously (opioids PRN, lowest effective dose) -Reassess mental status post-operatively CARDIO #Shock Ddx: Septic shock secondary to bowel perforation/peritonitis vs Hypovolemic shock (third spacing, poor intake) Dx: Continuous telemetry, Serial lactate q4?6h, MAP monitoring via arterial line if available, EKG (baseline sinus rhythm with PVCs) Rx: -Norepinephrine to maintain MAP >=5 (currently 0.11 mcg/kg/min) -Aggressive fluid resuscitation (already received ~4L) -Stress-dose steroids (hydrocortisone 50 mg IV q6h) for refractory shock -Hold home antihypertensives -Prepare for intra-op/post-op vasopressor escalation PULM #Acute hypoxic respiratory failure #Bilateral lower lobe pneumonia #Pleural effusions #Intubated and Sedated DDx:Aspiration pneumonia, Hospital-acquired pneumonia, Volume overload vs inflammatory effusions, Sepsis-related ARDS (early) Dx: ABGs (currently respiratory compensation for metabolic acidosis), Daily CXR, Pulse oximetry, respiratory mechanics Rx: -Lung-protective ventilation and sedation with RAAS score -2 -Continue broad-spectrum antibiotics with Zosyn -Pulmonary toilet as able post-op GI/FEN #Bowel perforation with pneumoperitoneum, peritonitis, and ischemic bowel Ddx: Ischemic colitis with perforation, Stercoral colitis vs [place]?s/colonic ileus with pressure necrosis vs Less likely malignancy-related perforation Dx:CT A/P, Serial abdominal exams, Lactate trends Rx: -Emergent exploratory laparotomy (surgery aware and proceeding hopefully in AM) -Strict NPO, NG tube -Broad-spectrum antibiotics with anaerobic coverage -Pain control -Lactate trend RENAL #Acute kidney injury (pre-renal/ATN risk) #Urinary retention DDx: Sepsis-induced CITLALY, Hypotension, Volume depletion, Post-renal obstruction (bladder distention) less likely s/p tapia insertion Dx: Daily BMP, Strict I/O, Tapia catheter (already placed) Rx: -Maintain renal perfusion (MAP >=5) -Avoid nephrotoxins -Renal-dose medications -Monitor for need for STRAIGHTENING PRESS OPERATOR if worsening acidosis/oliguria HEME/ONC no active issues ENDO #Severe lactic acidosis #Hypoglycemia Ddx:Tissue hypoperfusion from shock 2/2 Bowel ischemia Dx:Serial lactates, ABGs, Fingerstick glucose q1?2h Rx: -Aggressive source control -Vasopressors + fluids -D50 PRN and D5-containing fluids if recurrent hypoglycemia -Stress-dose steroids as above ID #Septic shock Ddx:Intra-abdominal source (primary) vs Pneumonia Dx: Blood cultures (repeat if febrile or unstable), Intra-operative cultures Rx: -Broad-spectrum antibiotics (e.g., Zosyn ? Vancomycin) -Escalate per intra-op findings/cultures -Source control via surgery MSK no active issues PSYCH no active issues Health Maintenance: DVT prophylaxis: Heparin SC GI prophylaxis: IV Protonix Diet: NPO Tapia: Yes Lines: PIV, R Femoral Line Drips: Propofol, Fentanyl Vent: Tidal volume 390, respiratory rate 30,PEEP 5.0 CODE STATUS: Full code Disposition: Admitted to ICU for shock in the setting of bowel ischemia and pneumoperitoneum Patient's care and plan discussed with my attending, Dr. Yves Godwin, PGY-3 Attending Provider Attestation/Addendum Patient seen and examined at bedside with resident. Agree with assessment and plan as documented above. Patient with acute decompensation this evening, spike in lactic acid and air under diaphragm c/w perforated abdomen. Surgery consulted for emergency ex lap. Will upgrade to icu for pressor support and close monitoring pending surgical intervention. Axel Marinelli MD Critical care time spent 70mins
--- NOTE | 2025-06-09 22:48 | PC.NURSE ---
Patient taken to OR via hospital bed
--- NOTE | 2025-06-09 22:55 | ESPR_ITS ---
Documentation for date of: 06/09/25 Subjective Subjective Brief History: Patient was admitted with multiple medical problems and altered mental status. She was apparently found to be distended yesterday. She said she had a bowel movement yesterday. She is still passing flatus. She does not have much abdominal pain but she feels bloated. An NG tube was planned this morning but could not be inserted because the patient vomited. Patient's other medical pr oblem consisted of low back pain and dementia and cholesterol. Patient was operated by mail last year and 2023 for incarcerated umbilical hernia. Narrative: I was called in around 9 PM today because Ms. Carrillo was transferred to ICU following a rapid response around 7 PM. Patient dropped the blood pressure to 70s and had a diffuse abdominal pain and tenderness. She was sent to CT scan which showed free air under the diaphragm. She was transferred to ICU on 2 L of fluid was given and her blood pressure was slightly up she also was started on Levophed Exam Vital Signs Temp Pulse Resp BP Pulse Ox O2 Del Method O2 Flow Rate 96.8 F 77 28 H 68/48 L 83 L Oxy Mask 20 06/09/25 19:16 06/09/25 20:17 06/09/25 19:48 06/09/25 20:17 06/09/25 19:16 06/09/25 16:00 06/09/25 19:48 FiO2 50 06/09/25 19:48 When I arrived her vital signs were showing BP of 68/48 pulse ox was 83 heart rate was 77 Routine Abdominal Exam Comments: Examination abdomen showed distention especially in the upper abdomen but there was diffuse tenderness suggesting peritonitis Results Results: Laboratory Laboratory Narrative: Patient's laboratory workup showed WBC down to 4300. Patient had severe lactic acidosis which is 4.2 hypokalemia of potassium 3.2. Her CO2 is 11.1 Results: Imaging Imaging narrative: I reviewed the CT scan of the abdomen which showed large amounts of free air. The radiologist felt that there is some air bubbles on the right side of the colon probably ischemic Assessment & Plan Assessment Additional comments: Impression: Perforated viscus possibly colonic in origin with peritonitis Septic shock with marked lactic acidosis Hypokalemia Plan Plan: Patient has been resuscitated in the ICU by placement of a central line catheter through the right femoral vein. In the ICU her blood pressure was ar ound 80 systolic with a level of her heart rate of around 89. I talked with the family told her that the patient is very sick and may not survive either with or without operation. Since she has perforation only option in treating her is to intervene surgically and see if we can remove the perforated segment either it is the colon or small bowel. Given the patient's condition prognosis very poor. Patient may still pass away in spite of surgery. Patient's daughter Joana also was told that she may end up having a colostomy or ileostomy depending upon where the perforation is. If it is a perforation in the stomach then it will simply be involved closure of the stomach. She is agreeable and wants to go ahead with the procedure.
[2025-06-09 23:17] LABS: Albumin, Serum 2.3 gm/dL (3.4-4.8); Anion Gap 19 (7-16); Blood Urea Nitrogen 44 mg/dL (9-23); Carbon Dioxide 15.5 mMol/L (20.0-31.0); Chloride 105 mMol/L (98-107); Glucose 55 mg/dL (74-106); Magnesium 1.7 mg/dL (1.6-2.6); Osmolality,Calculated 286 (275-295); Phosphorous 5.2 mg/dL (2.4-5.1); Potassium 4.7 mMol/L (3.4-5.1); Sodium 139 mMol/L (136-145)
[2025-06-09 23:18] LABS: BUN/Creatinine Ratio 16 Ratio (12-20); Calcium (Corrected) 10.1 mg/dL (8.5-10.1); Estimated Creatinine Clearance 18.8 mL/min (>60); eGFR 18 See Note
--- NOTE | 2025-06-09 23:32 | PRELIM_ITS ---
CT scan of the abdomen and pelvis without intravenous contrast (axial sections with sagittal and coronal reformats) June 09, 20252028 hours Clinical History: abdominal pain Comparison: None available at the time of this report. Findings: Bilateral lower lobes consolidation. Small bilateral pleural effusions. The liver, gallbladder, pancreas, spleen and adrenals are unremarkable on this noncontrast study. Bilateral nonobstructing kidney stones. No evidence of bowel obstruction. No evidence of appendicitis. There is no mesenteric or retroperitoneal adenopathy. The urinary bladder is unremarkable. Complex free fluid in the peritoneal cavity. Free air in the peritoneal cavity. Degenerative changes of the imaged portions of the spine. Chronic multilevel disc disease. No acute fractures. Vascular calcifications. Esophagogastric tube in place. Large duodenal diverticulum without evidence of inflammation. Diverticulosis of the colon. The uterus and ovaries are within normal limits. Pneumatosis intestinalis in the ascending colon. Impression: Free air in the peritoneal cavity consistent with bowel perforation, the site of perforation is indeterminate. Surgical consult is recommended. Complex effusion in the peritoneal cavity consistent with acute peritonitis. Pneumatosis intestinalis in the ascending colon, suspicious for bowel ischemia. Bilateral pleural effusions. Bilateral lower lobes pneumonia. Discussion Details: Results Discussed With : Dr. Browning at 11:19 PM 06/09/2025 Report Electronically Signed By: Flakito Duque 06/09/2025 11:32:14 PM [EST]
[2025-06-09 23:42] LABS: Calcium 8.7 mg/dL (8.3-10.6); Creatinine (Component) 2.7 mg/dL (0.6-1.3)
--- NOTE | 2025-06-09 23:47 | PD.RESPROC ---
PROCEDURES: Procedure Date / Time 06/09/25 2300 Central Line Placement Right Femoral: Indication(s): shock and poor, or inadequate peripheral venous access Informed consent obtained: from patient and obtained from surrogate decision maker Time out done, and the following verified: correct patient, side and site, procedure, patient position and implants and/or equipment Patient placed on monitor/pulse ox: Yes Hand Hygiene: scrub, soap & water and alcohol-based hand rub Max Sterile Barrier Techniques used: cap, mask, sterile gown, sterile gloves and sterile full body drape Central line prep: Povidone-Iodine 1% and sterile drapes applied Local anesthesia used: lidocaine 1% Amount of anesthesia used (mL): 5 Ultrasound used for placement: Yes Sterile Technique if Ultrasound used, including sterile gel: yes Central line lumen inserted: triple Post procedure: sutured in place, good blood return, all ports aspirated, flushed, capped and sterile dressing applied Post procedure x-ray: tip of catheter in good position Patient tolerated procedure: well and no complications EBL(ml): 5 Complications: none Procedure comment: Procedure done under supervision of senior resident Dr. Godwin and attending Physician Dr. Alejandro Cordoba, PGY2
[2025-06-10] VITALS (96 sets, daily range): BP systolic 76–239; BP diastolic 44–135; PULSE 70–112; RESP 16–44; TEMP 35.6–37; O2SAT 59–100; BMI 30.1
--- NOTE | 2025-06-10 00:18 | XR_ITS ---
EXAMINATION: AP chest single view TECHNIQUE: AP portable supine chest single view Date and time: June 10, 2025, 12:25 a.m., comparison June 09, 2025 INDICATIONS: Hypoxic respiratory failure FINDINGS: Mild heart failure Mild enlargement cardiac contour with prominent vascular congestion and perihilar edema Left base pneumonia with air bronchograms and small to moderate left pleural effusion Endotracheal tube tip 3.5 cm above anselmo Orogastric tube in the stomach IMPRESSION: Mild heart failure Significant pneumonia left base Endotracheal tube tip 3.5 cm above anselmo
[2025-06-10 00:40] LABS: Base Excess -15 (-3-3); HCO3 12 mEq/L (20-26); O2 Saturation 91 % (91-98); PCO2 31 mmHg (32.0-48.0); PO2 68 mmHg (83-108)
[2025-06-10 00:51] LABS: Allen Test Not Performed; Inspired Oxygen, FIO2 100 %; Puncture Site Left Radial; pH, Arterial 7.19 (7.35-7.45)
[2025-06-10] MEDS: fentaNYL 2,500 MCG/250 ML BAG 2,500 MCG/250 ML BAG IV (00:57)
[2025-06-10] MEDS: PROPOFOL 1,000 MG IVPB 1,000 MG/100 ML VIAL 2.545 MG IV (00:58)
[2025-06-10 01:22] LABS: Reflex Lactate? Y
[2025-06-10] MEDS: POTASSIUM CHL 20 mEq IVPB 20 MEQ/100 ML BAG 50 MEQ IV ×2 (01:33→02:52)
[2025-06-10] MEDS: Sodium Bicarb Inj 8.4% SYR 50 ML SYRINGE IV (02:45)
[2025-06-10 04:15] LABS: Basophils # (Auto) 0.1 Thou/mm3 (0.0-0.2); Basophils % (Auto) 2 % (0-2.5); Eosinophils # (Auto) 0.0 Thou/mm3 (0.0-0.5); Eosinophils % (Auto) 0 % (0-10); Hematocrit 41.8 % (36.0-46.0); Hemoglobin 13.2 g/dL (12.0-16.0); Immature Granulocytes Auto 0.10 Thou/mm3 (0.00-0.00); Lactate (Lactic Acid) 10.6 mMol/L (0.4-2.0); Lymphocytes # (Auto) 0.6 Thou/mm3 (1.0-4.8); Lymphocytes % (Auto) 11 % (10-50); Mean Corpuscular HGB Conc 31.6 g/dl (31.0-37.0); Mean Corpuscular Hemoglobin 30.4 pg (25.0-35.0); Mean Corpuscular Volume 96 fL (80-100); Monocytes # (Auto) 0.3 Thou/mm3 (0.0-0.8); Monocytes % (Auto) 5 % (0-12); Neutrophils # (Auto) 4.4 Thou/mm3 (1.8-7.7); Neutrophils % (Auto) 80 % (37-80); Nucleated Red Blood Cell # 0.03 Thou/mm3 (0.00-0.00); Nucleated Red Blood Cell % 1 /100 WBC (0); Platelet Count 180 Thou/mm3 (140-440); RDW Standard Deviation 61.0 fL (36.4-46.3); Red Blood Count 4.34 Miln/mm3 (4.00-5.20); White Blood Count 5.4 Thou/mm3 (3.6-11.0)
[2025-06-10] MEDS: RINGERS LACTATED 1000 ML 1,000 ML 999 ML IV (04:39)
[2025-06-10] MEDS: PIPER/TAZO 3.375 GM PREMIX 3.375 GM/50 ML BAG IV ×2 (05:04→13:35)
[2025-06-10] MEDS: HYDROCORTISONE SOD SUCC INJ 100 MG 2 ML VIAL 50 MG IV ×2 (05:17→12:09)
[2025-06-10] MEDS: HEPARIN SOD INJ 5000 UNIT/ML VIAL SC (05:22)
[2025-06-10 05:25] LABS: Alanine Aminotransferase 21 U/L (10-49); Albumin, Serum 2.6 gm/dL (3.4-4.8); Albumin/Globulin Ratio 1.1 (1.2-2.2); Alkaline Phosphatase 149 U/L (46-116); Anion Gap 19 (7-16); Aspartate Amino Transferase 21 U/L (0-34); BUN/Creatinine Ratio 13 Ratio (12-20); Bilirubin,Total 0.9 mg/dL (0.3-1.2); Blood Urea Nitrogen 35 mg/dL (9-23); Calcium 9.4 mg/dL (8.3-10.6); Calcium (Corrected) 10.5 mg/dL (8.5-10.1); Chloride 102 mMol/L (98-107); Creatinine (Component) 2.7 mg/dL (0.6-1.3); Estimated Creatinine Clearance 18.8 mL/min (>60); Globulin 2.4 gm/dL (2.3-3.5); Glucose 106 mg/dL (74-106); Osmolality,Calculated 278 (275-295); Potassium 5.4 mMol/L (3.4-5.1); Sodium 135 mMol/L (136-145); Total Protein 5.0 gm/dL (5.7-8.2); eGFR 18 See Note
[2025-06-10 05:29] LABS: Carbon Dioxide 14.1 mMol/L (20.0-31.0)
--- NOTE | 2025-06-10 06:00 | PD.RESPROC ---
PROCEDURES: Procedure Date / Time 06/10/25 1712 Procedure Narrative Procedure Narrative: Attending Attestation: I was not present at the time of the procedure. Procedure attempted by resident at my direction for invasive BP monitoring in septic shock. Arterial Line Indication(s): frequent arterial line sampling, shock and inability to monitor non-invasive BP Informed consent obtained: obtained from surrogate decision maker Time out done, and the following verified: correct patient, side and site, procedure, patient position and implants and/or equipment Size (Gauge): 20 Technique used: guide wire technique Patient tolerated procedure: other EBL(ml): 3 Complications: none Procedure comment: Procedure was attempted a few times on left femoral artery as well as right radial artery. Pulse was weak but performed with guidance of US, however, unable to successfully place line. Both sites were cleaned and covered with gauze with pressure. Angela Godwin, PGY-3
[2025-06-10 06:56] LABS: Magnesium 1.6 mg/dL (1.6-2.6); Potassium 5.8 mMol/L (3.4-5.1)
--- NOTE | 2025-06-10 07:04 | EKG_ITS ---
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
[2025-06-10 07:10] LABS: Reflex Lactate? Y
[2025-06-10] MEDS: DEXTROSE 5%-LACTATED RINGERS 1,000 ML 50 ML IV (07:13)
[2025-06-10] MEDS: INSULIN HUM REGULAR 1 UNIT/0.01 ML (PER UNIT) 5 UNIT IV (07:15)
[2025-06-10] MEDS: DEXTROSE 50%-WATER INJ 50 ML SYRINGE IVP (07:15)
--- NOTE | 2025-06-10 08:22 | PC.PT ---
Patient will be D/C from PT services as she was upgraded to ICU and is mechanically ventilated. PT confirmed patient status with ICU munitions worker.
[2025-06-10 08:56] LABS: Lactic Acid, 3 HR 10.9 mMol/L (0.4-2.0)
[2025-06-10] MEDS: Magnesium Sulfate 4 GM Ivpb 4 GM/50 ML BAG IV (09:05)
--- NOTE | 2025-06-10 09:45 | ESPR_ITS ---
Documentation for date of: 06/10/25 Subjective Subjective Interval history: Patient is a 80 year old female with PMH of new onset dementia, hypertension, HLD who presented with progressive confusion over the past month. History was obtained from patient's daughter Edilma due to patient's altered mental status. Patient has had ongoing memory issues for the past 2 months, AOx1 for the past month. Also had intermittent flulike symptoms for the past month including nonproductive cough, fatigue, and a 2 day episode of n/v and diarrhea (in mid April), all of which has progressively made her weaker and less active per daughter. Previously independent with ADLs. Daughter suspects patient has not been taking her medications for the past few weeks and her house has become more unkempt over the past month. Patient lives at home alone, daughter lives in [place] and visits every weekend. Noted to be slower to respond and more tired for the past 2 days. Daughter tried to call her yesterday around noon, was not responding. Law enforcement was called due to concern, patient was found naked in recliner, altered. Upon ED arrival, GCS 14. BP 143/86, all other vitals stable. WBC 20.7, hemoglobin 17.2. Sodium 148. Anion gap 17, bicarb 24.9. BUN 24, creatinine 1.0 (baseline 0.7-0.9). Glucose 134. Lactic 4.3, LDH 350, procal negative. Calcium 9.9, phosphorus 1.8, Mg 2.1. Total bili 2.3 but liver enzymes and alk phos within normal limits. Ammonia <10. Troponin negative, BNP WNL. EKG showed sinus rhythm with occasional PVCs, no ST abnormalities noted UA showed 1+ ketones and 1+ bilirubin, negative for UTI. Head CT negative for acute infarct. CT CAP showed cirrhosis but otherwise unremarkable. Given LR bolus x2, CFX x1 Patient admitted for acute encephalopathy and sepsis rule out, unclear infection source at this time. Past Medical History: as above Family History: noncontributory Surgical History: bilateral knee arthroscopy, bilateral heel bone spur surgery Social History: Denies history of smoking, denies current alcohol use, denies recreational drug use Current Medications: ASA 81 daily, atorvastatin 40 nightly, biotin 1 mg daily, vit D3, calcium 600 mg daily, cyclobenzaprine 5 mg prn, losartan 100 mg daily, meclizine prn, memantine 10 mg nightly, montelukast 10 mg nightly, vit B12 folic acid daily Allergies: Latex (rash) 06/02/25: Patient seen and assessed on telemetry. AOx1, at baseline. Following commands, able to respond to simple questions appropriately. Complaining of abdominal pain, ordered gallbladder US. Denies chest pain and shortness of breath. Appears hypovolemic, UOP 500 cc overnight, will give another LR bolus x2. BP 144/84, restart home losartan. WBC downtrending, started on Zosyn overnight. Potassium 2.7, repleted. Total bili 1.4 (from 2.3). BHB mildly elevated, possible starvation ketosis. Anion gap closing, lactic acid improving, will continue to monitor. Spoke to patient's daughter Edilma over phone, obtained more history and updated her on plan. Would like to get in touch with social services manager for SNF placement. 06/03/25: Patient seen and assessed on telemetry. Conversational, back to baseline, AOx1. WBC 12.9. Potassium 2.8, repleted with 80 mEq orally. Lactic acidosis resolved. Bilirubin downtrending. Gall bladder US negative for obstruction or biliary dilation. Blood cultures negative for 24 hours. Continue Zosyn. Spoke with social, patient would like to be discharged to SNF. PT recommends SNF. Likely discharge tomorrow if blood cultures remain negative. 06/04/25: Patient seen and assessed on telemetry. At mental baseline. WBC continues to downtrend (11.1). CMP unremarkable. Blood cultures negative for 48 hours, discontinued abx. Updated patient's daughter. Pending authorization per social services manager. Anticipate discharge to SNF tomorrow. 06/05/2025 patient currently seen in telemetry overnight she got confused and was given 1 dose of Risperdal and softly restrained. During lunchtime she is more alert and awake although still confused. Labs and medications have been reviewed. No evidence of any active infection. Will monitor today-suspect related to dementia with delirium related to the hospitalization. If no improvement will request neurology consult. CT brain was negative. 06/06/2025 patient currently seen in telemetry. She still seems to be slightly confused and having memory lapses. MRI brain ordered. Awaiting neurology evaluation. She had a bowel movement yesterday. Not ready for discharge to rehab. Labs have been stable. 06/07/2025 patient currently seen in telemetry. Still seems to be confused and having significant memory lapses. MRI showed no acute stroke. Teleneurology was consulted and I did talk to the physician. Apparently patient's mental status is related to her worsening dementia in the setting of metabolic encephalopathy from underlying pneumonia and a colonic ileus. Patient complaining of abdominal pain. Dr. Saxena was consulted. Did not think she needs any surgical intervention at this point. Recommended an MRI as patient has significant amount of stool. Patient currently on antibiotics for her pneumonia and elevated white count. Cultures ordered. Care discussed with the daughter at length.Patient refused NG tube despite several attempts. Will monitor closely. KUB showed colonic ileus. 06/08/2025 patient currently seen in telemetry. Complaining of abdominal distention. saw patient-recommended to continue with soapsuds enema. After he left the hospital the nurse called that patient still continues to have abdominal pain. ICU consultation requested. Team recommended to continue with soapsuds enema and they ordered an NG tube which patient agreed today. Dilaudid was given for pain. Dr. Neil was consulted for colonic ileus. He recommended soapsuds enema. White count still elevated-currently on antibiotics for pneumonia. Blood cultures negative. Blood pressure on the soft side. Fluids were given. Will hold off on blood pressure medications. Care discussed with the daughter at length. Time spent more than 40 minutes regarding plan of care and disease management 06/09/[address] Neil-ordered GoLytely. Less abdominal distention compared to yesterday. Dr. Saxena did not think she needs any surgical intervention. Patient continues to have memory lapses and is softly restrained due to her altered mental status. Seen in telemetry. Blood pressure seems to be on the lower side. Held BP medications. IV fluids were given. WBC markedly improved to 12.2, hemoglobin 13.7, platelets 192. Creatinine elevated to 2.2. Renal ultrasound showed significant bladder distention. Ferrer catheter was inserted. Strict I&O's will be ordered. Patient has a rectal tube and is passing gas. She has colonic ileus. 06/10/2025 patient currently seen in ICU. She had a stormy course yesterday. Was transferred from telemetry to ICU for acute abdominal pain. KUB showed pneumoperitoneum. CAT scan suggested the same. Dr. Dr. Saxena took her to the OR last night. However we could not start surgery as patient was hemodynamically unstable with hypoxia and hypotension despite waiting for 2 hours in the OR. He did not open her and sent her back to ICU. Patient was intubated currently in ICU. Had a long conversation with the daughter Joana over the phone for more than 25 minutes. Explained that patient is going towards multisystem organ failure. She has a hypotension needing pressors, acute hypoxic respiratory failure needin ventilator, abdominal pain and unfortunately had perforated bowel leading to sepsis and then not a surgical candidate due to hemodynamic instability. Patient also went into [facility] with decreased urinary output and not a candidate for dialysis at this point due to hemodynamic instability. After explaining at length to the daughter she agreed that mom had a poor prognosis and her underlying dementia may not improve and she agreed for comfort care. Patient made DNR, DNI, no dialysis. ICU team on the case. Time spent today more than 45 minutes regarding plan of care and disease management. Spoke to Dr. Arora, Dr. Dr. Saxena several times. Review of Systems Review of Systems ROS Unobtainable: unobtainable due to mental status and due to endotracheal tube Exam Vital Signs Temp Pulse Resp BP Pulse Ox O2 Del Method O2 Flow Rate 35.9 C L 76 28 H 84/55 L 98 Mechanical Ventilation 20 06/10/25 08:00 06/10/25 09:15 06/10/25 09:15 06/10/25 09:15 06/10/25 09:15 06/10/25 08:00 06/09/25 19:48 FiO2 100 06/10/25 05:54 Narrative Exam GENERAL APPEARANCE: In ICU on ventilator. NECK: Neck supple, no JVD or bruit CARDIOVASCULAR: Heart regular, no murmurs LUNGS/CHEST: few rhonchi b/l ABDOMEN: Distended, discomfort noted. Bowel sounds very faint. She has NG tube and rectal tube. EXTREMITIES: No edema, clubbing or cyanosis. SKIN: Skin exam normal without any rashes MUSCULOSKELETAL: In bed NEUROLOGICAL : intubated, sedated Objective Labs 06/10/25 03:57 06/10/25 06:13 Labs: Laboratory Results - last 24 hr 06/09/25 06/09/25 06/09/25 18:57 19:08 22:00 WBC 4.7 D 4.8 RBC 3.41 L 4.20 Hgb 10.7 L D 12.7 D Hct 32.8 L 40.0 MCV 96 95 MCH 31.4 30.2 MCHC 32.6 31.8 RDW Std Deviation 60.8 H 59.8 H Plt Count 135 L D 180 D Neut % (Auto) 83 H 81 H Lymph % (Auto) 9 L 10 [place] % (Auto) 6 6 Eos % (Auto) 0 0 Baso % (Auto) 0 1 Neut # (Auto) 3.9 3.9 Lymph # (Auto) 0.4 L 0.5 L [place] # (Auto) 0.3 0.3 Eos # (Auto) 0.0 0.0 Baso # (Auto) 0.0 0.1 Immature Gran # (Auto) 0.04 H 0.07 H Absolute Nucleated RBC 0.02 H 0.02 H Immature Gran % 1 H 2 H Nucleated RBC % 0 0 Puncture Site Left Radial ABG pH 7.33 L ABG pCO2 28 L ABG pO2 163 H ABG HCO3 14 L ABG O2 Saturation 100 H ABG Base Excess -10 L Oxygen Liter Flow 15 FiO2 Sodium 143 139 Potassium 3.2 L D 4.7 D Chloride 115 H 105 Carbon Dioxide 11.1 L* 15.5 L Anion Gap 17 H 19 H BUN 25 H 44 H Creatinine 1.8 H 2.7 H D Estim Creat Clear Calc 28.3 L 18.8 L eGFR 28 L 18 L BUN/Creatinine Ratio 14 16 Glucose 64 L D 55 L Calculated Osmolality 287 286 Lactic Acid 4.6 H* 7.2 H* Calcium 6.7 L* D 8.7 D Corrected Calcium 8.2 L D 10.1 D Phosphorus 5.2 H Magnesium 1.7 Total Bilirubin 0.8 D AST 14 ALT 13 Alkaline Phosphatase 91 Troponin I < 0.020 Total Protein 4.0 L Albumin 2.1 L D 2.3 L Globulin 1.9 L Albumin/Globulin Ratio 1.1 L 06/10/25 06/10/25 06/10/25 00:35 03:57 06:13 WBC 5.4 RBC 4.34 Hgb 13.2 Hct 41.8 MCV 96 MCH 30.4 MCHC 31.6 RDW Std Deviation 61.0 H Plt Count 180 Neut % (Auto) 80 Lymph % (Auto) 11 [place] % (Auto) 5 Eos % (Auto) 0 Baso % (Auto) 2 Neut # (Auto) 4.4 Lymph # (Auto) 0.6 L [place] # (Auto) 0.3 Eos # (Auto) 0.0 Baso # (Auto) 0.1 Immature Gran # (Auto) 0.10 H Absolute Nucleated RBC 0.03 H Immature Gran % 2 H Nucleated RBC % 1 H Puncture Site Left Radial ABG pH 7.19 L* D ABG pCO2 31 L ABG pO2 68 L D ABG HCO3 12 L ABG O2 Saturation 91 ABG Base Excess -15 L Oxygen Liter Flow FiO2 100 Sodium 135 L Potassium 5.4 H D 5.8 H Chloride 102 Carbon Dioxide 14.1 L* Anion Gap 19 H BUN 35 H Creatinine 2.7 H Estim Creat Clear Calc 18.8 L eGFR 18 L BUN/Creatinine Ratio 13 Glucose 106 D Calculated Osmolality 278 Lactic Acid 10.6 H* Calcium 9.4 Corrected Calcium 10.5 H Phosphorus Magnesium 1.6 Total Bilirubin 0.9 AST 21 ALT 21 Alkaline Phosphatase 149 H D Troponin I Total Protein 5.0 L Albumin 2.6 L Globulin 2.4 Albumin/Globulin Ratio 1.1 L 06/10/25 08:26 WBC RBC Hgb Hct MCV MCH MCHC RDW Std Deviation Plt Count Neut % (Auto) Lymph % (Auto) [place] % (Auto) Eos % (Auto) Baso % (Auto) Neut # (Auto) Lymph # (Auto) [place] # (Auto) Eos # (Auto) Baso # (Auto) Immature Gran # (Auto) Absolute Nucleated RBC Immature Gran % Nucleated RBC % Puncture Site ABG pH ABG pCO2 ABG pO2 ABG HCO3 ABG O2 Saturation ABG Base Excess Oxygen Liter Flow FiO2 Sodium Potassium Chloride Carbon Dioxide Anion Gap BUN Creatinine Estim Creat Clear Calc eGFR BUN/Creatinine Ratio Glucose Calculated Osmolality Lactic Acid 10.9 H* Calcium Corrected Calcium Phosphorus Magnesium Total Bilirubin AST ALT Alkaline Phosphatase Troponin I Total Protein Albumin Globulin Albumin/Globulin Ratio ABG Interpretation ABG results: 06/09/25 06/10/25 19:08 00:35 ABG pH 7.33 L 7.19 L* D ABG pCO2 28 L 31 L ABG pO2 163 H 68 L D ABG HCO3 14 L 12 L ABG O2 Saturation 100 H 91 ABG Base Excess -10 L -15 L Assessment & Plan Assessment and plan (1) Altered mental status: Status: Acute (2) Sepsis: Status: Acute Additional Assessment & Plan Additional Plan: Patient is a 80 year old female with PMH of new onset dementia, hypertension, HLD who presented with progressive confusion over the past month, admitted to telemetry for acute encephalopathy and sepsis rule out, unclear infection source at this time. #sepsis- from perforated bowel. Dr. Saxena suggested that she is not a surgical candidate due to her hemodynamic instability and hypoxia. Conveyed the same to the daughter and she agreed for DNR, DNI, no dialysis. Considering comfort care. # Altered mental status secondary to metabolic encephalopathy and worsening underlying dementia per teleneurology. Continue with neurochecks, antibiotics for pneumonia. On memantine CT brain negative. MRI showed temporal atrophy consistent with dementia per teleneurology currently on ventilator # Urinary retention//CITLALY Ferrer catheter inserted. IV fluids given held all BP meds No UOP-patient ideally needs dialysis-currently she seems to be renal hemodynamically unstable. Daughter agreed for no further dialysis. # Leukocytosis secondary to pneumonia on chest x-ray. Added to Zosyn. Blood cultures negative WBC nl # dementia Continue memantine-spoke to the daughter patient cannot take care of herself. She is not able to take care of her finances or medications due to her dementia. Daughter planning to move her to assisted living facility in [place] #HTN Held the losartan, metoprolol, hydralazine-blood pressure on the lower side #HLD - held atorvastatin 40 mg nightly #Conjunctivitis - Appears to have conjunctivitis on exam, some crusty discharge around eyes - Possibly infection versus dry eyes iso hypovolemia Plan: - S/p gentamicin eye drops #Scattered colonic diverticulosis #Severe osteopenia #Diffuse thoracic lumbar degenerative disease - Incidental findings on CT CAP - No active treatment at this time - Outpatient follow up Time spent today more than 40 minutes regarding plan of care and disease management Health Maintenance Disposition: telemetry DVT prophylaxis: heparin SC GI prophylaxis: Protonix Diet: NPO CODE STATUS: FULL
[2025-06-10] MEDS: Norepinephrine/D5W 8mg/250ml 8 MG/250 ML BAG 14.314 MG IV (09:50)
[2025-06-10 09:58] LABS: Base Excess, Venous -17 (-3-3); O2 Saturation, Venous 74 % (96-97); PCO2, Venous 37 mmHg (36-56); PO2, Venous 47 mmHg (15-58); pH, Venous 7.11 (7.33-7.66)
[2025-06-10 10:00] LABS: Lactate (Lactic Acid) 10.6 mMol/L (0.4-2.0)
--- NOTE | 2025-06-10 11:32 | ESPR_ITS ---
Documentation for date of: 06/10/25 Subjective Subjective Interval history: Ms. Carrillo is a 80 year old female with PMH of new onset dementia, hypertension, HLD who presented with progressive confusion over the past month. Most of patient's history obtained from patient's daughter Edilma due to patient's altered mental status. Patient has had ongoing memory issues for the past 2 months, AOx1 for the past month. Also had intermittent flulike symptoms for the past month including nonproductive cough, fatigue, and a 2 day episode of n/v and diarrhea (in mid April), all of which has progressively made her weaker and less active per daughter. Previously independent with ADLs. Daughter suspects patient has not been taking her medications for the past few weeks and her house has become more unkempt over the past month. Patient lives at home alone, daughter lives in [place] and visits every weekend. Noted to be slower to respond and more tired for the past 2 days. Daughter tried to call her yesterday around noon, was not responding. Law enforcement was called due to concern, patient was found naked in recliner, altered. Upon ED arrival, GCS 14. BP 143/86, all other vitals stable. WBC 20.7, hemoglobin 17.2. Sodium 148. Anion gap 17, bicarb 24.9. BUN 24, creatinine 1.0 (baseline 0.7-0.9). Glucose 134. Lactic 4.3, LDH 350, procal negative. Calcium 9.9, phosphorus 1.8, Mg 2.1. Total bili 2.3 but liver enzymes and alk phos within normal limits. Ammonia <10. Troponin negative, BNP WNL. EKG showed sinus rhythm with occasional PVCs, no ST abnormalities noted UA showed 1+ ketones and 1+ bilirubin, negative for UTI. Head CT negative for acute infarct. CT CAP showed cirrhosis but otherwise unremarkable. Given LR bolus x2, CFX x1 Patient admitted for acute encephalopathy and sepsis rule out, unclear infection source at this time on 06/01/25. Past Medical History: as above Family History: noncontributory Surgical History: bilateral knee arthroscopy, bilateral heel bone spur surgery Social History: Denies history of smoking, denies current alcohol use, denies recreational drug use Current Medications: ASA 81 daily, atorvastatin 40 nightly, biotin 1 mg daily, vit D3, calcium 600 mg daily, cyclobenzaprine 5 mg prn, losartan 100 mg daily, meclizine prn, memantine 10 mg nightly, montelukast 10 mg nightly, vit B12 folic acid daily Allergies: Latex (rash) Throughout hospital course, patient was on IV Zoysn for underlying PNA and WBC improved and BC negative after 48 hours. Patient was stable to discharge to SNF on 06/04/25. Patient however started having hospital delirium vs worsening dementia and neurology was consulted, and recommended that could be worsening dementia in the setting of metabolic encephalopathy from underlying PNA and a colonic ileus. Surgery was consulted and recommended no surgical intervention at the time. KUB on 06/07 showed significant amount of stool and colonic ileus. Patient refused NG tube several times. 06/08/25 patient presented with abdominal distension, and surgery recommended soapsuds enema and NG tube placement. GI was consulted and placed a rectal tube and Goltely was ordered. BP continued to remain on the softer side, and BP medications were held. IV fluids continued to given throughout hospital stay. Renal US showed bladder distenstion and tapia was inserted. Rapid response was called around 1815 for low blood pressure, 76/49. Throughout rapid response, patient continued to remain lethargic but easily arousable. Patient started requiring increased oxygen requirements, increased to 10 L oxy mask. Patient was given 1 L NS, x-ray was ordered as well as repeat labs. Following intervention, white count decreased from 12.2 to 4.8, ABGs shows metabolic acidosis with a bicarb of 14 and pCO2 of 28 and a lactic acid of 4.6. Last lactic acid was normal at 06/02/2025 at 1.4. X-ray on an initial read showed possible air under the diaphragm however read at the time was currently pending. Due to patient's current clinical status with worsening blood pressure, lactic acid and extreme diffuse tenderness throughout all quadrants, decision was made to order CT abdomen pelvis stat and transfer the patient to ICU. Dr. Saxena, surgery was was updated and made aware of current clinical status of patient. CT abdomen pelvis showed bibasilar pneumonia, pneumoperitoneum favoring bowel ischemia versus right colon perforation, cirrhosis with free fluid in the abdomen, fluid distended colon with air droplets along the wall of the colon, and contracted urinary bladder. Patient was given IV Dilaudid for pain and femoral central line was placed for better access for vasopressor requirements and current shock. Dr. Saxena, surgery agreed to take patient to ICU now for ex lap procedure. Prior to surgery, patient received 4 L of fluids, 3 L LR and 1 L NS, and patient is maintaining MAP greater than 65 with Levophed rate currently at 0.11 mics/min. Ordered repeat labs which showed a repeat lactic acid of 7.2, continued left shift with normal WBC. Patient also received an amp of D50 as blood glucose was 50 and will also order stress dose steroids. 06/10/2025 This is a summary patient was upgraded overnight chest x-ray showed pneumoperitoneum CTAP showed bowel ischemia pneumoperitoneum she was put on the operating table however the pulse ox was too low and blood pressure was too low Dr. Saxena aborted the surgery before it began. She had minimal urine output until a Tapia was placed and that she had 900 mL pulled out. Zosyn and given amp bicarb push overnight. She on a D5 LR drip at [address] Tony spoke to patient's family in the morning. Patient made DNR On initial examination patient ventilated on propofol, Fent, levo, maintenance D5LR drip. POLST was signed when daughter arrived. Patient is confirming with family members next actions. Dr. Saxena spoke with daughter and we agree that surgery is not the best option based on the pillar of nonmaleficence - he does not believe the surgery will improve outcome or quality of life following the operation. Patient will speak to family and reconvene with goals of care discussion today --> at 17:00 family decided to initiate comfort measures. Exam Vital Signs Temp Pulse Resp BP Pulse Ox O2 Del Method O2 Flow Rate 96.6 F L 72 28 H 93/65 96 Mechanical Ventilation 20 06/10/25 08:00 06/10/25 10:13 06/10/25 09:15 06/10/25 09:50 06/10/25 10:13 06/10/25 08:00 06/09/25 19:48 FiO2 70 06/10/25 10:13 Narrative Exam General Appearance: Intubated. NG tube still secured. HEENT: NC/AT, no scleral icterus, dry mucous membranes Lungs: CTAB, no wheezes or crackles appreciated CVS: RRR, S1/S2 heard, no murmurs or rubs appreciated ABD: Severely distended (sedated - cannot evaluate TTP or guarding). Bowel sounds heard. EXT: no deformity/edema/lesions/cyanosis/clubbing, radial pulses 2+ BL, DP pulses 2 + BL SKIN: Skin exam normal without any rashes except for mottling/bluish discoloration noted in plantar surface of left big toe and heel. Neuro: Intubated and sedated Objective Labs 06/10/25 03:57 06/10/25 06:13 Labs: Laboratory Results - last 24 hr 06/09/25 06/09/25 06/09/25 18:57 19:08 22:00 WBC 4.7 D 4.8 RBC 3.41 L 4.20 Hgb 10.7 L D 12.7 D Hct 32.8 L 40.0 MCV 96 95 MCH 31.4 30.2 MCHC 32.6 31.8 RDW Std Deviation 60.8 H 59.8 H Plt Count 135 L D 180 D Neut % (Auto) 83 H 81 H Lymph % (Auto) 9 L 10 Greer % (Auto) 6 6 Eos % (Auto) 0 0 Baso % (Auto) 0 1 Neut # (Auto) 3.9 3.9 Lymph # (Auto) 0.4 L 0.5 L Greer # (Auto) 0.3 0.3 Eos # (Auto) 0.0 0.0 Baso # (Auto) 0.0 0.1 Immature Gran # (Auto) 0.04 H 0.07 H Absolute Nucleated RBC 0.02 H 0.02 H Immature Gran % 1 H 2 H Nucleated RBC % 0 0 Puncture Site Left Radial ABG pH 7.33 L ABG pCO2 28 L ABG pO2 163 H ABG HCO3 14 L ABG O2 Saturation 100 H ABG Base Excess -10 L VBG pH VBG pCO2 VBG pO2 VBG O2 Sat (Aleta) VBG Base Excess Oxygen Liter Flow 15 FiO2 Sodium 143 139 Potassium 3.2 L D 4.7 D Chloride 115 H 105 Carbon Dioxide 11.1 L* 15.5 L Anion Gap 17 H 19 H BUN 25 H 44 H Creatinine 1.8 H 2.7 H D Estim Creat Clear Calc 28.3 L 18.8 L eGFR 28 L 18 L BUN/Creatinine Ratio 14 16 Glucose 64 L D 55 L Calculated Osmolality 287 286 Lactic Acid 4.6 H* 7.2 H* Calcium 6.7 L* D 8.7 D Corrected Calcium 8.2 L D 10.1 D Phosphorus 5.2 H Magnesium 1.7 Total Bilirubin 0.8 D AST 14 ALT 13 Alkaline Phosphatase 91 Troponin I < 0.020 Total Protein 4.0 L Albumin 2.1 L D 2.3 L Globulin 1.9 L Albumin/Globulin Ratio 1.1 L 06/10/25 06/10/25 06/10/25 00:35 03:57 06:13 WBC 5.4 RBC 4.34 Hgb 13.2 Hct 41.8 MCV 96 MCH 30.4 MCHC 31.6 RDW Std Deviation 61.0 H Plt Count 180 Neut % (Auto) 80 Lymph % (Auto) 11 Greer % (Auto) 5 Eos % (Auto) 0 Baso % (Auto) 2 Neut # (Auto) 4.4 Lymph # (Auto) 0.6 L Greer # (Auto) 0.3 Eos # (Auto) 0.0 Baso # (Auto) 0.1 Immature Gran # (Auto) 0.10 H Absolute Nucleated RBC 0.03 H Immature Gran % 2 H Nucleated RBC % 1 H Puncture Site Left Radial ABG pH 7.19 L* D ABG pCO2 31 L ABG pO2 68 L D ABG HCO3 12 L ABG O2 Saturation 91 ABG Base Excess -15 L VBG pH VBG pCO2 VBG pO2 VBG O2 Sat (Aleta) VBG Base Excess Oxygen Liter Flow FiO2 100 Sodium 135 L Potassium 5.4 H D 5.8 H Chloride 102 Carbon Dioxide 14.1 L* Anion Gap 19 H BUN 35 H Creatinine 2.7 H Estim Creat Clear Calc 18.8 L eGFR 18 L BUN/Creatinine Ratio 13 Glucose 106 D Calculated Osmolality 278 Lactic Acid 10.6 H* Calcium 9.4 Corrected Calcium 10.5 H Phosphorus Magnesium 1.6 Total Bilirubin 0.9 AST 21 ALT 21 Alkaline Phosphatase 149 H D Troponin I Total Protein 5.0 L Albumin 2.6 L Globulin 2.4 Albumin/Globulin Ratio 1.1 L 06/10/25 06/10/25 08:26 09:44 WBC RBC Hgb Hct MCV MCH MCHC RDW Std Deviation Plt Count Neut % (Auto) Lymph % (Auto) Greer % (Auto) Eos % (Auto) Baso % (Auto) Neut # (Auto) Lymph # (Auto) Greer # (Auto) Eos # (Auto) Baso # (Auto) Immature Gran # (Auto) Absolute Nucleated RBC Immature Gran % Nucleated RBC % Puncture Site ABG pH ABG pCO2 ABG pO2 ABG HCO3 ABG O2 Saturation ABG Base Excess VBG pH 7.11 L VBG pCO2 37 VBG pO2 47 VBG O2 Sat (Aleta) 74 L VBG Base Excess -17 L Oxygen Liter Flow FiO2 Sodium Potassium Chloride Carbon Dioxide Anion Gap BUN Creatinine Estim Creat Clear Calc eGFR BUN/Creatinine Ratio Glucose Calculated Osmolality Lactic Acid 10.9 H* 10.6 H* Calcium Corrected Calcium Phosphorus Magnesium Total Bilirubin AST ALT Alkaline Phosphatase Troponin I Total Protein Albumin Globulin Albumin/Globulin Ratio ABG Interpretation ABG results: 06/09/25 06/10/25 06/10/25 19:08 00:35 09:44 ABG pH 7.33 L 7.19 L* D ABG pCO2 28 L 31 L ABG pO2 163 H 68 L D ABG HCO3 14 L 12 L ABG O2 Saturation 100 H 91 ABG Base Excess -10 L -15 L VBG pH 7.11 L VBG pCO2 37 VBG pO2 47 VBG Base Excess -17 L Quality Measures Quality Measures none Advance care planning discussed with:: child Assessment & Plan Assessment Current Active Medications: Generic Name Dose Route Start Last Admin Trade Name Freq PRN Reason Stop Dose Admin Dextrose 25 ml 06/09/25 22:10 Dextrose 50%-Water Inj 50 Ml Syringe IV 07/09/25 22:09 Q15MIN PRN BG 50-70 responsive npo pt Dextrose 50 ml 06/09/25 22:10 Dextrose 50%-Water Inj 50 Ml Syringe IV 07/09/25 22:09 Q15MIN PRN BG <50 OR BG <70 & pt unresponsive Glucagon 1 mg 06/09/25 22:10 Glucagon Inj 1 Mg Vial IM Q15MIN PRN BG <70, and no IV access Heparin Sodium (Porcine) 5,000 unit 06/10/25 06:00 06/10/25 05:22 Heparin Sod Inj 5000 Unit/Ml Vial SC 06/24/25 05:59 5,000 unit Q8HR NOAM Administration Hydrocortisone Sodium Succinate 50 mg 06/10/25 06:00 06/10/25 05:17 Hydrocortisone Sod Succ Inj 100 Mg 2 Ml Vial IV 07/10/25 05:59 50 mg Q6HR NOAM Administration Hydromorphone HCl 1 mg 06/08/25 13:29 06/09/25 10:11 Hydromorphone Inj 2 Mg/Ml Vial IVP 06/13/25 13:28 1 mg Q4HR PRN Administration PAIN Protocol Piperacillin/Tazobactam/Dextrose 3.375 gm in 50 mls @ 100 mls/hr 06/09/25 14:00 06/10/25 05:34 Zosyn IV 06/16/25 13:59 Infused Q8HR NOAM Infusion Protocol Norepinephrine/Dextrose 8 mg in 250 mls @ 7.952 mls/hr 06/09/25 20:11 06/10/25 09:50 Levophed In D5w 8mg/250ml IV 07/09/25 20:10 0.09 mcg/kg/min .Q24H PRN 14.314 mls/hr PER PROTOCOL Administration Protocol 0.05 MCG/KG/MIN Propofol 1,000 mg in 100 mls @ 2.545 mls/hr 06/10/25 00:32 06/10/25 10:00 Diprivan Ivpb IV 07/10/25 00:31 10 mcg/kg/min .Q24H PRN 5.089 mls/hr PER PROTOCOL Titration Protocol 5 MCG/KG/MIN Fentanyl Citrate 2,500 mcg in 250 mls @ 2.5 mls/hr 06/10/25 00:32 06/10/25 10:00 Sublimaze Inj 2,500 Mcg/250 Ml Bag IV 06/15/25 00:31 75 mcg/hr .Q24H PRN 7.5 mls/hr PER PROTOCOL Titration Protocol 25 MCG/HR Dextrose/Lactated Ringer's 1,000 mls @ 50 mls/hr 06/10/25 07:15 06/10/25 07:13 D5-Lr IV 07/10/25 07:14 50 mls/hr .Q20H NOAM Administration Magnesium Sulfate 4 gm in 50 mls @ 12.5 mls/hr 06/10/25 08:54 06/10/25 09:05 Magnesium Sulfate Ivpb IV 06/10/25 12:53 12.5 mls/hr X1 ONE Administration Metoclopramide HCl 10 mg 06/08/25 18:25 06/08/25 19:23 Metoclopramide Inj 5 Mg/Ml Vial 2 Ml IVP 07/08/25 18:24 10 mg Q6HR PRN Administration NAUSEA OR VOMITING Protocol Pantoprazole Sodium 40 mg 06/07/25 16:30 06/10/25 08:57 Pantoprazole Inj 40 Mg Vial IV 07/06/25 20:14 40 mg QDAY NOAM Administration Plan Ms. Carrillo is a 80 year old female with PMH of new onset dementia, hypertension, HLD who presented with progressive confusion over the past month. Most of patient's history obtained from patient's daughter Edilma due to patient's altered mental status and upgraded to ICU for shock most likely distributive in the setting of bowel ischemia and pneumoperitoneum. POLST signed today, patient is DNR with selective treatment measures, labs have been cancelled. Goals of care planned once point of contact (daughter) is able to speak with rest of her family. At 17:00 06/10/2025 family decided to initiated comfort measures. NEURO #Acute encephalopathy on background of progressive dementia Ddx: Septic encephalopathy vs Metabolic encephalopathy (lactic acidosis, hypoglycemia) vs Hospital delirium Dx: Serial neurologic exams, CMP, ammonia (previously normal), ABG trends, EEG Rx: -Treat underlying cause: septic shock + bowel ischemia/perforation -Maintain MAP >65 to ensure cerebral perfusion -Avoid sedating/deliriogenic meds when possible -Pain control judiciously (opioids PRN, lowest effective dose) -Reassess mental status post-operatively CARDIO #Shock Ddx: Septic shock secondary to bowel perforation/peritonitis vs Hypovolemic shock (third spacing, poor intake) vs cardiogenic (decreased preload) Dx: Continuous telemetry, Serial lactate q4?6h, MAP monitoring via arterial line if available, EKG (baseline sinus rhythm with PVCs) Rx: -Norepinephrine to maintain MAP >=5 (currently 0.11 mcg/kg/min) -Aggressive fluid resuscitation (already received ~4L) -Stress-dose steroids (hydrocortisone 50 mg IV q6h) for refractory shock -Hold home antihypertensives -Prepare for intra-op/post-op vasopressor escalation PULM #Acute hypoxic respiratory failure #Bilateral lower lobe pneumonia #Pleural effusions #Intubated and Sedated DDx:Aspiration pneumonia, Hospital-acquired pneumonia, Volume overload vs inflammatory effusions, Sepsis-related ARDS (early) Dx: ABGs (currently respiratory compensation for metabolic acidosis), Daily CXR, Pulse oximetry, respiratory mechanics Rx: -Lung-protective ventilation and sedation with RAAS score -2 -Continue broad-spectrum antibiotics with Zosyn -Pulmonary toilet as able post-op GI/FEN #Bowel perforation with pneumoperitoneum, peritonitis, and ischemic bowel Ddx: Ischemic colitis with perforation, Stercoral colitis vs Conway?s/colonic ileus with pressure necrosis vs Less likely malignancy-related perforation Dx:CT A/P, Serial abdominal exams, Lactate trends Rx: -Emergent exploratory laparotomy - no surgery, would not benefit from outcome -Strict NPO, NG tube -Broad-spectrum antibiotics with anaerobic coverage -Pain control -Lactate trend RENAL #Acute kidney injury (pre-renal/ATN risk) #Urinary retention DDx: Sepsis-induced CITLALY, Hypotension, Volume depletion, Post-renal obstruction (bladder distention) less likely s/p tapia insertion Dx: Daily BMP, Strict I/O, Tapia catheter (already placed) Rx: -Maintain renal perfusion (MAP >=5) -Avoid nephrotoxins -Renal-dose medications -Monitor for need for [employer] if worsening acidosis/oliguria HEME/ONC no active issues ENDO #Severe lactic acidosis #Hypoglycemia - resolved Ddx:Tissue hypoperfusion from shock 2/2 Bowel ischemia Dx:Serial lactates, ABGs, Fingerstick glucose q1?2h Rx: -Aggressive source control -Vasopressors + fluids -D50 PRN and D5-containing fluids if recurrent hypoglycemia -Stress-dose steroids as above ID #Septic shock Ddx:Intra-abdominal source (primary) vs Pneumonia Dx: Blood cultures (repeat if febrile or unstable), Intra-operative cultures Rx: -Broad-spectrum antibiotics (e.g., Zosyn ? Vancomycin) -Escalate per intra-op findings/cultures -Source control via surgery MSK no active issues PSYCH no active issues Health Maintenance: DVT prophylaxis: Heparin SC + SCDs GI prophylaxis: IV Protonix Diet: NPO Tapia: Yes Lines: PIV, R Femoral Line Drips: Propofol, Fentanyl, Levo, Maintenance LR D5 Vent: Tidal volume 390, respiratory rate 30,PEEP 5.0 CODE STATUS: DNR with selective treatments --> now on comfort measures Disposition: Admitted to ICU for shock in the setting of bowel ischemia and pneumoperitoneum Patient's care and plan discussed with my attending, Dr. Arora, and supervising resident Dr. Sher Patel, PGY-1 Attending Provider Attestation/Addendum Patient seen and examined with the above resident, Deondre Patel MD. I agree with the findings, assessment, and plan of care as documented except for any differences below. Please see addendum to discharge summary for documentation of care for final date of service, 06/10/2025.
--- NOTE | 2025-06-10 11:53 | ESPR_ITS ---
Documentation for date of: 06/10/25 Subjective Subjective Brief History: Patient was admitted with multiple medical problems and altered mental status. She was apparently found to be distended yesterday. She said she had a bowel movement yesterday. She is still passing flatus. She does not have much abdominal pain but she feels bloated. An NG tube was planned this morning but could not be inserted because the patient vomited. Patient's other medical pr oblem consisted of low back pain and dementia and cholesterol. Patient was operated by mail last year and 2023 for incarcerated umbilical hernia. Narrative: Patient was taken to the operating room last night but unfortunately she could not be explored because of unstable blood pressure and lack of oxygen saturation. Repeated attempts were made to explore her but she could never have a reasonable blood pressure in spite of multiple injections of Russell-Synephrine by the anesthesiologist. Her pulses were weak. She was therefore returned back to the ICU to continue supportive care. Exam Vital Signs Temp Pulse Resp BP Pulse Ox O2 Del Method O2 Flow Rate 96.6 F L 72 28 H 93/65 96 Mechanical Ventilation 20 06/10/25 08:00 06/10/25 10:13 06/10/25 09:15 06/10/25 09:50 06/10/25 10:13 06/10/25 08:00 06/09/25 19:48 FiO2 70 06/10/25 10:13
--- NOTE | 2025-06-10 11:54 | ESPR_ITS ---
Documentation for date of: 06/10/25 Subjective Subjective Brief History: Patient was admitted with multiple medical problems and altered mental status. She was apparently found to be distended yesterday. She said she had a bowel movement yesterday. She is still passing flatus. She does not have much abdominal pain but she feels bloated. An NG tube was planned this morning but could not be inserted because the patient vomited. Patient's other medical pr oblem consisted of low back pain and dementia and cholesterol. Patient was operated by mail last year and 2023 for incarcerated umbilical hernia. Narrative: The patient was seen today and her condition remains essentially unchanged even though her blood pressure is recordable with the Levophed. She has absolutely no urine output and her abdominal examination is unchanged Exam Vital Signs Temp Pulse Resp BP Pulse Ox O2 Del Method O2 Flow Rate 96.6 F L 72 28 H 93/65 96 Mechanical Ventilation 20 06/10/25 08:00 06/10/25 10:13 06/10/25 09:15 06/10/25 09:50 06/10/25 10:13 06/10/25 08:00 06/09/25 19:48 FiO2 70 06/10/25 10:13 Results Results: Laboratory Laboratory Narrative: Patient's laboratory workup showed deteriorating acidosis with a lactic acid of 10.5. Her pH is 7.1 and a base excess -15 on the arterial blood gas. Patient is an irreversible shock and has no chance of recovery. Another attempt to exploration may be tried but it will only delay the demise of the patient. Any positive outcome from exploration and resection of the bowel is difficult to achieve. I have discussed with Dr. Tony regarding further management. The family has agreed to do a comfort care and made her a DNR. We will sign off the case at this time
[2025-06-10 12:53] LABS: Reflex Lactate? Y
[2025-06-10 14:24] LABS: Lactic Acid, 3 HR 9.9 mMol/L (0.4-2.0)
--- NOTE | 2025-06-10 14:55 | PD.IMPROG ---
Documentation for date of: 06/10/25 Subjective Subjective Interval history: Patient evaluated In ICU Finally made by the family DNR and comfort care Patient was taken to the OR last night and then returned back to the ICU because she could not be explored because of the unstable blood pressure and hemodynamics Exam Vital Signs Temp Pulse Resp BP Pulse Ox O2 Del Method O2 Flow Rate 97.8 F 107 H 33 H 83/54 L 92 L Mechanical Ventilation 20 06/10/25 12:00 06/10/25 14:50 06/10/25 13:45 06/10/25 13:45 06/10/25 14:50 06/10/25 12:00 06/09/25 19:48 FiO2 70 06/10/25 14:50 Objective Labs 06/10/25 03:57 06/10/25 06:13 Labs: Laboratory Results - last 24 hr 06/09/25 06/09/25 06/09/25 18:57 19:08 22:00 WBC 4.7 D 4.8 RBC 3.41 L 4.20 Hgb 10.7 L D 12.7 D Hct 32.8 L 40.0 MCV 96 95 MCH 31.4 30.2 MCHC 32.6 31.8 RDW Std Deviation 60.8 H 59.8 H Plt Count 135 L D 180 D Neut % (Auto) 83 H 81 H Lymph % (Auto) 9 L 10 [place] % (Auto) 6 6 Eos % (Auto) 0 0 Baso % (Auto) 0 1 Neut # (Auto) 3.9 3.9 Lymph # (Auto) 0.4 L 0.5 L [place] # (Auto) 0.3 0.3 Eos # (Auto) 0.0 0.0 Baso # (Auto) 0.0 0.1 Immature Gran # (Auto) 0.04 H 0.07 H Absolute Nucleated RBC 0.02 H 0.02 H Immature Gran % 1 H 2 H Nucleated RBC % 0 0 Puncture Site Left Radial ABG pH 7.33 L ABG pCO2 28 L ABG pO2 163 H ABG HCO3 14 L ABG O2 Saturation 100 H ABG Base Excess -10 L VBG pH VBG pCO2 VBG pO2 VBG O2 Sat ([place]) VBG Base Excess Oxygen Liter Flow 15 FiO2 Sodium 143 139 Potassium 3.2 L D 4.7 D Chloride 115 H 105 Carbon Dioxide 11.1 L* 15.5 L Anion Gap 17 H 19 H BUN 25 H 44 H Creatinine 1.8 H 2.7 H D Estim Creat Clear Calc 28.3 L 18.8 L eGFR 28 L 18 L BUN/Creatinine Ratio 14 16 Glucose 64 L D 55 L Calculated Osmolality 287 286 Lactic Acid 4.6 H* 7.2 H* Calcium 6.7 L* D 8.7 D Corrected Calcium 8.2 L D 10.1 D Phosphorus 5.2 H Magnesium 1.7 Total Bilirubin 0.8 D AST 14 ALT 13 Alkaline Phosphatase 91 Troponin I < 0.020 Total Protein 4.0 L Albumin 2.1 L D 2.3 L Globulin 1.9 L Albumin/Globulin Ratio 1.1 L 06/10/25 06/10/25 06/10/25 00:35 03:57 06:13 WBC 5.4 RBC 4.34 Hgb 13.2 Hct 41.8 MCV 96 MCH 30.4 MCHC 31.6 RDW Std Deviation 61.0 H Plt Count 180 Neut % (Auto) 80 Lymph % (Auto) 11 [place] % (Auto) 5 Eos % (Auto) 0 Baso % (Auto) 2 Neut # (Auto) 4.4 Lymph # (Auto) 0.6 L [place] # (Auto) 0.3 Eos # (Auto) 0.0 Baso # (Auto) 0.1 Immature Gran # (Auto) 0.10 H Absolute Nucleated RBC 0.03 H Immature Gran % 2 H Nucleated RBC % 1 H Puncture Site Left Radial ABG pH 7.19 L* D ABG pCO2 31 L ABG pO2 68 L D ABG HCO3 12 L ABG O2 Saturation 91 ABG Base Excess -15 L VBG pH VBG pCO2 VBG pO2 VBG O2 Sat ([place]) VBG Base Excess Oxygen Liter Flow FiO2 100 Sodium 135 L Potassium 5.4 H D 5.8 H Chloride 102 Carbon Dioxide 14.1 L* Anion Gap 19 H BUN 35 H Creatinine 2.7 H Estim Creat Clear Calc 18.8 L eGFR 18 L BUN/Creatinine Ratio 13 Glucose 106 D Calculated Osmolality 278 Lactic Acid 10.6 H* Calcium 9.4 Corrected Calcium 10.5 H Phosphorus Magnesium 1.6 Total Bilirubin 0.9 AST 21 ALT 21 Alkaline Phosphatase 149 H D Troponin I Total Protein 5.0 L Albumin 2.6 L Globulin 2.4 Albumin/Globulin Ratio 1.1 L 12/06/10/25 06/10/25 08:26 09:44 13:45 WBC RBC Hgb Hct MCV MCH MCHC RDW Std Deviation Plt Count Neut % (Auto) Lymph % (Auto) [place] % (Auto) Eos % (Auto) Baso % (Auto) Neut # (Auto) Lymph # (Auto) [place] # (Auto) Eos # (Auto) Baso # (Auto) Immature Gran # (Auto) Absolute Nucleated RBC Immature Gran % Nucleated RBC % Puncture Site ABG pH ABG pCO2 ABG pO2 ABG HCO3 ABG O2 Saturation ABG Base Excess VBG pH 7.11 L VBG pCO2 37 VBG pO2 47 VBG O2 Sat ([place]) 74 L VBG Base Excess -17 L Oxygen Liter Flow FiO2 Sodium Potassium Chloride Carbon Dioxide Anion Gap BUN Creatinine Estim Creat Clear Calc eGFR BUN/Creatinine Ratio Glucose Calculated Osmolality Lactic Acid 10.9 H* 10.6 H* 9.9 H* Calcium Corrected Calcium Phosphorus Magnesium Total Bilirubin AST ALT Alkaline Phosphatase Troponin I Total Protein Albumin Globulin Albumin/Globulin Ratio Impressions Impression: Abdominal distention Hypotension Abdominal bloating Continue supportive care and comfort care ABG Interpretation ABG results: 06/09/25 06/10/25 06/10/25 19:08 00:35 09:44 ABG pH 7.33 L 7.19 L* D ABG pCO2 28 L 31 L ABG pO2 163 H 68 L D ABG HCO3 14 L 12 L ABG O2 Saturation 100 H 91 ABG Base Excess -10 L -15 L VBG pH 7.11 L VBG pCO2 37 VBG pO2 47 VBG Base Excess -17 L Assessment & Plan A&P Narrative # Colonic ileus No signs of any obstruction Abdominal x-ray done 2 days ago showed small intestine prominence but no air-fluid levels Patient most likely has colonic inertia Agree with a subset enemas Rectal tube for 24 hours and repeat x-ray tomorrow No need for a colonoscopy at this point has been extremely difficult to prep the colon for colonoscopy in this patient with altered mental status Will continue to follow Other medical problems include Dementia Essential hypertension Thank you very much for the opportunity to participate in the care of this patient Time Spent With Patient Time: Total time spent is greater than 50% in coordination of care (as documented) at patient's floor/unit and/or counseling patient:
--- NOTE | 2025-06-10 15:29 | PC.NURSE ---
Spoke with organ donor inside outside sales representative Freddy in regards to patients decline in GCS and goals of care discussion with family. Per organ donor network patient is not a candidate for donation due to diagnosis of bowel perforation.
[2025-06-10] MEDS: PROPOFOL 1,000 MG IVPB 1,000 MG/100 ML VIAL 5.089 MG IV (17:00)
[2025-06-10] MEDS: MORPHINE SULF INJ 4 MG/ML VIAL 2 MG IVP ×2 (17:19→18:13)
--- NOTE | 2025-06-10 17:20 | PD.RESEVENT ---
Documentation for date of: 06/10/25 Event Note Event Note: 06/10/2025 at 17:00 family with daughter (primary decision maker) decided to initiate comfort measures. Patient seen and reviewed with attending Dr. Arora and supervising resident Dr. Sher Fairchild. Note written by Deondre Patel MD PGY-1
[2025-06-10] MEDS: Morphine IV Drip 100mg/100ml 100 ML IV (17:21)
[2025-06-10] MEDS: LORazepam 2 MG/ML VIAL IVP (17:44)
--- NOTE | 2025-06-10 19:11 | VVPN_ITS ---
Telemedicine visit statement This visit was conducted with the use of interactive audio and video telecommunications system that permits real time communication between the patient and the provider. Patient's verbal consent for virtual visit was obtained on 06/10/25 at 1911. Documentation for date of: 06/10/25 Subjective Subjective Interval history: Patient is in ICU, family has agreed for DNR with comfort measures. patient got extubated this evening. Virtual exam Vital Signs Temp Pulse Resp BP Pulse Ox O2 Del Method O2 Flow Rate 98.6 F 108 H 25 H 100/57 L 91 L Mechanical Ventilation 20 06/10/25 15:15 06/10/25 15:15 06/10/25 15:15 06/10/25 15:15 06/10/25 15:15 06/10/25 12:00 06/09/25 19:48 FiO2 70 06/10/25 14:50 Objective Labs 06/10/25 03:57 06/10/25 06:13 Labs: Laboratory Results - last 24 hr 06/09/25 06/09/25 06/09/25 18:57 19:08 22:00 WBC 4.7 D 4.8 RBC 3.41 L 4.20 Hgb 10.7 L D 12.7 D Hct 32.8 L 40.0 MCV 96 95 MCH 31.4 30.2 MCHC 32.6 31.8 RDW Std Deviation 60.8 H 59.8 H Plt Count 135 L D 180 D Neut % (Auto) 83 H 81 H Lymph % (Auto) 9 L 10 [place] % (Auto) 6 6 Eos % (Auto) 0 0 Baso % (Auto) 0 1 Neut # (Auto) 3.9 3.9 Lymph # (Auto) 0.4 L 0.5 L [place] # (Auto) 0.3 0.3 Eos # (Auto) 0.0 0.0 Baso # (Auto) 0.0 0.1 Immature Gran # (Auto) 0.04 H 0.07 H Absolute Nucleated RBC 0.02 H 0.02 H Immature Gran % 1 H 2 H Nucleated RBC % 0 0 Puncture Site Left Radial ABG pH 7.33 L ABG pCO2 28 L ABG pO2 163 H ABG HCO3 14 L ABG O2 Saturation 100 H ABG Base Excess -10 L VBG pH VBG pCO2 VBG pO2 VBG O2 Sat ([place]) VBG Base Excess Oxygen Liter Flow 15 FiO2 Sodium 143 139 Potassium 3.2 L D 4.7 D Chloride 115 H 105 Carbon Dioxide 11.1 L* 15.5 L Anion Gap 17 H 19 H BUN 25 H 44 H Creatinine 1.8 H 2.7 H D Estim Creat Clear Calc 28.3 L 18.8 L eGFR 28 L 18 L BUN/Creatinine Ratio 14 16 Glucose 64 L D 55 L Calculated Osmolality 287 286 Lactic Acid 4.6 H* 7.2 H* Calcium 6.7 L* D 8.7 D Corrected Calcium 8.2 L D 10.1 D Phosphorus 5.2 H Magnesium 1.7 Total Bilirubin 0.8 D AST 14 ALT 13 Alkaline Phosphatase 91 Troponin I < 0.020 Total Protein 4.0 L Albumin 2.1 L D 2.3 L Globulin 1.9 L Albumin/Globulin Ratio 1.1 L 06/10/25 06/10/25 06/10/25 00:35 03:57 06:13 WBC 5.4 RBC 4.34 Hgb 13.2 Hct 41.8 MCV 96 MCH 30.4 MCHC 31.6 RDW Std Deviation 61.0 H Plt Count 180 Neut % (Auto) 80 Lymph % (Auto) 11 [place] % (Auto) 5 Eos % (Auto) 0 Baso % (Auto) 2 Neut # (Auto) 4.4 Lymph # (Auto) 0.6 L [place] # (Auto) 0.3 Eos # (Auto) 0.0 Baso # (Auto) 0.1 Immature Gran # (Auto) 0.10 H Absolute Nucleated RBC 0.03 H Immature Gran % 2 H Nucleated RBC % 1 H Puncture Site Left Radial ABG pH 7.19 L* D ABG pCO2 31 L ABG pO2 68 L D ABG HCO3 12 L ABG O2 Saturation 91 ABG Base Excess -15 L VBG pH VBG pCO2 VBG pO2 VBG O2 Sat ([place]) VBG Base Excess Oxygen Liter Flow FiO2 100 Sodium 135 L Potassium 5.4 H D 5.8 H Chloride 102 Carbon Dioxide 14.1 L* Anion Gap 19 H BUN 35 H Creatinine 2.7 H Estim Creat Clear Calc 18.8 L eGFR 18 L BUN/Creatinine Ratio 13 Glucose 106 D Calculated Osmolality 278 Lactic Acid 10.6 H* Calcium 9.4 Corrected Calcium 10.5 H Phosphorus Magnesium 1.6 Total Bilirubin 0.9 AST 21 ALT 21 Alkaline Phosphatase 149 H D Troponin I Total Protein 5.0 L Albumin 2.6 L Globulin 2.4 Albumin/Globulin Ratio 1.1 L 06/10/25 06/10/25 06/10/25 08:26 09:44 13:45 WBC RBC Hgb Hct MCV MCH MCHC RDW Std Deviation Plt Count Neut % (Auto) Lymph % (Auto) [place] % (Auto) Eos % (Auto) Baso % (Auto) Neut # (Auto) Lymph # (Auto) [place] # (Auto) Eos # (Auto) Baso # (Auto) Immature Gran # (Auto) Absolute Nucleated RBC Immature Gran % Nucleated RBC % Puncture Site ABG pH ABG pCO2 ABG pO2 ABG HCO3 ABG O2 Saturation ABG Base Excess VBG pH 7.11 L VBG pCO2 37 VBG pO2 47 VBG O2 Sat ([place]) 74 L VBG Base Excess -17 L Oxygen Liter Flow FiO2 Sodium Potassium Chloride Carbon Dioxide Anion Gap BUN Creatinine Estim Creat Clear Calc eGFR BUN/Creatinine Ratio Glucose Calculated Osmolality Lactic Acid 10.9 H* 10.6 H* 9.9 H* Calcium Corrected Calcium Phosphorus Magnesium Total Bilirubin AST ALT Alkaline Phosphatase Troponin I Total Protein Albumin Globulin Albumin/Globulin Ratio ABG Interpretation ABG results: 06/09/25 06/10/25 06/10/25 19:08 00:35 09:44 ABG pH 7.33 L 7.19 L* D ABG pCO2 28 L 31 L ABG pO2 163 H 68 L D ABG HCO3 14 L 12 L ABG O2 Saturation 100 H 91 ABG Base Excess -10 L -15 L VBG pH 7.11 L VBG pCO2 37 VBG pO2 47 VBG Base Excess -17 L Assessment & Plan Problem List (1) Altered mental status: Status: Acute Assessment and plan: with baseline dementia, secondary to sepsis, source unknown, as the blood culture remains negative continued on antibiotics. MRI brain is negative for acute intracranial abnormality. hold Memantine if the BP stays low. As the overall prognosis is poor, considering MRI findings and worsening neurological condition, family agreed for comfort care (2) Sepsis: Status: Acute Assessment and plan: on antibiotics.
--- NOTE | 2025-06-10 22:09 | DES_ITS ---
Documentation for date of: 06/10/25 Pronouncement Note Date and Time of Date of : 06/10/25 Time of : 22:06 PCOD Preliminary cause of : Cardiopulmonary arrest Contributing Factors (1) Altered mental status: (2) Sepsis: Summary Additional details: Called to see patient for unresponsiveness. On exam the patient was unresponsive, no spontaneous movement was observed, patient did not respond to verbal or noxious stimuli. Auscultated absent heart and breath sounds for more than 2 minutes. Peripheral pulses are absent. B/L Pupils are fixed, dilated, and corneal reflex was absent. Patient pronounced at 22:06. Dr. Marinelli notified. Next of kin including daughter were at bedside and condolences were offered. Additional Data Confirmation of : no pulse, no respirations, no heart sounds and pupils fixed and dilated Family: at bedside Attending/PCP notified?: Yes Attending physician: MD Axel Khan MD Was code activated?: No machine cloth examiner notified?: No Organ bank notified?: Yes
--- NOTE | 2025-06-11 08:47 | DES_ITS ---
<Statement entered by Jules Arora MD - 06/13/25 15:21> Patient seen and examined with the above resident, Deondre Patel MD. I agree with the findings, assessment, and plan of care as documented except for any differences below. Patient with catastrophic intraperitoneal complication from colonic ileus. Perforation of right colon based on imaging. Patient taken by surgical team with evolving sepsis but unable to adequate control BP to begin operating. Post-intubation sent back on vasopressor support. Stress steroids, additional of vasopressin, continued volume resuscitation stabilized the patient hemodynamically however ongoing goals of care discussion with family, primarily her daughter/ primary caregiver in town. Did consider role of Tablo for optimization of worsening metabolic acidosis. Given overall grim prognosis and likely associated complications post operatively in her advanced age and given medical history, discussions about risk being greater than potential benefits in her quality of life was had between surgery, PCP/ james, and family. We also participated this and provided additional details including about the role of comfort only measures. Family given most of the day to help with decision making and allowed multiple conversations between staff and family to facilitate this. Ultimately, daughter was in agreement and additional relatives agreed that the limited potential benefit and great risk of further complications warranted that the patient be transitioned to comfort measures. She after I had left but I was updated by housestaff. Total critical care time: I personally spent 60 minutes for review of physiologic parameters, directing plan of care, coordination of care with other specialists, and counseling patient's family at bedside. This is exclusive of time spent teaching housestaff or performing any separate billable procedures. Patient with high risk of further morbidity and mortality that required care only available in the ICU including for end of life treatment. Critical care services required for septic shock, viscus perforation 2/2 colonic ileus, acute renal failure, and acute respiratory failure. Documentation for date of: 06/11/25 Summary Date and Time Date of admission: 06/01/25 21:11 Summary Hospital Course: Ms. Carrillo was a 80 year old female with PMH of new onset dementia, hypertension, HLD who presented with progressive confusion over the past month. Patient admitted for acute encephalopathy and sepsis rule out, unclear infection source at this time on 06/01/25. Upon ED arrival, GCS 14. BP 143/86, all other vitals stable. WBC 20.7, Lactic 4.3, LDH 350, phosphorus 1.8. Total bili 2.3 but liver enzymes and alk phos within normal limits. EKG showed sinus rhythm with occasional PVCs, no ST abnormalities noted. UA showed 1+ ketones and 1+ bilirubin, negative for UTI. Head CT negative for acute infarct. CT CAP showed cirrhosis but otherwise unremarkable. In ED given LR bolus x2, CFX x1 Throughout hospital course, patient was on IV Zoysn for underlying PNA and WBC improved and BC negative after 48 hours. Patient was stable to discharge to SNF on 06/04/25. Patient however started having hospital delirium vs worsening dementia and neurology was consulted, and recommended that could be worsening dementia in the setting of metabolic encephalopathy from underlying PNA and a colonic ileus. Surgery was consulted and recommended no surgical intervention at the time. KUB on 06/07 showed significant amount of stool and colonic ileus. Patient refused NG tube several times. 06/08/25 patient presented with abdominal distension, and surgery recommended soapsuds enema and NG tube placement. GI was consulted and placed a rectal tube and Goltely was ordered. BP continued to remain on the softer side, and BP medications were held. IV fluids continued to given throughout hospital stay. Renal US showed bladder distenstion and tapia was inserted. Rapid response was called around 181 for low blood pressure, 76/49. Throughout rapid response, patient continued to remain lethargic but easily arousable. Patient started requiring increased oxygen requirements, i ncreased to 10 L oxy mask. Patient was given 1 L NS, x-ray was ordered as well as repeat labs. Following intervention, white count decreased from 12.2 to 4.8, ABGs shows metabolic acidosis with a bicarb of 14 and pCO2 of 28 and a lactic acid of 4.6. Last lactic acid was normal at 06/02/2025 at 1.4. X-ray on an initial read showed possible air under the diaphragm however read at the time was currently pending. Due to patient's clinical status with worsening blood pressure, lactic acid and extreme diffuse tenderness throughout all quadrants, decision was made to order CT abdomen pelvis stat and transfer the patient to ICU. Dr. Saxena, surgery was was updated and made aware of current clinical status of patient. CT abdomen pelvis showed bibasilar pneumonia, pneumoperitoneum favoring bowel ischemia versus right colon perforation, cirrhosis with free fluid in the abdomen, fluid distended colon with air droplets along the wall of the colon, and contracted urinary bladder. Patient was given IV Dilaudid for pain and femoral central line was placed for better access for vasopressor requirements and current shock. Dr. Saxena, surgery agreed to take patient to ICU for ex lap procedure. Prior to surgery, patient received 4 L of fluids, 3 L LR and 1 L NS, and patient is maintaining MAP greater than 65 with Levophed rate currently at 0.11 mics/min. Ordered repeat labs which showed a repeat lactic acid of 7.2, continued left shift with normal WBC. Patient also received an amp of D50 as blood glucose was 50 and will also order stress dose steroids. Surgery was unable to be performed as patient's oxygenation continued to desaturate and required intense pressor support. Patient was upgraded to the ICU ventilated and sedated and started on pressor support. Dr. Saxena spoke with family and did not believe surgery would improve the patient;s outcomes. Family decided to pursue comfort measures and patient that night. #Acute encephalopathy on background of progressive dementia #Shock #Acute hypoxic respiratory failure #Bilateral lower lobe pneumonia #Pleural effusions #Intubated and Sedated #Bowel perforation with pneumoperitoneum, peritonitis, and ischemic bowel #Acute kidney injury (pre-renal/ATN risk) #Urinary retention #Severe lactic acidosis #Hypoglycemia - resolved #Septic shock Patient's plan and care discussed with my attending, Dr. Arora, and supervising resident Dr. Allen Patel MD Internal Medicine PGY-1 Additional Data Attending physician: Jules Arora MD Visit Providers Provider Primary care physician: Radu Tony MD Consults: 06/02/25 07:03 Referral Wound Care Routine Comment: Instructions: new admit with redness to groin 06/03/25 05:00 Referral Physical Therapy Routine Comment: Physician Instructions: Instructions: Previously independent with ADLs but has worsening dementia. Patient lives at home alone. 06/04/25 08:00 Referral Discharge Planning Stat Comment: [facility] 06/05/25 22:19 Consult to Neurology / Tele-Neurology Routine Comment: AMS Consulting Provider: Geoffrey Godwin 06/07/25 09:49 Consult to General Surgery Routine Comment: colonic ileus Consulting Provider: Celso Cormier 06/08/25 12:26 Consult to Gastroenterology Routine Comment: Abdominal Pain Consulting Provider: Mago Neil Diagnosis Contributing Factors (1) Altered mental status: (2) Sepsis: Discharge Plan Plan Patient Disposition: Prescriptions/Referrals Referrals: Radu Tony MD [Primary Care Provider, Nephrology] Patient/Caregiver Discharge Instructions Discharge Activity: activity as tolerated and other Print Language: [place] Activity Restrictions/Additional Instructions: PT/OT Stand Alone Forms: Marah Award Info., Patient Portal Info Letter Discharge Order Discharge Orders: Discharge (Routine); Ordered 06/10/25 Ordered By: Angela Godwin
== END 2025-06-10 22:06 | disposition expired | DRG 871 ==
LOC: SERX 21:07 → SERHOLD 21:38 → S2NX 23:50 → S2SX 06-09 20:15
PROVIDERS: Nurse Practitioner Family; Student in an Organized Health Care Education/Training Program; Surgery; Admitting Provider Internal Medicine; Emergency Provider Emergency Medicine; PCP Internal Medicine; Visit Provider Internal Medicine Critical Care Medicine
PROC: (CPT 49000; principal; 2025-06-09 22:15)
DX: A41.9 Sepsis, unspecified organism (principal); G93.41 Metabolic encephalopathy; J18.9 Pneumonia, unspecified organism; J96.01 Acute respiratory failure with hypoxia; K65.9 Peritonitis, unspecified; R65.21 Severe sepsis with septic shock; N17.9 Acute kidney failure, unspecified; E87.0 Hyperosmolality and hypernatremia; K55.9 Vascular disorder of intestine, unspecified; J90 Pleural effusion, not elsewhere classified; E87.20 Acidosis, unspecified; K56.7 Ileus, unspecified; F03.90 Unspecified dementia, unspecified severity, without behavioral disturbance, psychotic disturbance, mood disturbance, and anxiety; I10 Essential (primary) hypertension; M85.80 Other specified disorders of bone density and structure, unspecified site; Z51.5 Encounter for palliative care; Z53.20 Procedure and treatment not carried out because of patient's decision for unspecified reasons; Z66 Do not resuscitate; Z74.01 Bed confinement status; K74.60 Unspecified cirrhosis of liver; K56.41 Fecal impaction; E86.1 Hypovolemia; I49.3 Ventricular premature depolarization; R33.9 Retention of urine, unspecified; H10.9 Unspecified conjunctivitis; I46.8 Cardiac arrest due to other underlying condition; E87.6 Hypokalemia; Z79.899 Other long term (current) drug therapy; Z79.82 Long term (current) use of aspirin; Z86.73 Personal history of transient ischemic attack (TIA), and cerebral infarction without residual deficits
CPT/HCPCS: 36415; 36600; 51701; 70450; 70551; 71045; 71260; 74018; 74176; 74177; 76705; 76770; 80053; 80069; 81001; 82010; 82140; 82803; 83605; 83615; 83690; 83735; 83880; 84100; 84132; 84145; 84484; 85025; 85610; 85730; 87040; 87081; 87502; 87635; 93005; 94002; 94003; 95816; 96361; 96365; 96366; 97163; 99285; A4649; J0696; J1171; J1644; J1720; J1815; J1885; J2060; J2270; J2371; J2405; J2470; J2543; J2598; J2704; J2765; J3010; J3475; J3480; J3490; J7030; J7120; J7121; Q9967; A9270; J7999